=== PATIENT | female | born 1965 | race Caucasian/White ===

== ENCOUNTER → 2017-08-21 | Outpatient (CLI) | payer BC, SELFPAY | PROVIDERS: Visit Provider Nurse Practitioner Family | DX: R11.2 Nausea with vomiting, unspecified (principal); R10.84 Generalized abdominal pain | CPT/HCPCS: 36415; 80053; 81001; 85025; 87086 ==

== ENCOUNTER → 2019-02-12 12:11 | Outpatient (CLI) | payer OTHER, SELFPAY ==
--- NOTE | 2019-02-12 12:19 | XR_ITS ---
XR hand RT min 3V HISTORY: Posttraumatic pain ITS.REASON: S/P FALL YESTERDAY, RT HAND PAIN ORDERING PHYSICIAN: Aby Manuel APRN PATIENT AGE: 53 years COMPARISON: None FINDINGS: No fracture or dislocation. No lytic or blastic change. There is normal mineralization.. The joint spaces are well-preserved. No significant degenerative/arthritic changes. No erosive changes evident.. IMPRESSION: Negative, no acute finding
== END ==
PROVIDERS: PCP Internal Medicine Adolescent Medicine; Visit Provider Nurse Practitioner Family
DX: M79.641 Pain in right hand (principal)
CPT/HCPCS: 73130

== ENCOUNTER 2020-01-07 19:40 | Observation (INO) | payer OTHER, SELFPAY ==
[2020-01-07] VITALS (9 sets, daily range): BP systolic 101–171; BP diastolic 57–97; PULSE 70–79; RESP 14–18; TEMP 36.7; O2SAT 94–99; BMI 38.3; BMI 36.6
--- NOTE | 2020-01-07 19:40 | ECG_ITS ---
APPROVED REPORT Exam: Resting ECG HR:77 bpm ECG Measurements Heart Rate 77 AXES RI 120 P 36 QRSd 74 QRS 11 QT 378 T 4 QTc 427 <Conclusion> Normal sinus rhythm Normal ECG Electronically signed by : Barry Tanner, 01/08/2020 21:55:11
--- NOTE | 2020-01-07 19:50 | HMH.EDCP ---
ED Disposition Condition on Discharge: Good - Critical Care Critical Care Time: No <Javier Alcaraz - Last Filed: 01/07/20 19:50> <Murray Patel - Last Filed: 01/07/20 20:47> Clinical Impression: Obesity (BMI 30-39.9) Chest pain Qualifiers: Chest pain type: precordial pain Qualified Code(s): R07.2 - Precordial pain Disposition: Admitted as Observation Attestation: On 01/07/20, the high probability of a clinically significant, sudden or life threatening deterioration of the following system(s) required my full and direct attention, intervention and personal management. The time I documented below is in addition to time spent performing reported procedures but includes the following listed in this critical care notation. Medical Decision Making - Medical Records Medical records reviewed: Yes: I reviewed the patient's medical records. - Greg Inquiry Pt receiving controlled substance: No - ECG Data Tracing #1 I reviewed this ECG and interpreted as documented below: Normal Sinus Rhythm: Yes - FLETCHER Score for Non-Stemi Age of Patient: 50-59 years old Heart Rate: 70-89 bpm Systolic Blood Pressure: 160-199 mmHg CHF Kill[place] Class: I-No CHF Other Risk Factors: None <Javier Alcaraz - Last Filed: 01/07/20 19:50> - Lab Data Lab results reviewed: Yes: I reviewed the patient's lab results. Result diagrams: 01/07/20 19:47 01/07/20 19:47 - Radiology Data #1 Image(s): Chest Image Reviewed: Yes I reviewed the patient's radiology image Preliminary Findings: Normal/NAD - Reevaluation(s) Time: 20:44 <Murray Patel - Last Filed: 01/07/20 20:47> Vital Signs: 01/07/20 19:42 01/07/20 19:52 01/07/20 20:02 Temperature 98.0 F Temperature Source Oral Pulse Rate [Right] 78 77 72 Respiratory Rate 18 14 Blood Pressure [Right Arm] 171/97 H 127/72 134/83 Blood Pressure Mean [Right Arm] 121 90 100 Blood Pressure Source [Right Arm] Automatic Cuff Automatic Cuff Blood Pressure Position [Right Arm] Supine Supine 02 Sat by Pulse Oximetry 98 99 98 Oxygen Delivery Method Room Air Room Air Room Air 01/07/20 20:38 Temperature Temperature Source Pulse Rate [Right] 78 Respiratory Rate 18 Blood Pressure [Right Arm] 122/80 Blood Pressure Mean [Right Arm] 94 Blood Pressure Source [Right Arm] Blood Pressure Position [Right Arm] 02 Sat by Pulse Oximetry 95 Oxygen Delivery Method Room Air - Lab Data Lab Results 01/07/20 19:47: WBC 11.2 H, RBC 4.57, Hgb 13.0, Hct 41.5, MCV 90.8, MCH 28.4, MCHC 31.2 L, RDW 13.6, Plt Count 374, MPV 8.1, Neut % (Auto) 70.3, Lymph % (Auto) 21.0, [place] % (Auto) 3.8, Eos % (Auto) 3.4, Baso % (Auto) 1.5, Neut # (Auto) 7.9 H, Lymph # (Auto) 2.4, [place] # (Auto) 0.4, Eos # (Auto) 0.4, Baso # (Auto) 0.2 01/07/20 19:47: Sodium 142, Potassium 3.6, Chloride 106, Carbon Dioxide 27, Anion Gap 12.6, BUN 5 L, Creatinine 0.50 L, Estimated Creat Clear 231, Estimated GFR 130, Est GFR ( Amer) 157, Glucose 119 H, Calcium 9.1, Troponin I < 0.01 Orders (Tests/Meds): ED MEDICATIONS Generic Name Dose Route Start Last Admin Trade Name Freq PRN Reason Stop Dose Admin Sodium Chloride 1,000 mls @ 999 mls/hr 01/07/20 20:00 01/07/20 19:53 Sod Chlor 0.9% 1000ml Bag IV 01/07/20 21:00 999 mls/hr .Q1H1M CHANDRA Administration Discontinued Medications Generic Name Dose Route Start Last Admin Trade Name Freq PRN Reason Stop Dose Admin Aspirin 324 mg 01/07/20 19:50 01/07/20 19:53 Aspirin 81mg Chewable Tablet PO 01/07/20 19:51 324 mg ONCE ONE Administration Morphine Sulfate 4 mg 01/07/20 20:05 01/07/20 20:06 Morphine 4mg/Ml Syringe IV 01/07/20 20:06 4 mg ONCE ONE Administration Nitroglycerin 1 gm 01/07/20 19:50 01/07/20 19:53 Nitroglycerin 1 Inch Oint Udp TD 01/07/20 19:51 1 gm ONCE ONE Administration Ondansetron HCl 4 mg 01/07/20 20:05 01/07/20 20:06 Zofran 4mg/2ml Vial IV 01/07/20 20:06 4 mg ONCE ONE Administration
--- NOTE | 2020-01-07 19:51 | XR_ITS ---
PROCEDURE: XR CHEST 2V CLINICAL HISTORY: chest pain COMPARISON: No exams were available for comparison FINDINGS: The cardiomediastinal silhouette and pulmonary vascularity are within normal limits. The lungs are clear without infiltrates, suspicious nodules, or pleural effusions. No acute bony abnormalities. IMPRESSION: No acute findings. Dictated by: Toney Renee MD 01/07/2020 21:08 Electronically signed by Toney Renee MD in [place] 01/07/2020 21:08
[2020-01-07 19:57] LABS: Chloride 106 mmol/L (98-107); Sodium 142 mmol/L (136-145)
[2020-01-07 19:58] LABS: Potassium 3.6 mmoL/L (3.5-5.1)
[2020-01-07 19:59] LABS: Basophils # 0.2 K/mm3 (0-0.2); Basophils % 1.5 % (0.1-2.0); Eosinophils # 0.4 K/mm3 (0.0-0.4); Eosinophils % 3.4 % (0.1-12.0); Hematocrit 41.5 % (37.0-47.0); Lymphocytes # 2.4 K/mm3 (0.7-4.5); Mean Corpuscular HGB Conc 31.2 g/dL (31.8-35.4); Mean Corpuscular Hemoglobin 28.4 pg (27.0-31.2); Mean Corpuscular Volume 90.8 fl (81-99); Mean Platelet Volume 8.1 fl (7.4-10.4); Monocytes # 0.4 K/mm3 (0.1-1.0); Monocytes % 3.8 % (1.7-9.3); Neutrophils # 7.9 K/mm3 (1.8-7.8); Neutrophils % 70.3 % (37.0-80.0); Platelet Count 374 K/mm3 (142-424); Red Blood Count 4.57 M/mm3 (4.20-5.40); Red Cell Distribution Width 13.6 % (11.5-17.5); White Blood Count 11.2 K/mm3 (4.8-10.8)
[2020-01-07 20:00] LABS: Blood Urea Nitrogen 5 mg/dl (7-17); Creatinine Clearance Estimated 231 mL/min (50-200); Estimated Glomerular Filt Rate 130 ml/min (>60); GFR (African American) 157 ML/MIN (>60)
--- NOTE | 2020-01-07 20:00 | PC.NURSE ---
with patients permission, ED staff updated pt's who is outside waiting in his vehicle.
[2020-01-07 20:01] LABS: Anion Gap 12.6 mEq/L (5-15); Calcium 9.1 mg/dl (8.4-10.2); Carbon Dioxide 27 mmol/L (22.0-30.0); Glucose 119 mg/dl (74-100)
--- NOTE | 2020-01-07 20:01 | PC.NURSE ---
Radiology staff notified of xray order
--- NOTE | 2020-01-07 20:07 | PC.NURSE ---
Radiology staff present in the ED to take pt for xray
--- NOTE | 2020-01-07 20:13 | PC.NURSE ---
Radiology staff back with patient
[2020-01-07 20:28] LABS: Troponin I < 0.01 ng/ml (0.00-0.034)
--- NOTE | 2020-01-07 20:40 | PC.NURSE ---
spoke with nato about admission vasiliy --> cristino chest pain obs room 208
--- NOTE | 2020-01-07 20:41 | PC.NURSE ---
has been updated that the pt is getting admitted.
--- NOTE | 2020-01-07 21:29 | PC.NURSE ---
pt arrived to floor via wheelchair from ED
[2020-01-07 23:17] LABS: Troponin I < 0.01 ng/ml (0.00-0.034)
[2020-01-08] VITALS: BP 100/61; PULSE 62; PULSE 70; RESP 16; TEMP 36.7; O2SAT 95
[2020-01-08 02:29] LABS: Troponin I < 0.01 ng/ml (0.00-0.034)
[2020-01-08 04:00] VITALS: BP 101/68; PULSE 67; RESP 18; TEMP 36.5; O2SAT 93
[2020-01-08 05:30] VITALS: PULSE 60
[2020-01-08 06:09] VITALS: BMI 36.6
[2020-01-08 06:25] LABS: Basophils # 0.1 K/mm3 (0-0.2); Basophils % 0.6 % (0.1-2.0); Eosinophils # 0.2 K/mm3 (0.0-0.4); Eosinophils % 2.6 % (0.1-12.0); Hematocrit 37.3 % (37.0-47.0); Hemoglobin 11.7 g/dL (12.2-16.2); Lymphocytes # 2.9 K/mm3 (0.7-4.5); Lymphocytes % 32.2 % (10-50); Mean Corpuscular HGB Conc 31.4 g/dL (31.8-35.4); Mean Corpuscular Hemoglobin 28.3 pg (27.0-31.2); Mean Platelet Volume 7.5 fl (7.4-10.4); Monocytes # 0.4 K/mm3 (0.1-1.0); Monocytes % 4.5 % (1.7-9.3); Neutrophils # 5.4 K/mm3 (1.8-7.8); Neutrophils % 60.2 % (37.0-80.0); Platelet Count 319 K/mm3 (142-424); Red Blood Count 4.15 M/mm3 (4.20-5.40); Red Cell Distribution Width 13.5 % (11.5-17.5)
[2020-01-08 06:38] LABS: Chloride 108 mmol/L (98-107); Potassium 3.7 mmoL/L (3.5-5.1); Sodium 140 mmol/L (136-145)
[2020-01-08 06:41] LABS: Anion Gap 7.7 mEq/L (5-15); Blood Urea Nitrogen 5 mg/dl (7-17); Calcium 8.3 mg/dl (8.4-10.2); Carbon Dioxide 28 mmol/L (22.0-30.0); Cholesterol 158 mg/dl (140-200); Creatinine Clearance Estimated 183 mL/min (50-200); Estimated Glomerular Filt Rate 105 ml/min (>60); GFR (African American) 127 ML/MIN (>60); Glucose 92 mg/dl (74-100); Triglycerides 120 mg/dl (30-150); VLDL Cholesterol 24 mg/dL (0-40)
[2020-01-08 06:42] LABS: Chol/HDL Ratio 4.2 (1-3.5); HDL Cholesterol 38 mg/dl (40-60); Magnesium 2.1 mg/dl (1.6-2.3)
[2020-01-08 06:52] LABS: Direct LDL Cholesterol 113.89 mg/dL (100-129)
--- NOTE | 2020-01-08 07:34 | P.CONPHA_ITS ---
[facility] Pharmacy VTE Monitoring - Patient Demographics Admission date: 01/08/20 Report Date: 01/08/20 Time: 07:34 Allergies/Adverse Reactions: Patient Allergies No Known Allergies Allergy (Verified 08/13/19 13:18) Height: 1.7 m Weight: 105.744 kg Patient Problems: Current Active Problems Chest pain (Acute) Obesity (BMI 30-39.9) (Acute) - VTE Risk Labs: VTE Related Lab Results Hgb 11.7 g/dL (12.2-16.2) L 01/08/20 05:54 Hct 37.3 % (37.0-47.0) 01/08/20 05:54 Plt Count 319 K/mm3 (142-424) 01/08/20 05:54 BUN 5 mg/dl (7-17) L 01/08/20 05:54 Creatinine 0.60 mg/dl (0.52-1.04) 01/08/20 05:54 Estimated Creat Clear 183 mL/min (50-200) 01/08/20 05:54 Was VTE Risk Assessment Performed: Yes VTE Score: 3 VTE Risk Level: Low Risk Clinical Trial Participant: No - Prophylaxis VTE Prophylaxis Ordered?: Yes Types of VTE Prophylaxis: TEDS Knee High
--- NOTE | 2020-01-08 07:36 | PC.NURSE ---
Pt to floor 2128 from ED via w/c. Following admission process, pt showered and rested well. Resting with eyes closed on rounds. No c/o chest pain, only reported legs crawling and jerking r/t RLS. All three troponins 0.01, chest pain relieved by nitro paste while in ED. Discussed pt's home meds and speaking with PCP this am to get what she needs ordered, pt verbalized understanding. NPO, ECHO completed already, awaiting cardiology consult. IV infusing well, up to bathroom with steady gait noted. Nothing acute to report, presently resting in supine position, call light w/i reach, monitoring continues.
--- NOTE | 2020-01-08 07:38 | HMH.PHAINT ---
HOME MEDICATION RECONCILIATION COMPLETED USING LIST FROM HOME PHARMACY
[2020-01-08 08:00] VITALS: BP 96/63; PULSE 77; RESP 18; TEMP 36.4; O2SAT 100
--- NOTE | 2020-01-08 08:00 | CA_ITS ---
APPROVED REPORT EXAM: Comprehensive 2D, Doppler, and color-flow Echocardiogram Utility Maintenance Worker: Blaire Jackson CRT Ht: 5 ft 6 in Wt: 233lbs BSA: 2.13 BP: 134/83 mmHg Indications: Chest Pain, Hyperlipidemia, Hypertension/HDD, smoker 2D Dimensions LVOT 1.88 cm (M/F) 1.5-2.5 M-Mode Dimensions RVDd 2.25 cm (0.9-2.6) LVDd 4.97 cm (3.5-5.7) LVDs 3.14 cm (3.5-5.7) IVSd 1.21 cm (0.6-1.1) PWd 0.79 cm (0.6-1.1) EF (Teich) 66.50% FS 36.80% EDV (Teich) 116.60 mL ESV (Teich) 39.10 mL Left Ventricle Left atrium is upper limit of normal size, left ventricle is normal size, left ventricle wall thickness is upper limit of the normal, there is preserved left ventricular systolic function, visually estimated ejection fraction 55% with no regional wall motion abnormality, diastolic parameters are inconclusive. Right Ventricle Right atrium and right ventricular normal size and contractility. Aortic Valve Aortic valve is grossly normal, there is no aortic stenosis aortic insufficiency. Mitral Valve Mitral valve is grossly normal, there is mild mitral regurgitation. Tricuspid Valve Tricuspid valve is grossly normal, there is mild tricuspid regurgitation noted, calculated right ventricular systolic pressure is 34 mmHg. Pulmonic Valve Pulmonic valve is poorly visualized. Great Vessels Aortic root is normal size. Pericardium No significant pericardial effusion noted. Conclusion 1. Normal left ventricular size, preserved left ventricular systolic function, visually estimated ejection fraction 55% with no regional wall motion abnormality, diastolic parameters are inconclusive. 2. Mild mitral and tricuspid regurgitation, calculated right ventricular systolic pressure is 34 mmHg. 3. No significant pericardial effusion noted. Electronically signed by : Doc Lucio, 01/08/2020 15:33:12
--- NOTE | 2020-01-08 08:54 | HMH.HPDC ---
General - General Admission date:: 01/07/20 Discharge date: 01/08/20 *Admission Date: 01/08/20 *Chief complaint: Chest Pain *History of present illness: 54-year-old female with 2 days of progressively worsening substernal chest pain. Denies nausea, vomiting, palpitations. Some mild shortness of breath per her report. On presentation to the ER initial work-up showed normal EKG and normal troponins. History of smoking and obesity risk factors for coronary artery disease. Patient was admitted for observation overnight and serial troponin monitoring. States exertion somewhat made her chest pain worse. Denies much improvement with rest. Able to lay flat to sleep. Denies orthopnea. Denies any injury or trauma. Does report however having a history of fibromyalgia and recently being initiated on opiate therapy for chronic pain within the past few months. No increased strain that she reports. Of note, was seen several months ago in our clinic and initiated on treatment for hypertension. Has failed to follow-up for further management of elevated blood pressure. [facility] History I have reviewed the patient's past medical history: Yes Medical History: Denies:: Diabetes Mellitus Type 1, Diabetes Mellitus Type 2 *Have you ever received a pneumonia vaccine?: No *Have you received a flu vaccine this season?: No (pt reports, I forgot to get it. ) Other Medical History: Reports: Fibromyalgia, Other Other Surgeries: Yes: , Hysterectomy-Total Amputation: No Fractures: No - *Social History Smoking Status: Current every day smoker Tobacco Type: e-cigarettes # Packs/Day (cigarettes): 1 Alcohol Intake: never Alcohol Intake Frequency:: holidays/special occasions only Substance Use Type: marijuana *Occupational Status:: employed Housing: house Household Members: spouse, children *Travel in the last 8 weeks: None Family Hx:: Diabetes, Hypertension, Heart Attack, Thyroid Disorder Review of Systems - Review of Systems Review of systems:: pertinent systems reviewed and negative unless documented below (14 point review of systems performed, pertinent positives and negatives as per HPI) Exam Vital signs and Labs for Last 24 Hours: Temp Pulse Resp BP Pulse Ox 97.6 F 77 18 96/63 L 100 01/08/20 08:00 01/08/20 08:00 01/08/20 08:00 01/08/20 08:00 01/08/20 08:00 Laboratory Results - last 24 hr 01/07/20 19:47: WBC 11.2 H, RBC 4.57, Hgb 13.0, Hct 41.5, MCV 90.8, MCH 28.4, MCHC 31.2 L, RDW 13.6, Plt Count 374, MPV 8.1, Neut % (Auto) 70.3, Lymph % (Auto) 21.0, [place] % (Auto) 3.8, Eos % (Auto) 3.4, Baso % (Auto) 1.5, Neut # (Auto) 7.9 H, Lymph # (Auto) 2.4, [place] # (Auto) 0.4, Eos # (Auto) 0.4, Baso # (Auto) 0.2 01/07/20 19:47: Sodium 142, Potassium 3.6, Chloride 106, Carbon Dioxide 27, Anion Gap 12.6, BUN 5 L, Creatinine 0.50 L, Estimated Creat Clear 231, Estimated GFR 130, Est GFR ( Amer) 157, Glucose 119 H, Calcium 9.1, Troponin I < 0.01 01/07/20 22:38: Troponin I < 0.01 01/08/20 01:55: Troponin I < 0.01 01/08/20 05:54: WBC 9.0, RBC 4.15 L, Hgb 11.7 L, Hct 37.3, MCV 90.0, MCH 28.3, MCHC 31.4 L, RDW 13.5, Plt Count 319, MPV 7.5, Neut % (Auto) 60.2, Lymph % (Auto) 32.2, [place] % (Auto) 4.5, Eos % (Auto) 2.6, Baso % (Auto) 0.6, Neut # (Auto) 5.4, Lymph # (Auto) 2.9, [place] # (Auto) 0.4, Eos # (Auto) 0.2, Baso # (Auto) 0.1 01/08/20 05:54: Sodium 140, Potassium 3.7, Chloride 108 H, Carbon Dioxide 28, Anion Gap 7.7, BUN 5 L, Creatinine 0.60, Estimated Creat Clear 183, Estimated GFR 105, Est GFR ( Amer) 127, Glucose 92 D, Calcium 8.3 L, Magnesium 2.1, Triglycerides 120, Cholesterol 158, LDL Cholesterol Direct 113.89, VLDL Cholesterol 24, HDL Cholesterol 38 L, Cholesterol/HDL Ratio 4.2 H I & O for Last 24 hours: Intake & Output 01/05/20 01/06/20 01/07/20 01/08/20 23:59 23:59 23:59 23:59 Intake Total 1000 / 1000 380 / 380 Output Total 200 / 200 Balance 1000 / 800 180 / 180 Weight 105.687 kg 105.744 kg - Consti
--- NOTE | 2020-01-08 10:41 | HMH.PHAINT ---
DISCHARGE COUNSELING COMPLETED.
== END 2020-01-08 10:15 | disposition home or self-care (01) ==
LOC: ER 20:40 → 2ND 20:46
PROVIDERS: Family Medicine; Admitting Provider Emergency Medicine; Emergency Provider Emergency Medicine; PCP Internal Medicine Adolescent Medicine; Visit Provider Internal Medicine Adolescent Medicine
DX: R07.9 Chest pain, unspecified (principal); M79.7 Fibromyalgia; F17.290 Nicotine dependence, other tobacco product, uncomplicated
CPT/HCPCS: 36415; 71046; 80048; 80061; 83735; 84484; 85025; 93005; 93306; 96365; 96375; 99285; G0378; J2405

== ENCOUNTER → 2020-04-27 09:59 | Outpatient (CLI) | payer OTHER, SELFPAY ==
--- NOTE | 2020-04-27 10:22 | CT_ITS ---
PROCEDURE: CT ABDOMEN PELVIS W CON CLINICAL INDICATION: DIARRHEA UNSPECIFIED, RLQ PAIN COMPARISON: CT ABDPELW CT ABD PELVIS W/ CONTRAST from 04/01/2017 TECHNIQUE: IV Contrast: 75ML OPTIRAY 350 Oral Contrast 20ml Gastroview Axial images obtained with sagittal and coronal reformats. All CT scans at the facility use one or more dose reduction, viz: automated exposure control, ma/kV adjustment per patient size (including targeted exams where dose is matched to indication, i.e. head), or iterative reconstruction technique. FINDINGS: Lower thorax: The lower lung lizarraga are clear and there is no pleural fluid. Cardiac size is normal. ABDOMEN: Liver: No masses or biliary dilatation. Gallbladder: Nondistended. No radio opaque stones. Pancreas: No masses or peripancreatic fluid collections. Spleen: unremarkable Adrenals: unremarkable Kidneys/ureters: The kidneys are normal in size and show symmetrical function both appearing normal. ABDOMEN & PELVIS: Stomach bowel: There is a small sliding hiatal hernia. The stomach is mildly distended with ingested food particles but otherwise appears normal. The duodenal sweep and small bowel appear grossly normal. Most of the oral contrast is in the distal small bowel and colon. Peritoneum: No abnormal fluid collections. No obvious inflammatory changes. No free air. Lymph nodes: No enlarged lymph nodes apparent. Vasculature: There is scattered arteriosclerotic calcification of the abdominal aorta and proximal common iliac arteries but there is no aneurysm. Bones: No acute fracture PELVIS: Reproductive: Post hysterectomy Bladder: The urinary bladder is partially decompressed, there is no free fluid in the pelvis. Appendix: Unremarkable. No distention or periappendiceal phlegmonous change. IMPRESSION: No acute abdominal or pelvic pathology identified Dictated by: Dr. Rob Montemayor MD 04/27/2020 13:44 Dr. Rob Montemayor MD in [place] 04/27/2020 13:44
[2020-04-27 10:34] LABS: Basophils % 0.2 % (0.1-2.0); Eosinophils # 0.1 K/mm3 (0.0-0.4); Eosinophils % 1.4 % (0.1-12.0); Hematocrit 44.1 % (37.0-47.0); Hemoglobin 14.4 g/dL (12.2-16.2); Lymphocytes # 1.8 K/mm3 (0.7-4.5); Mean Corpuscular HGB Conc 32.6 g/dL (31.8-35.4); Mean Corpuscular Hemoglobin 29.5 pg (27.0-31.2); Mean Corpuscular Volume 90.4 fl (81-99); Mean Platelet Volume 7.6 fl (7.4-10.4); Monocytes # 0.3 K/mm3 (0.1-1.0); Monocytes % 2.8 % (1.7-9.3); Neutrophils # 6.7 K/mm3 (1.8-7.8); Neutrophils % 75.4 % (37.0-80.0); Platelet Count 363 K/mm3 (142-424); Red Blood Count 4.88 M/mm3 (4.20-5.40); Red Cell Distribution Width 13.9 % (11.5-17.5); White Blood Count 8.9 K/mm3 (4.8-10.8)
[2020-04-27 11:07] LABS: Chloride 103 mmol/L (98-107)
[2020-04-27 11:08] LABS: Potassium 4.1 mmoL/L (3.5-5.1); Sodium 140 mmol/L (136-145)
[2020-04-27 11:10] LABS: Blood Urea Nitrogen 7 mg/dl (7-17); Estimated Glomerular Filt Rate 105 ml/min (>60); GFR (African American) 127 ML/MIN (>60)
[2020-04-27 11:11] LABS: Alanine Aminotransferase 20 U/L (12-78); Albumin Level 4.2 g/dl (3.5-5.0); Albumin/Globulin Ratio 1.4 (1.1-1.8); Alkaline Phosphatase 105 U/L (38-126); Anion Gap 14.1 mEq/L (5-15); Aspartate Amino Transferase 31 U/L (14-36); Bilirubin,Total 0.6 mg/dl (0.2-1.3); Calcium 9.6 mg/dl (8.4-10.2); Carbon Dioxide 27 mmol/L (22.0-30.0); Globulin 2.9 g/dL (1.3-3.2); Glucose 103 mg/dl (74-100); Lipase 37 U/L (23-300); Total Protein,Serum 7.1 g/dl (6.3-8.2)
== END ==
PROVIDERS: PCP Internal Medicine Adolescent Medicine; Visit Provider Internal Medicine Adolescent Medicine
DX: R19.7 Diarrhea, unspecified (principal); R10.31 Right lower quadrant pain
CPT/HCPCS: 36415; 74177; 80053; 83690; 85025; Q9967

== ENCOUNTER → 2020-04-28 09:26 | Outpatient (CLI) | payer OTHER, SELFPAY ==
[2020-04-28 09:29] LABS: Adenovirus F 40/41, stool Not Detected (NotDetected); Astrovirus Not Detected (NotDetected); Campylobacter Not Detected (NotDetected); Clostridium Difficile A/B, PCR Not Detected (NotDetected); Cryptosporidium Not Detected (NotDetected); Cyclospora Cayetanesis Not Detected (NotDetected); Entamoeba histolytica Not Detected (NotDetected); Enteroaggregative E coli Not Detected (NotDetected); Enteropathogenic E coli Not Detected (NotDetected); Enterotoxigenic E coli Not Detected (NotDetected); Giardia lamblia Not Detected (NotDetected); Norovirus Not Detected (NotDetected); Plesimonas Shigalloides, PCR Not Detected (NotDetected); Rotavirus A Not Detected (NotDetected); Salmonella, PCR Not Detected (NotDetected); Sapovirus Not Detected (NotDetected); Shiga-like toxin E coli Not Detected (NotDetected); Shigella Enterovasive E coli Not Detected (NotDetected); Vibrio Cholerae Not Detected (NotDetected); Vibrio, PCR Not Detected (NotDetected); Yersinia Entercolitica, PCR Not Detected (NotDetected)
[2020-05-08 09:41] LABS: Lactoferrin, Fecal, Quant. <1.00 ug/mL(g) (0.00-7.24)
[2020-05-12 10:57] LABS: Calprotectin, Fecal 22 ug/g (0-120)
== END ==
PROVIDERS: Visit Provider Internal Medicine Adolescent Medicine
DX: R10.31 Right lower quadrant pain (principal); R19.7 Diarrhea, unspecified
CPT/HCPCS: 83630; 83993; 87507

== ENCOUNTER 2020-07-18 11:26 | Emergency (ER) | payer OTHER, SELFPAY ==
[2020-07-18 12:17] VITALS: BP 166/88; PULSE 82; RESP 14; TEMP 36.9; O2SAT 97; BMI 34.4
--- NOTE | 2020-07-18 12:23 | HMH.EDUTC ---
[facility] Disposition Clinical Impression: Nausea & vomiting Qualifiers: Vomiting type: unspecified Vomiting Intractability: unspecified Qualified Code(s): R11.2 - Nausea with vomiting, unspecified Disposition: Home, Self-Care Condition on Discharge: Good Instructions: Diarrhea, DI for Vomiting -- Adult, Nausea and Vomiting-Adult, Ondansetron Additional Instructions: ? Avoid fruit juices, as these do not replace minerals and can actually increase diarrhea. ? Children and adults can use sports drinks to replenish electrolytes. Younger children and infants should use products formulated for children, like oral rehydration solutions. ? Eat food in small amounts and let your stomach recover. ? Get lots of rest. You may feel tired or weak. ? No greasy or fried foods for the next 24-48 hours BRAT diet Bananas Rice Apples and [place] ? Make sure to drink plenty of liquids ? Return if needed ? Straight to ER if any life threatening symptoms ? Zofran as prescribed ? You was given an outpatient order for diarrhea panel, please collect specimen and bring back to outpatient lab then call back to the [facility] or follow up with family doctor for results ? Follow up with family doctor in the next 48-72 hours if no improvement or any worsening of symptoms You was tested for today for COVID19 your test result should be back in the next 24-48 hours, you may call to the [facility] tomorrow to see if your test results are back and the result [phone] You was given a handout with instructions for Self Quarantine and Self isolation for while you wait on test results and what to do if they are positive If you are positive the Health Dept will be contacting you also Prescriptions: Ondansetron [Zofran 4mg ODT] 4 mg PO TIDP PRN #9 tab PRN Reason: Nausea Transmission Status: Received by [facility] #[id number] Referrals: Barry Tanner MD [Primary Care Provider] - As needed Forms: Work/School Release Time of Disposition: 12:30 Medical Decision Making - Greg Inquiry Pt receiving controlled substance: No Greg was queried for this patient: No Vital Signs: 07/18/20 12:17 Temperature 98.5 F Temperature Source Oral Pulse Rate [Left Radial] 82 Respiratory Rate 14 Blood Pressure [Right Arm] 166/88 H Blood Pressure Mean [Right Arm] 114 Blood Pressure Source [Right Arm] Automatic Cuff Blood Pressure Position [Right Arm] Sitting 02 Sat by Pulse Oximetry 97 Oxygen Delivery Method Room Air Orders (Tests/Meds): ED MEDICATIONS Discontinued Medications Generic Name Dose Route Start Last Admin Trade Name Jose PRN Reason Stop Dose Admin Ondansetron HCl 4 mg 07/18/20 11:59 07/18/20 12:17 Ondansetron 4mg Odt SL 07/18/20 12:00 4 mg ONCE ONE Administration ORDERS Category Date Time Status Covid-19 Nasal PCR ([facility]) Routine Lab 07/18/20 11:45 Received Medical Decision Narrative: Patient reports that nausea improved after zofran no vomiting or diarrhea since arrival [facility] HPI - General Stated complaint: vomiting,diarrhea X 3 days Time Seen by Provider: 07/18/20 12:23 Mode of Arrival: Ambulatory Source of Information: Patient Limitations: No Limitations Description of Symptoms (Recalled from Triage Doc. by RN): pt states she has had vomiting and diarrhea for 3 days as well as a headache that started yesterday HEENT Symptoms (Recalled from RN notes): Yes (headache) Resp Symptoms (Recalled from RN notes): No Skin Symptoms (Recalled from RN notes): No MS Symptoms (Recalled from RN notes): No Functional Status (Recalled from RN notes): wnl - History of Present Illness Provider Complaint: Patient states that she has been having nausea and diarrhea on and off for about 3 days States that today diarrhea is better but she is still having some nausea and vomited earlier today States that she was worried that she may have COVID and wanted to get tested - Related Data Home Medications Medication Instructions Recorded Confirmed
[2020-07-18 13:00] VITALS: BP 166/88; PULSE 82; RESP 14; TEMP 36.9; O2SAT 97
== END 2020-07-18 13:00 | disposition home or self-care (01) ==
PROVIDERS: Emergency Provider Nurse Practitioner; PCP Internal Medicine Adolescent Medicine
DX: U07.1 COVID-19 (principal); M79.7 Fibromyalgia; F17.290 Nicotine dependence, other tobacco product, uncomplicated
CPT/HCPCS: 96372; 99202; U0003

== ENCOUNTER → 2020-09-23 13:31 | Outpatient (CLI) | payer OTHER, SELFPAY ==
[2020-09-24 11:17] LABS: Covid-19 Nasal PCR Sendout P&C Negative
== END ==
PROVIDERS: PCP Internal Medicine Adolescent Medicine; Visit Provider Nurse Practitioner Family
DX: Z20.822 Contact with and (suspected) exposure to COVID-19 (principal)
CPT/HCPCS: U0004

== ENCOUNTER 2021-03-29 16:19 | Emergency (ER) | payer OTHER, SELFPAY ==
[2021-03-29 16:20] VITALS: BP 124/84; PULSE 88; RESP 18; TEMP 37.2; O2SAT 98; BMI 28.1
--- NOTE | 2021-03-29 16:46 | CT_ITS ---
PROCEDURE INFORMATION: Exam: CT Abdomen And Pelvis With Contrast Exam date and time: 03/29/2021 4:46 PM Age: 55 years old Clinical indication: Abdominal pain TECHNIQUE: Imaging protocol: Computed tomography of the abdomen and pelvis with contrast. Radiation optimization: All CT scans at this facility use at least one of these dose optimization techniques: automated exposure control; mA and/or kV adjustment per patient size (includes targeted exams where dose is matched to clinical indication); or iterative reconstruction. Contrast material: ISOVUE; Contrast volume: 75 ml; Contrast route: IV; COMPARISON: CT ABDOMEN PELVIS W CON 04/27/2020 1:21 PM FINDINGS: Liver: Normal. No mass. Gallbladder and bile ducts: Normal. No calcified stones. No ductal dilation. Pancreas: Normal. No ductal dilation. Spleen: Normal. No splenomegaly. Adrenal glands: Normal. No mass. Kidneys and ureters: Normal. No hydronephrosis. Stomach and bowel: High density material in the colon is presumably retained contrast. Appendix: No evidence of appendicitis. Intraperitoneal space: Unremarkable. No free air. No significant fluid collection. Vasculature: Unremarkable. No abdominal aortic aneurysm. Lymph nodes: Unremarkable. No enlarged lymph nodes. Urinary bladder: Unremarkable as visualized. Reproductive: Status post hysterectomy. Bones/joints: Unremarkable. No acute fracture. Soft tissues: Unremarkable. IMPRESSION: No acute intraabdominal pathology. No findings to explain the patient's symptoms.
[2021-03-29 16:56] LABS: Chloride 103 mmol/L (98-107)
[2021-03-29 16:57] LABS: Sodium 142 mmol/L (136-145)
[2021-03-29 16:59] LABS: Alanine Aminotransferase 23 U/L (12-78); Albumin Level 4.5 g/dl (3.5-5.0); Albumin/Globulin Ratio 1.5 (1.1-1.8); Alkaline Phosphatase 128 U/L (38-126); Anion Gap 13.8 mEq/L (5-15); Aspartate Amino Transferase 33 U/L (14-36); Bilirubin,Total 0.6 mg/dl (0.2-1.3); Blood Urea Nitrogen 4 mg/dl (7-17); Calcium 9.6 mg/dl (8.4-10.2); Carbon Dioxide 28 mmol/L (22.0-30.0); Creatinine Clearance Estimated 140 mL/min (50-200); Estimated Glomerular Filt Rate 105 ml/min (>60); GFR (African American) 127 ML/MIN (>60); Globulin 3.1 g/dL (1.3-3.2); Glucose 151 mg/dl (74-100); Lipase 22 U/L (23-300); Total Protein,Serum 7.6 g/dl (6.3-8.2)
[2021-03-29 17:04] LABS: Basophils % 0.4 % (0.1-2.0); Eosinophils # 0.1 K/mm3 (0.0-0.4); Eosinophils % 0.9 % (0.1-12.0); Hemoglobin 14.5 g/dL (12.2-16.2); Lymphocytes # 2.6 K/mm3 (0.7-4.5); Lymphocytes % 24.1 % (10-50); Mean Corpuscular HGB Conc 32.9 g/dL (31.8-35.4); Mean Corpuscular Hemoglobin 29.5 pg (27.0-31.2); Mean Corpuscular Volume 89.6 fl (81-99); Mean Platelet Volume 8.5 fl (7.4-10.4); Monocytes # 0.4 K/mm3 (0.1-1.0); Monocytes % 3.4 % (1.7-9.3); Neutrophils # 7.7 K/mm3 (1.8-7.8); Neutrophils % 71.3 % (37.0-80.0); Platelet Count 332 K/mm3 (142-424); Red Blood Count 4.91 M/mm3 (4.20-5.40); Red Cell Distribution Width 13.9 % (11.5-17.5); White Blood Count 10.8 K/mm3 (4.8-10.8)
[2021-03-29 17:05] LABS: Potassium 2.8 mmoL/L (3.5-5.1)
--- NOTE | 2021-03-29 17:20 | PC.NURSE ---
Patient to radiology at this time
--- NOTE | 2021-03-29 17:30 | PC.NURSE ---
TOLD MD ABOUT Potassium at this time
[2021-03-29 18:00] LABS: Microscopic, Urine URINE MICROSCOPIC (MICROSCOPIC)
[2021-03-29 18:02] LABS: Appearance,Urine SL CLOUDY (Clear); Bilirubin,Urine Negative (Negative); Blood, Urine Negative (Negative); Color,Urine YELLOW (Yellow); Glucose,Urine (UA) Negative (Negative); Ketones,Urine Negative (Negative); Leukocyte Esterase,Urine Negative (Negative); Nitrate,Urine Negative (Negative); Protein,Urine Negative (Negative); Specific Gravity, Urine <= 1.005 (1.005-1.030)
[2021-03-29 18:24] LABS: Bacteria,Urine Trace /lpf; RBC,Urine Occasional #/hpf (0-3); Squamous Epithelial Cell,Urine Occasional #/hpf (0-5); WBC,Urine Occasional #/hpf (0-3)
--- NOTE | 2021-03-29 18:47 | HMH.EDNVD ---
ED Disposition Clinical Impression: Acute vomiting, Acute diarrhea, Cystitis Disposition: Home, Self-Care Condition on Discharge: Good Instructions: DI for Nausea -- Adult, DI for Nausea -- Child, DI for Diarrhea and Traveler's Diarrhea -- Adult Additional Instructions: Increase oral hydration use the Zofran as needed for nausea return to the ED for any new or worsening symptoms. Prescriptions: Ondansetron [Zofran 4mg ODT] 4 mg PO TIDP PRN #9 tab PRN Reason: Nausea Transmission Status: Pending to [facility] #[id number] Referrals: Barry Tanner MD [Primary Care Provider] - - Critical Care Critical Care Time: No Attestation: On 03/29/21, the high probability of a clinically significant, sudden or life threatening deterioration of the following system(s) required my full and direct attention, intervention and personal management. The time I documented below is in addition to time spent performing reported procedures but includes the following listed in this critical care notation. Medical Decision Making - Medical Records Medical records reviewed: Yes: I reviewed the patient's medical records. - Greg Inquiry Pt receiving controlled substance: No Vital Signs: 03/29/21 16:20 Temperature 98.9 F Temperature Source Oral Pulse Rate [Right] 88 Respiratory Rate 18 Blood Pressure [Right Arm] 124/84 Blood Pressure Mean [Right Arm] 97 02 Sat by Pulse Oximetry 98 - Lab Data Lab Results 03/29/21 16:35: WBC 10.8, RBC 4.91, Hgb 14.5, Hct 44.0, MCV 89.6, MCH 29.5, MCHC 32.9, RDW 13.9, Plt Count 332, MPV 8.5, Neut % (Auto) 71.3, Lymph % (Auto) 24.1, [place] % (Auto) 3.4, Eos % (Auto) 0.9, Baso % (Auto) 0.4, Neut # (Auto) 7.7, Lymph # (Auto) 2.6, [place] # (Auto) 0.4, Eos # (Auto) 0.1, Baso # (Auto) 0.0 03/29/21 16:35: Sodium 142, Potassium 2.8 L*, Chloride 103, Carbon Dioxide 28, Anion Gap 13.8, BUN 4 L, Creatinine 0.60, Estimated Creat Clear 140, Estimated GFR 105, Est GFR ( Amer) 127, Glucose 151 H, Calcium 9.6, Total Bilirubin 0.6, AST 33, ALT 23, Alkaline Phosphatase 128 H, Total Protein 7.6, Albumin 4.5, Globulin 3.1, Albumin/Globulin Ratio 1.5, Lipase 22 L 03/29/21 17:52: Urine Color Yellow, Urine Appearance Sl cloudy, Urine pH 7.0, Ur Specific [place] <= 1.005, Urine Protein Negative, Urine Glucose (UA) Negative, Urine Ketones Negative, Urine Blood Negative, Urine Nitrate Negative, Urine Bilirubin Negative, Urine Urobilinogen 1.0, Ur Leukocyte Esterase Negative, Urine RBC Occasional, Urine WBC Occasional, Ur Squamous Epith Cells Occasional, Urine Bacteria Trace Result diagrams: 03/29/21 16:35 03/29/21 16:35 Orders (Tests/Meds): ED MEDICATIONS Discontinued Medications Generic Name Dose Route Start Last Admin Trade Name Freq PRN Reason Stop Dose Admin Sodium Chloride 1,000 mls @ 999 mls/hr 03/29/21 16:45 03/29/21 16:46 Sod Chlor 0.9% 1000ml Bag IV 03/29/21 17:45 999 mls/hr .Q1H1M CHANDRA Administration Iopamidol 75 ml 03/29/21 17:35 03/29/21 17:36 Iopamidol-370 (76%);100ml Bottle IV 03/29/21 17:36 75 ml ONCE ONE Administration Ondansetron HCl 4 mg 03/29/21 16:45 03/29/21 16:46 Ondansetron 4mg/2ml Vial IV 03/29/21 16:46 4 mg ONCE ONE Administration Potassium Chloride 60 meq 03/29/21 17:57 03/29/21 18:09 Potassium Chloride 20meq Tab PO 03/29/21 17:58 60 meq ONCE ONE Administration Sodium Chloride 10 ml 03/29/21 17:35 03/29/21 17:36 Sodium Chloride 0.9% 10ml Syr (Rad Only) IV 03/29/21 17:36 10 ml ONCE ONE Administration - CT Data CT Scan: Abdomen Time Received: 18:[address] Reviewed: Yes: I have viewed the radiologist's interpretation Preliminary Findings: Normal/NAD Medical Decision Narrative: 55-year-old female who presents with acute nausea vomiting diarrhea for 5 days. She is well-appearing nontoxic has no hemodynamic instability. CT abdomen pelvis demonstrates no acute abnormalities. Patient got 1 L of IV fluids and p
[2021-03-29 19:00] VITALS: BP 138/77; PULSE 85; RESP 16; TEMP 37.1; O2SAT 98
== END 2021-03-29 19:03 | disposition home or self-care (01) ==
PROVIDERS: Emergency Provider Student in an Organized Health Care Education/Training Program; PCP Internal Medicine Adolescent Medicine
DX: N30.00 Acute cystitis without hematuria (principal); F17.290 Nicotine dependence, other tobacco product, uncomplicated
CPT/HCPCS: 74177; 80053; 81001; 83690; 85025; 99283; J2405; Q9967

== ENCOUNTER → 2021-09-17 12:07 | Outpatient (CLI) | payer OTHER, SELFPAY | PROVIDERS: Visit Provider Nurse Practitioner Family | DX: U07.1 COVID-19 (principal) | CPT/HCPCS: C9803; U0003; U0005 ==

== ENCOUNTER → 2022-12-04 14:07 | Outpatient (CLI) | payer OTHER, SELFPAY ==
--- NOTE | 2022-12-04 14:10 | XR_ITS ---
FINAL REPORT TECHNIQUE: Chest PA & Lateral CLINICAL HISTORY: productive cough 3-6 months, chest pain/heaviness COMPARISON: January 2020 FINDINGS: 2 views of the chest were performed. The heart size is normal. The mediastinum is within normal limits. There is no acute cardiopulmonary process. There are no pleural effusions. There is no pneumothorax. The bony thorax appears intact. IMPRESSION: No acute cardiopulmonary process. Reviewed, Interpreted and Dictated by Parker Mayers MD Transcribed by Jet Swanson Authenticated and [facility]
== END ==
PROVIDERS: PCP Emergency Medicine; Visit Provider Nurse Practitioner Family
DX: R05.9 Cough, unspecified (principal)
CPT/HCPCS: 71046

== ENCOUNTER → 2022-12-05 07:19 | Outpatient (CLI) | payer OTHER, SELFPAY ==
[2022-12-05 07:36] LABS: Basophils # 0.1 K/mm3 (0-0.2); Basophils % 0.7 % (0.1-2.0); Eosinophils # 0.2 K/mm3 (0.0-0.4); Eosinophils % 2.6 % (0.1-12.0); Hematocrit 46.4 % (37.0-47.0); Hemoglobin 14.1 g/dL (12.2-16.2); Lymphocytes # 3.2 K/mm3 (0.7-4.5); Lymphocytes % 36.2 % (10-50); Mean Corpuscular HGB Conc 30.4 g/dL (31.8-35.4); Mean Corpuscular Hemoglobin 28.3 pg (27.0-31.2); Mean Corpuscular Volume 92.9 fl (81-99); Mean Platelet Volume 7.1 fl (7.4-10.4); Monocytes # 0.5 K/mm3 (0.1-1.0); Monocytes % 5.1 % (1.7-9.3); Neutrophils # 4.9 K/mm3 (1.8-7.8); Neutrophils % 55.5 % (37.0-80.0); Platelet Count 322 K/mm3 (142-424); Red Blood Count 4.99 M/mm3 (4.20-5.40); Red Cell Distribution Width 13.8 % (11.5-17.5); White Blood Count 8.8 K/mm3 (4.8-10.8)
[2022-12-05 08:37] LABS: Chloride 105 mmol/L (98-107); Sodium 139 mmol/L (136-145)
[2022-12-05 08:38] LABS: Potassium 3.7 mmoL/L (3.5-5.1)
[2022-12-05 08:40] LABS: Alanine Aminotransferase 15 U/L (12-78); Albumin Level 3.8 g/dl (3.5-5.0); Albumin/Globulin Ratio 1.5 (1.1-1.8); Alkaline Phosphatase 105 U/L (38-126); Anion Gap 8.7 mEq/L (5-15); Aspartate Amino Transferase 26 U/L (14-36); Bilirubin,Total 0.4 mg/dl (0.2-1.3); Blood Urea Nitrogen 8 mg/dl (7-17); Carbon Dioxide 29 mmol/L (22.0-30.0); Estimated Glomerular Filt Rate 87 ml/min (>60); GFR (African American) 105 ML/MIN (>60); Globulin 2.5 g/dL (1.3-3.2); Total Protein,Serum 6.3 g/dl (6.3-8.2)
[2022-12-05 08:41] LABS: Calcium 9.2 mg/dl (8.4-10.2); Chol/HDL Ratio 4.2 (1-3.5); Cholesterol 219 mg/dl (140-200); Glucose 98 mg/dl (74-100); HDL Cholesterol 52 mg/dl (40-60); Triglycerides 109 mg/dl (30-150); VLDL Cholesterol 22 mg/dL (0-40)
[2022-12-05 08:52] LABS: Direct LDL Cholesterol 143.69 mg/dL (100-129)
== END ==
LOC: LAB 07:21
PROVIDERS: PCP Nurse Practitioner Family; Visit Provider Nurse Practitioner Family
DX: R07.9 Chest pain, unspecified (principal); Z79.899 Other long term (current) drug therapy
CPT/HCPCS: 36415; 80053; 80061; 85025

== ENCOUNTER → 2022-12-19 08:37 | Outpatient (CLI) | payer OTHER, SELFPAY ==
--- NOTE | 2022-12-19 08:37 | CT_ITS ---
FINAL REPORT CLINICAL HISTORY: lung cancer screening, currently vapes for 8 yrs, quit smoking cigarettes (2 pks per day) 8 yrs ago. Uncle had lung cancer and is exposed to second hand smoke. FINDINGS: Low-Dose Chest CT Axial images were obtained from the lung apex to the mid abdomen by computed tomography. Low-dose protocol was utilized. CTDI vol (mGy): 2.90 DLP (mGy-cm): 102.12 There is no axillary adenopathy. There is no hilar or mediastinal adenopathy. The heart is proper size. There is no pericardial or pleural effusion. Lung window images demonstrate no suspicious infiltrate or nodule. There are mild changes of emphysema with mild pulmonary scarring. Limited images of the upper abdomen are unremarkable. IMPRESSION: Mild changes of emphysema with mild pulmonary scarring. No suspicious infiltrate or nodule identified. Lung RADS category 1. Recommend 12 month follow-up low-dose chest CT. Reviewed, Interpreted and Dictated by Jose Cota III, MD Transcribed by Sylvia Mishra Authenticated and [facility]
== END ==
PROVIDERS: PCP Nurse Practitioner Family; Visit Provider Nurse Practitioner Family
DX: Z87.891 Personal history of nicotine dependence (principal); Z12.2 Encounter for screening for malignant neoplasm of respiratory organs; R05.9 Cough, unspecified
CPT/HCPCS: 71271

== ENCOUNTER → 2023-08-08 12:57 | Outpatient (CLI) | payer OTHER, SELFPAY ==
--- NOTE | 2023-08-08 12:57 | MM_ITS ---
PROCEDURE INFORMATION: Exam: Bilateral Screening 3D Mammography Exam date and time: 08/08/2023 12:53 PM Age: 58 years old Clinical indication: Screening examination TECHNIQUE: Imaging protocol: Bilateral Screening tomosynthesis and 2D mammography including computer-aided detection (CAD) when performed. COMPARISON: 1. MG DMDXUAVL DIG MAMM-DX UNI ADD VIEWS-LT 09/27/2012 1:09 PM 2. MG DMSB DIGITAL MAMM-SCREEN BILATERAL 08/08/2012 3:59 PM FINDINGS: MAMMOGRAPHY: Breast composition: The breasts are heterogeneously dense, which may obscure small masses. Mass: None. Architectural distortion: None. Calcifications: No suspicious calcifications. Asymmetric density: None. Skin thickening: None. Axillary adenopathy: None. IMPRESSION: No mammographic evidence of malignancy. Annual screening is recommended unless otherwise clinically indicated. ASSESSMENT: BI-RADS Category 1: Negative
== END ==
PROVIDERS: PCP Emergency Medicine; Visit Provider Emergency Medicine
DX: Z12.31 Encounter for screening mammogram for malignant neoplasm of breast (principal)
CPT/HCPCS: 77063; 77067

== ENCOUNTER → 2023-08-21 23:16 | Outpatient (CLI) | payer OTHER, SELFPAY ==
[2023-08-21 18:32] LABS: Barbiturates Screen,Urine Negative ng/ml (<200); Benzodiazepines Screen,Urine Positive ng/ml (<200)
[2023-08-21 18:33] LABS: Amphetamine/Metha Screen,Urine Negative ng/ml (<1000)
[2023-08-21 18:34] LABS: Cannabinoid Screen,Urine Positive ng/ml (<50); Methadone Screen,Urine Negative ng/ml (<300)
[2023-08-21 18:35] LABS: Cocaine Screen,Urine Negative ng/ml (<300)
[2023-08-21 18:36] LABS: Opiate Screen,Urine Positive ng/ml (<300)
[2023-08-21 18:37] LABS: Phencyclidine Screen,Urine Negative ng/ml (<25)
== END ==
PROVIDERS: PCP Internal Medicine; Visit Provider Internal Medicine
DX: M51.16 Intervertebral disc disorders with radiculopathy, lumbar region (principal); Z79.899 Other long term (current) drug therapy
CPT/HCPCS: 80305

== ENCOUNTER 2023-09-24 12:11 | Outpatient (CLI) | payer OTHER, MEDICAID, SELFPAY ==
[2023-09-24 18:01] LABS: Amphetamine/Metha Screen,Urine Negative ng/ml (<1000); Barbiturates Screen,Urine Negative ng/ml (<200); Benzodiazepines Screen,Urine Positive ng/ml (<200); Cannabinoid Screen,Urine Positive ng/ml (<50); Cocaine Screen,Urine Negative ng/ml (<300); Methadone Screen,Urine Negative ng/ml (<300); Opiate Screen,Urine Positive ng/ml (<300); Phencyclidine Screen,Urine Negative ng/ml (<25)
== END 2023-09-24 23:59 ==
LOC: LAB.DROPOF 12:13
PROVIDERS: PCP Internal Medicine; Visit Provider Internal Medicine
DX: Z79.899 Other long term (current) drug therapy (principal)
CPT/HCPCS: 80307

== ENCOUNTER 2023-10-05 15:22 | Emergency (ER) | payer OTHER, SELFPAY ==
[2023-10-05 15:23] VITALS: BP 122/90; PULSE 69; RESP 20; TEMP 36.8; O2SAT 94; BMI 29.6
[2023-10-05 15:40] VITALS: BP 136/84; PULSE 66; O2SAT 96
[2023-10-05 16:00] VITALS: BP 127/77; PULSE 61; O2SAT 94
--- NOTE | 2023-10-05 16:04 | ED_ITS ---
Discharge Plan Disposition Patient Disposition: Left Against Medical Advice Prescriptions Prescriptions: No Action albuterol sulfate 90 mcg/actuation HFA aerosol inhaler 2 puff INHALATION Q6H PRN (Reason: wheezing) 7 Days Qty: 6.7 0RF Rx Instructions: administer with spacer ropinirole 3 mg tablet 3 mg PO DAILY PRN (Reason: restless leg(s)) 30 Days Qty: 45 1RF semaglutide 0.25 mg or 0.5 mg (2 mg/3 mL) pen injector 0.5 mg SQ WEEKLY Qty: 3 2RF duloxetine [Cymbalta] 60 mg capsule,delayed release(DR/EC) 60 mg PO BID lidocaine 5 % adhesive patch,medicated 1 patch TOPICAL DAILY Qty: 30 1RF hydrocodone-acetaminophen 7.5-325 mg tablet 1 tab PO TID 30 Days Qty: 90 0RF pregabalin 150 mg capsule 150 mg PO BID Qty: 60 1RF Referrals Follow up/Referrals: Nathan Scales DO [Primary Care Provider] - See instructions Clinical Impressions Clinical Impression: Migraine Stand Alone Forms Stand Alone Forms: Work/School Release Discharge ED Provider: Wilmar Silva General Adult HPI General Chief complaint: Headache Stated complaint: Headache, neck pain Time Seen by Provider: 10/05/23 15:31 Mode of Arrival: Ambulatory Source of Information: Patient Limitations: No Limitations Description of Symptoms (Recalled from ER Triage Doc. by RN): pt has had a headache since last night, pt states it starts in back of her neck and goes up the back of head and is dull at times and sharp at times. pt has no neuro deficits or vision changes and states loud noises aggravate it History of Present Illness HPI narrative: 58-year-old history of, hyperlipidemia, COPD, marijuana abuse, fibromyalgia, chronic neck and back pain presenting with headache. Patient states that she used to have migraines in the past, has not had one in about 5 to 10 years. Yesterday, 2/ around noon, she states that she cracked her neck and had onset of mild headache. Since that time it has been progressive. Denies vision changes, unilateral deficits, chest pain, shortness of breath, but did have 1 episode of nonbloody, nonbilious vomiting. No pain with range of motion of neck. Nothing in particular makes it better or worse. She is sensitive to sound, not light. Related Data Home Medications Medication Instructions Recorded Confirmed duloxetine 60 mg capsule,delayed 60 mg PO BID Depression 01/29/18 10/05/23 release (Cymbalta) Previous Rx's Medication Instructions Recorded albuterol sulfate 90 mcg/actuation 2 puff inhalation Q6H PRN wheezing 09/23/20 aerosol inhaler 7 days #6.7 grams lidocaine 5 % topical patch 1 patch topical DAILY #30 ea 05/03/23 ropinirole 3 mg tablet 3 mg PO DAILY PRN restless leg(s) 08/22/23 30 days #45 tabs semaglutide 0.25 mg or 0.5 mg (2 0.5 mg (0.736 mL) SQ WEEKLY #3 mL 09/24/23 mg/3 mL) subcutaneous pen injector hydrocodone 7.5 mg-acetaminophen 1 tab PO TID 30 days #90 tabs 10/01/23 325 mg tablet pregabalin 150 mg capsule 150 mg PO BID #60 caps 10/01/23 Allergies Allergy/AdvReac Type Severity Reaction Status Date / Time bupropion [From Wellbutrin] AdvReac Nightmare Verified 10/05/23 15:00 [facility] Disclaimer: The information contained in this section may have been updated after the patient was seen, as this information can be updated by other users. Medical History B12 deficiency delivery delivered Surgical History H/O dilation and curettage H/O: hysterectomy Family History Other Coronary artery disease Diabetes Heart attack Kidney disease Thyroid disorder Social History Smoking Status: Current every day smoker tobacco type: e-cigarettes alcohol intake: never substance use type: marijuana current occupational status: employed Travel in the last 8 weeks: None household members: spouse and children housing: house current occupational exposures/hazards: No ROS Obtained: Yes All systems reviewed & no additional complaints except as documented Physical Exam General General appearance: alert and in no apparent distress Head Head exam: atraumatic and normocephalic Eye Eye exam: Present normal appearance, PERRL and EOMI ENT ENT exam: Present mucous membranes moist Neck Neck exam: Present normal inspection, full ROM and trachea midline Respiratory Respiratory exam: Absent respiratory distress, wheezes, stridor, accessory muscle use or prolonged expiratory phase Cardiovascular Cardiovascular exam: Present normal rhythm Abdominal Exam Abdominal exam: Present soft; Absent distention, tenderness, guarding, rebound or rigidity Extremities Exam Extremities exam: Absent edema Neurological Exam Neurological exam: Present alert, oriented X3, CN II-XII intact and normal gait; Absent motor sensory deficit Skin Skin exam: Present warm and dry; Absent diaphoresis or erythema Medical Decision Making Medical Records Medical records reviewed: Yes I reviewed the patient's medical records. Greg Inquiry Pt receiving controlled substance: No Greg was queried for this patient: No Vital Signs: 10/05/23 15:23 10/05/23 15:40 10/05/23 16:00 Temperature 98.3 F Temperature Source Oral Pulse Rate 66 61 Pulse Rate [Right Radial] 69 Respiratory Rate 20 Blood Pressure 136/84 127/77 Blood Pressure [Right Arm] 122/90 Blood Pressure Mean 101 93 Blood Pressure Mean [Right Arm] 100 02 Sat by Pulse Oximetry 94 L 96 94 L Oxygen Delivery Method Room Air Room Air Room Air 10/05/23 16:20 10/05/23 17:05 Temperature 98.0 F Temperature Source Pulse Rate 71 73 Pulse Rate [Right Radial] Respiratory Rate 18 Blood Pressure 135/85 135/85 Blood Pressure [Right Arm] Blood Pressure Mean 101 Blood Pressure Mean [Right Arm] 02 Sat by Pulse Oximetry 96 Oxygen Delivery Method Room Air Room Air Orders (Tests/Meds): ED MEDICATIONS Generic Name Dose Route Start Last Admin Trade Name Freq PRN Reason Stop Dose Admin Sodium Chloride 10 ml 10/05/23 16:44 Sodium Chloride 0.9% 10ml Vial IV 11/04/23 16:43 NEEDED PRN to Dilute Lorazepam inj Discontinued Medications Generic Name Dose Route Start Last Admin Trade Name Freq PRN Reason Stop Dose Admin Acetaminophen 1,000 mg 10/05/23 15:56 10/05/23 16:11 Acetaminophen 500mg Tab PO 10/05/23 15:57 1,000 mg ONCE ONE Administration Dexamethasone Sodium Phosphate 10 mg 10/05/23 15:56 10/05/23 16:16 Dexamethasone 4mg/Ml 1ml Vial IV 10/05/23 15:57 10 mg ONCE ONE Administration Diphenhydramine HCl 25 mg 10/05/23 15:56 10/05/23 16:12 Diphenhydramine 50mg/Ml Vial IV 10/05/23 15:57 25 mg ONCE ONE Administration Lactated Ringer's 1,000 mls @ 999 mls/hr 10/05/23 15:56 10/05/23 16:11 Lactated Ringer's 1000 Ml Bag IV 10/05/23 16:56 999 mls/hr .Q1H1M ONE Administration Magnesium Sulfate 2 gm in 50 mls @ 50 mls/hr 10/05/23 15:56 10/05/23 16:11 Magnesium Sulfate 2gm/50ml Premix IV 10/05/23 16:55 50 mls/hr ONCE ONE Administration Ketorolac Tromethamine 15 mg 10/05/23 15:56 10/05/23 16:14 Ketorolac 30mg/Ml Vial IV 10/05/23 15:57 15 mg ONCE ONE Administration Lorazepam 0.5 mg 10/05/23 16:44 10/05/23 16:48 Lorazepam 2mg/Ml Vial IV 10/05/23 16:45 0.5 mg ONCE ONE Administration Prochlorperazine Edisylate 10 mg 10/05/23 15:56 10/05/23 16:13 Prochlorperazine 10mg/2ml Vial IV 10/05/23 15:57 10 mg ONCE ONE Administration Medical Decision Narrative: 58-year-old history of, hyperlipidemia, COPD, marijuana abuse, fibromyalgia, chronic neck and back pain presenting with headache. Patient states that she used to have migraines in the past, has not had one in about 5 to 10 years. Yesterday, 10/04 around noon, she states that she cracked her neck and had onset of mild headache. Since that time it has been progressive. Denies vision changes, unilateral deficits, chest pain, shortness of breath, but did have 1 episode of nonbloody, nonbilious vomiting. No pain with range of motion of neck. Nothing in particular makes it better or worse. She is sensitive to sound, not light. History was obtained via conversation with patient. On arrival, patient hemodynamically stable, alert, oriented x4, appropriate, GCS 15, moving all extremities spontaneously, pupils equal and reactive to light. Full physical exam performed and significant for well-appearing woman in no acute distress. EOMs intact and full, no evidence of visual field deficits. Patient with normal range of motion of neck in all [place]. No tenderness on palpation of the neck. No evidence of meningismus. Neurovascularly intact. Differential includes headache, migraine, cervical dissection, ligamentous injury, intracranial hemorrhage, among others. Patient was given Toradol, acetaminophen, Compazine, Benadryl, fluids, Decadron for symptomatic management and correction of underlying abnormalities. Prior to CT scan, patient coming restless and headache improved. The patient left AGAINST MEDICAL ADVICE after a thorough discussion of the risks of doing so, including a discussion of potential alternative plans. These risks include but are not limited to clinical decompensation, fpc disability and . The patient appears capable of making this decision. I have advised the patient to immediately return if there are any further problems or if they change their mind about seeking further care. Critical Care Critical Care Time Critical Care Time: No
[2023-10-05] MEDS: LACTATED RINGERS 1000ML 1,000 ML 999 ML IV (16:11)
[2023-10-05] MEDS: MAGNESIUM SULFATE IN WATER 2 GM/50 ML PIGGYBACK IV (16:11)
[2023-10-05] MEDS: ACETAMINOPHEN 500MG TAB 1000 MG PO (16:11)
[2023-10-05] MEDS: diphenhydrAMINE 50MG/ML VIAL 25 MG IV (16:12)
[2023-10-05] MEDS: PROCHLORPERAZINE 10MG/2ML VIAL 10 MG IV (16:13)
[2023-10-05] MEDS: KETOROLAC 30MG/ML VIAL 15 MG IV (16:14)
[2023-10-05] MEDS: DEXAMETHASONE 4MG/ML 1ML VIAL 10 MG IV (16:16)
[2023-10-05 16:20] VITALS: BP 135/85; PULSE 71; O2SAT 96
--- NOTE | 2023-10-05 16:40 | PC.NURSE ---
magy rowley called and stated patient could not hold still and wanted some something so ER Md ordered 0.5 mg Ativan. ER nurse gave dose and then
[2023-10-05] MEDS: LORazepam 2MG/ML VIAL 0.5 MG IV (16:48)
--- NOTE | 2023-10-05 16:53 | PC.NURSE ---
chief technician brought patient back to room and stated pt refused scan and is ready to go, ER made aware
--- NOTE | 2023-10-05 16:55 | PC.NURSE ---
pt is wanting to leave AMA due to leg pain and restlessness. pt came back from ct and said to take her iv out she is leaving and going home. RN advised ER MD would come in and talk to her and then nurse would bring in a form to sign. pt verbalized understanding
--- NOTE | 2023-10-05 17:03 | PC.NURSE ---
Pt states headache is better and signed the AMA form. ER MD and charge nurse made aware
[2023-10-05 17:05] VITALS: BP 135/85; PULSE 73; RESP 18; TEMP 36.7; O2SAT 95
== END 2023-10-05 17:15 | disposition left against medical advice (07) ==
PROVIDERS: Emergency Provider Emergency Medicine; PCP Internal Medicine
DX: G43.909 Migraine, unspecified, not intractable, without status migrainosus (principal); M54.2 Cervicalgia; M54.9 Dorsalgia, unspecified; J44.9 Chronic obstructive pulmonary disease, unspecified; G89.29 Other chronic pain; E78.5 Hyperlipidemia, unspecified; R11.10 Vomiting, unspecified; F17.290 Nicotine dependence, other tobacco product, uncomplicated
CPT/HCPCS: 96361; 96365; 96375; 99284; J3475

== ENCOUNTER 2023-10-26 15:42 | Outpatient (CLI) | payer OTHER, SELFPAY ==
--- NOTE | 2023-10-26 15:43 | MR_ITS ---
FINAL REPORT TECHNIQUE: Multiplanar and multisequence imaging of the brain was obtained before and after contrast administration. CLINICAL HISTORY: migraines. LEFT SIDED NECK PAIN. COMPARISON: None FINDINGS: The gyri and sulci are within normal limits for age. There is no mass effect or midline shift. There are mild periventricular and subcortical white matter changes. No hydrocephalus. The cerebellum and brainstem have an unremarkable appearance. There are no areas of restricted diffusion on diffusion weighted images to suggest acute infarct. Soft tissues are without acute abnormality. There is a mucous retention cyst in the sphenoid sinus. No air-fluid levels are noted in the sphenoid sinuses. No pathologic contrast enhancement is identified. IMPRESSION: No acute intracranial abnormality and no pathologic contrast enhancement. Mild periventricular and subcortical white matter changes, that can be secondary to chronic ischemic/gliotic microvascular change, sequela of migraine, or demyelination. Reviewed, Interpreted and Dictated by Ann Conde MD Transcribed by Rosemarie Perkins Authenticated and [facility]
--- NOTE | 2023-10-26 15:43 | MR_ITS ---
FINAL REPORT TECHNIQUE: Multi plantar and multisequence imaging of the cervical spine was obtained before and after the administration of intravenous contrast. CLINICAL HISTORY: LEFT SIDED neck pain WITH MIGRAINES COMPARISON: None FINDINGS: There is mild reversal of the normal cervical lordosis. Vertebral body height is preserved. A few small vertebral body hemangiomas are identified. There is no edema or pathologic marrow replacement. The signal intensity within the substance of the spinal cord is normal. There is no paraspinal mass or fluid collection. C2-C3: There is bilateral facet osteoarthropathy with moderate to severe right neural foraminal narrowing. No canal stenosis is identified. C3-C4: There is mild facet osteoarthropathy producing mild left neural foraminal narrowing. There is no canal stenosis identified. C4-C5: An annular bulge is present with facet osteoarthropathy and osteophytes. There is mild bilateral neural foraminal narrowing. C5-C6: An annular bulge is present with facet osteoarthropathy and osteophytes, with mild central canal stenosis and bilateral neural foraminal narrowing. C6-C7: An annular bulge is present with facet osteoarthropathy and osteophytes, with mild bilateral neural foraminal narrowing. C7-T1: There is no focal disc herniation, central stenosis or neural foraminal narrowing. Postcontrast images reveal no pathologic contrast enhancement. IMPRESSION: Multilevel cervical degenerative changes present, with multilevel facet arthropathy, mild canal stenosis at the C5-6 level, and multilevel mild to moderate neural foraminal narrowing. Reviewed, Interpreted and Dictated by Ann Conde MD Transcribed by Rosemarie Perkins Authenticated and . [facility]
[2023-10-26] MEDS: SODIUM CHLORIDE 0.9% 10ML SYR (RAD ONLY) 10 ML IV (17:22)
[2023-10-26] MEDS: GADOTERIDOL INJ 17ML SYRINGE 17 ML IV (17:22)
== END 2023-10-26 23:59 ==
LOC: RAD 15:43
PROVIDERS: PCP Internal Medicine; Visit Provider Internal Medicine
DX: G43.909 Migraine, unspecified, not intractable, without status migrainosus (principal); M54.2 Cervicalgia
CPT/HCPCS: 70553; 72156; 76376; A9576

== ENCOUNTER 2023-11-26 09:06 | Outpatient (POV) | payer OTHER, SELFPAY ==
--- NOTE | 2023-11-26 09:26 | EXP.PAIN.OV ---
HPI Data of Consult Patient: new to practice Consult date: 11/26/23 Requesting Physician: Nevaeh Hawley APRN Primary Care Provider: Nathan Scales DO Consult Narrative Reason for consult: Low back pain, bilateral leg pain History of present illness: Ms. Walters is a 58 year old female who presents today as a new patient. She is a referral from Dr. Nicole's office. Today she rates her pain an 8 out of 10. Patient states majority of her pain is all in her low back and hips. She describes it as an aching, throbbing sensation with numbness and tingling. She does state this has been going on for years and progressively worsened unrelated to any specific trauma or injury. She states she has tried [id number] Tylenol and ibuprofen along with heat and ice and topicals with minimal relief. Patient does state the pain interferes with her ability perform activities of daily living such as cooking and cleaning. Patient denies any prior surgery history in her back or injections for back pain. Patient has had cervical imaging in the past however states this is not bothering her currently. Patient has had physical therapy and chiropractor in the past with no additional change of her symptoms.She is prescribed Anton 7.5 mg 3 times a day from her primary care provider. Patient does also states she has a history of fibromyalgia and restless leg syndrome. Her Greg has been reviewed and is appropriate. CC: Nevaeh Hawley APRN [facility] Disclaimer: The information contained in this section may have been updated after the patient was seen, as this information can be updated by other users. Medical History delivery delivered B12 deficiency Surgical History H/O dilation and curettage H/O: hysterectomy Family History Other Coronary artery disease Diabetes Heart attack Kidney disease Thyroid disorder Social History Smoking Status: Current every day smoker tobacco type: e-cigarettes alcohol intake: never substance use type: marijuana current occupational status: employed Travel in the last 8 weeks: None household members: spouse and children housing: house current occupational exposures/hazards: No Review of Systems Review of Systems Review of systems:: pertinent systems reviewed and negative unless documented below Review of systems (narrative): Review of Systems: General: No recent weight changes, no fever, no sleep disturbances Respiratory: No cough, no shortness of air, no recurring pulmonary infections Cardiovascular/peripheral vascular: No chest pain, no palpitations, no edema, no shortness of breath Gastrointestinal: No new onset incontinence, normal bowel movements reported Genitourinary: No new onset incontinence Musculoskeletal: Low back pain, bilateral hip pain Psychiatric: [Normal mood/affect] Neurological: [Denies weakness in extremities], [denies balance issues] Meds Home Medications and Allergies Home Medications Medication Instructions Recorded Confirmed Type duloxetine 60 mg capsule,delayed 60 mg PO BID Depression 01/29/18 11/08/23 History release (Cymbalta) albuterol sulfate 90 mcg/actuation 2 puff inhalation Q6H PRN wheezing 09/23/20 11/08/23 Rx aerosol inhaler 7 days #6.7 grams lidocaine 5 % topical patch 1 patch topical DAILY #30 ea 05/03/23 11/08/23 Rx ropinirole 3 mg tablet 3 mg PO DAILY PRN restless leg(s) 08/22/23 11/08/23 Rx 30 days #45 tabs semaglutide 0.25 mg or 0.5 mg (2 0.5 mg (0.736 mL) SQ WEEKLY #3 mL 09/24/23 11/08/23 Rx mg/3 mL) subcutaneous pen injector hydrocodone 7.5 mg-acetaminophen 1 tab PO TID 30 days #90 tabs 11/02/23 11/08/23 Rx 325 mg tablet pregabalin 150 mg capsule 150 mg PO BID #60 caps 11/02/23 11/08/23 Rx New Prescriptions to Start Prescriptions: Allergies Allergy/AdvReac Type Severity Reaction Status Date / Time bupropion [From Wellbutrin] AdvReac Nightmare Verified 11/08/23 13:26 Objective Narrative: Physical Exam: General: Alert and oriented x3, no acute distress, pleasant and cooperative Lungs: Respirations even and unlabored, symmetrical chest expansion Eyes: PERRL Musculoskeletal: Flexion and extension of lumbar [spine] somewhat guarded secondary to pain, [antalgic gait noted] extreme point tenderness along bilateral SIs with positive bilateral Ten's, Mindy's, Gaenslen's, compression and distraction exam Neurological: Speech clear, no gross sensory deficit Additional findings Additional findings: FINDINGS: There is mild reversal of the normal cervical lordosis. Vertebral body height is preserved. A few small vertebral body hemangiomas are identified. There is no edema or pathologic marrow replacement. The signal intensity within the substance of the spinal cord is normal. There is no paraspinal mass or fluid collection. C2-C3: There is bilateral facet osteoarthropathy with moderate to severe right neural foraminal narrowing. No canal stenosis is identified. C3-C4: There is mild facet osteoarthropathy producing mild left neural foraminal narrowing. There is no canal stenosis identified. C4-C5: An annular bulge is present with facet osteoarthropathy and osteophytes. There is mild bilateral neural foraminal narrowing. C5-C6: An annular bulge is present with facet osteoarthropathy and osteophytes, with mild central canal stenosis and bilateral neural foraminal narrowing. C6-C7: An annular bulge is present with facet osteoarthropathy and osteophytes, with mild bilateral neural foraminal narrowing. C7-T1: There is no focal disc herniation, central stenosis or neural foraminal narrowing. Postcontrast images reveal no pathologic contrast enhancement. IMPRESSION: Multilevel cervical degenerative changes present, with multilevel facet arthropathy, mild canal stenosis at the C5-6 level, and multilevel mild to moderate neural foraminal narrowing. Reviewed, Interpreted and Dictated by Ann Conde MD Transcribed by Rosemarie Perkins Authenticated and [facility] Assessment and Plan *Assessment and plan (1) Degenerative disc disease, cervical: Status: Acute Category: Medical Code(s): M50.30 - Other cervical disc degeneration, unspecified cervical region (2) Cervical spinal stenosis: Status: Acute Category: Medical Code(s): M48.02 - Spinal stenosis, cervical region (3) Low back pain: Status: Acute Qualifiers: Chronicity: chronic Back pain laterality: bilateral Sciatica presence: with sciatica Sciatica laterality: bilateral sciatica Qualified Code(s): M54.42 - Lumbago with sciatica, left side; M54.41 - Lumbago with sciatica, right side; G89.29 - Other chronic pain Category: Medical Code(s): M54.50 - Low back pain, unspecified (4) Lumbar radiculopathy: Status: Acute Category: Medical Code(s): M54.16 - Radiculopathy, lumbar region (5) Bilateral sacroiliitis: Status: Acute Category: Medical Code(s): M46.1 - Sacroiliitis, not elsewhere classified Plan Patient is experiencing worsening pain in her low back and bilateral hips. Patient did have extreme point tenderness along her bilateral SIs with a positive bilateral Ten's, Mindy's, Gaenslen's, compression and distraction exam. I have discussed with patient that she may benefit from bilateral SI injections. Risk and benefits were discussed with the patient and she would like to proceed forward with this plan of care. Patient has tried and failed conservative therapy such as oral medication, heat and ice, topicals, prior physical therapy and chiropractor therapy. We will schedule the patient for bilateral SI injections under fluoroscopy. I will also order x-ray imaging of her lumbar spine with the plan to proceed forward with more advanced imaging at a later date. Patient has been instructed to contact the clinic with any concerns before the next appointment. Dr. Valiente has reviewed this note and agrees with this plan of care. This note was dictated using voice recognition software and make contain errors or omissions.
[2023-11-26 09:37] VITALS: BP 127/70; PULSE 83; RESP 18; O2SAT 97; BMI 28.3
== END 2023-11-26 23:59 ==
LOC: SC.PAIN 09:06
PROVIDERS: PCP Internal Medicine; Visit Provider Nurse Practitioner Family
DX: M50.30 Other cervical disc degeneration, unspecified cervical region (principal); M48.02 Spinal stenosis, cervical region; M54.42 Lumbago with sciatica, left side; M54.41 Lumbago with sciatica, right side; G89.29 Other chronic pain; M54.16 Radiculopathy, lumbar region; M46.1 Sacroiliitis, not elsewhere classified
CPT/HCPCS: 99202; G0463

== ENCOUNTER 2023-11-28 13:52 | Outpatient (CLI) | payer OTHER, SELFPAY ==
--- NOTE | 2023-11-28 13:57 | XR_ITS ---
FINAL REPORT TECHNIQUE: 5 views CLINICAL HISTORY: LBP x 6 months COMPARISON: None FINDINGS: There is no fracture present. There is no malalignment. There is minimal hypertrophic change present in the lower lumbar spine. IMPRESSION: No acute process. Minimal hypertrophic change as described. Reviewed, Interpreted and Dictated by Parker Mayers MD Transcribed by Rosemarie Perkins Authenticated and [facility]
== END 2023-11-28 23:59 ==
LOC: RAD 13:53
PROVIDERS: PCP Internal Medicine; Visit Provider Nurse Practitioner Family
DX: M54.50 Low back pain, unspecified (principal)
CPT/HCPCS: 72110

== ENCOUNTER 2023-12-18 08:39 | Day surgery (SDC) | payer OTHER, SELFPAY ==
[2023-12-18 08:40] VITALS: BP 123/84; PULSE 84; RESP 18; O2SAT 97; BMI 28.1
[2023-12-18] MEDS: LIDOCAINE 1% 5ML PF VIAL 5 ML (09:16)
[2023-12-18] MEDS: methylPREDNISolone ACETATE 80MG/ML VIAL 80 MG (09:17)
[2023-12-18] MEDS: BUPIVACAINE 0.25% 10ML INJ 25 MG IJ (09:17)
[2023-12-18 09:18] VITALS: BP 134/87; PULSE 73; PULSE 80; RESP 18; O2SAT 98
[2023-12-18 09:22] VITALS: BP 114/64; PULSE 73; RESP 18; O2SAT 97
--- NOTE | 2023-12-18 09:31 | P.PCN_ITS ---
Procedure Date: 12/18/23 Time: 09:00 Anesthesiologist:: Ander Koch CRNA Complications:: None Pre-procedure Diagnosis:: Bilateral sacroiliitis Post-procedure Diagnosis:: Same. Indications for Procedure:: Patient is a very pleasant 58-year-old female comes our clinic today for bilateral sacroiliac joint injections. Patient reports low lumbar back pain off the midline bilaterally. Also, bilateral posterior hip pain. Patient reports difficulty transitioning from sitting to standing. Difficulty with ambulation and or sitting for any length of time due to increased pain. She rates her pain today 8/10. Procedure Details:: Procedure: Bilateral sacroiliac joint injections under fluoroscopy Informed consent was obtained and the risks and benefits of the procedure were explained to the patient.~ The patient was taken to the procedure room and noninvasive monitors were placed including a noninvasive blood pressure cuff and pulse oximeter.~ The patient was placed prone on the procedure table. Both hips were cleansed using Betadine as a cleansing solution. C-arm fluoroscopy was used to view the right sacroiliac joint.~ The skin and subcutaneous tissues were anesthetized using lidocaine 1.5% and a 25-gauge needle.~ After this, a 22-gauge spinal needle was inserted under fluoroscopic guidance into the inferior aspect of the right sacroiliac joint.~ Omnipaque dye was injected and good spread was seen throughout the joint.~ After this, approximately 5 mL of bupivacaine, 0.25% and Depo-Medrol, 40 mg was incrementally injected into the right sacroiliac joint. We then moved to the left sacroiliac joint.~ The skin and subcutaneous tissues were anesthetized using lidocaine 1.5% and a 25-gauge needle.~ After this, a 22- gauge spinal needle was inserted under fluoroscopic guidance into the inferior aspect of the left sacroiliac joint.~ Omnipaque dye was injected and good spread was seen throughout the joint. After this, approximately 5 mL of bupivacaine, 0.25% and Depo-Medrol, 40 mg was incrementally injected into the left sacroiliac joint.~ The patient tolerated the procedure well with no complications. The patient was observed in the Pain Clinic and then was discharged home neurologically intact. Plan and Disposition:: Patient was discharged without incident.
== END 2023-12-18 09:22 | disposition home or self-care (01) ==
LOC: SC.PAINP 08:39
PROVIDERS: PCP Internal Medicine; Visit Provider Nurse Anesthetist, Certified Registered
DX: M46.1 Sacroiliitis, not elsewhere classified (principal)
CPT/HCPCS: 27096; G0260; J1010

== ENCOUNTER 2024-01-02 10:28 | Outpatient (POV) | payer OTHER, SELFPAY ==
[2024-01-02 10:48] VITALS: BP 109/62; PULSE 79; RESP 16; O2SAT 96; BMI 28.3
--- NOTE | 2024-01-02 11:04 | A.OFFVIS_ITS ---
[facility] Pain Management SOAP Note Subjective:: Patient is a pleasant 58-year-old female who presents today for follow-up bilateral SI injections on 12/18/2023 and lumbar x-ray. Today she rates her pain a 5 out of 10. Patient denies any new trauma or injury. Patient states that her injections did provide at least 50% improvement however only lasted 2 days and she did feel like she experienced significant nausea and vomiting for 2 days following this injection. Patient states she is unsure whether or not if this was caused by the overall injection or not. Patient does states she continues to have chronic pain throughout her low back and legs with limited range of motion. Patient does state the pain interferes with her ability perform activities of daily living. Patient has tried and failed conservative therapy including oral medication, heat and ice, topicals, physical therapy, chiropractor therapy and at home exercising and stretching for longer than 6 weeks. Patient is prescribed [place] from an outside provider. Her Greg has been reviewed and is appropriate. Review of Systems: General: No recent weight changes, no fever, no sleep disturbances Respiratory: No cough, no shortness of air, no recurring pulmonary infections Cardiovascular/peripheral vascular: No chest pain, no palpitations, no edema, no shortness of breath Gastrointestinal: No new onset incontinence, normal bowel movements reported Genitourinary: No new onset incontinence Musculoskeletal: Low back pain, leg pain Psychiatric: [Normal mood/affect] Neurological: [Denies weakness in extremities], [denies balance issues] Objective:: Physical Exam: General: Alert and oriented x3, no acute distress, pleasant and cooperative Lungs: Respirations even and unlabored, symmetrical chest expansion Eyes: PERRL Musculoskeletal: Flexion and extension of lumbar [spine] somewhat guarded secondary to pain, [antalgic gait noted] Neurological: Speech clear, no gross sensory deficit Assessment:: Low back pain with lumbar radiculopathy symptoms, bilateral sacroiliitis Plan:: Patient continues to experience significant pain in her low back and legs. I have discussed with the patient that we will proceed forward with ordering an MRI without contrast of her lumbar spine. I have discussed in future she may benefit from lumbar epidurals however we will follow-up with this at later visits. I have discussed with patient that the nausea and vomiting could be completely unrelated to the injection however there is no guarantee and that we will continue to monitor how she does with future injections. Patient agrees with this plan of care. Patient will return to clinic in 1 month for reevaluation of symptoms and plan of care. Patient has been instructed to contact the clinic with any concerns before the next appointment. Dr. Valiente has reviewed this note and agrees with this plan of care. This note was dictated using voice recognition software and make contain errors or omissions. [facility] Disclaimer: The information contained in this section may have been updated after the patient was seen, as this information can be updated by other users. Medical History delivery delivered B12 deficiency Surgical History H/O dilation and curettage H/O: hysterectomy Family History Other Coronary artery disease Diabetes Heart attack Kidney disease Thyroid disorder Social History Smoking Status: Current every day smoker tobacco type: e-cigarettes alcohol intake: never substance use type: marijuana current occupational status: employed Travel in the last 8 weeks: None household members: spouse and children housing: house current occupational exposures/hazards: No
== END 2024-01-02 23:59 | disposition home or self-care (01) ==
LOC: SC.PAIN 10:31
PROVIDERS: PCP Internal Medicine; Visit Provider Nurse Practitioner Family
DX: M54.16 Radiculopathy, lumbar region (principal); M54.50 Low back pain, unspecified; M46.1 Sacroiliitis, not elsewhere classified
CPT/HCPCS: 99212; G0463

== ENCOUNTER 2024-01-14 08:45 | Outpatient (CLI) | payer OTHER, SELFPAY ==
[2024-01-15 18:27] LABS: Basophils % 0.3 % (0.1-2.0); Eosinophils # 0.2 K/mm3 (0.0-0.4); Hematocrit 42.3 % (37.0-47.0); Hemoglobin 12.7 g/dL (12.2-16.2); Lymphocytes # 2.3 K/mm3 (0.7-4.5); Lymphocytes % 31.6 % (10-50); Mean Corpuscular HGB Conc 30.1 g/dL (31.8-35.4); Mean Corpuscular Hemoglobin 28.8 pg (27.0-31.2); Mean Corpuscular Volume 95.7 fl (81-99); Mean Platelet Volume 8.9 fl (7.4-10.4); Monocytes # 0.3 K/mm3 (0.1-1.0); Monocytes % 4.4 % (1.7-9.3); Neutrophils # 4.6 K/mm3 (1.8-7.8); Neutrophils % 61.8 % (37.0-80.0); Platelet Count 324 K/mm3 (142-424); Red Blood Count 4.42 M/mm3 (4.20-5.40); Red Cell Distribution Width 14.4 % (11.5-17.5); White Blood Count 7.4 K/mm3 (4.8-10.8)
[2024-01-15 18:50] LABS: Chloride 106 mmol/L (98-107); Potassium 4.3 mmoL/L (3.5-5.1); Sodium 142 mmol/L (136-145)
[2024-01-15 18:52] LABS: Alanine Aminotransferase 19 U/L (12-78); Anion Gap 11.3 mEq/L (5-15); Aspartate Amino Transferase 25 U/L (14-36); Blood Urea Nitrogen 10 mg/dl (7-17); Carbon Dioxide 29 mmol/L (22.0-30.0); Estimated Glomerular Filt Rate 103 ml/min (>60); GFR (African American) 125 ML/MIN (>60)
[2024-01-15 18:53] LABS: Albumin Level 3.7 g/dl (3.5-5.0); Albumin/Globulin Ratio 1.4 (1.1-1.8); Alkaline Phosphatase 113 U/L (38-126); Bilirubin,Total 0.4 mg/dl (0.2-1.3); Calcium 9.3 mg/dl (8.4-10.2); Chol/HDL Ratio 2.8 (1-3.5); Cholesterol 242 mg/dl (140-200); Globulin 2.6 g/dL (1.3-3.2); Glucose 91 mg/dl (74-100); HDL Cholesterol 88 mg/dl (40-60); Total Protein,Serum 6.3 g/dl (6.3-8.2); Triglycerides 80 mg/dl (30-150); VLDL Cholesterol 16 mg/dL (0-40)
[2024-01-15 19:05] LABS: Direct LDL Cholesterol 144.06 mg/dL (100-129)
[2024-01-15 19:53] LABS: 25-OH Vitamin D, Total 19.1 ng/mL (30-100)
[2024-01-15 20:52] LABS: Vitamin B12 300 pg/mL (239-931)
== END 2024-01-14 23:59 | disposition home or self-care (01) ==
LOC: LAB.DROPOF 01-16 10:18
PROVIDERS: PCP Internal Medicine; Visit Provider Internal Medicine
DX: E78.2 Mixed hyperlipidemia (principal); Z79.899 Other long term (current) drug therapy; E55.9 Vitamin D deficiency, unspecified
CPT/HCPCS: 80053; 80061; 82306; 82607; 85025

== ENCOUNTER 2024-05-21 08:55 | Outpatient (CLI) | payer OTHER, SELFPAY ==
[2024-05-21 20:48] LABS: 25-OH Vitamin D, Total 38.3 ng/mL (30-100)
[2024-05-21 21:25] LABS: Blood Urea Nitrogen 6 mg/dl (7-17); Chol/HDL Ratio 4.3 (1-3.5); Cholesterol 199 mg/dl (140-200); Estimated Glomerular Filt Rate 103 ml/min (>60); GFR (African American) 125 ML/MIN (>60); HDL Cholesterol 46 mg/dl (40-60); Triglycerides 159 mg/dl (30-150); VLDL Cholesterol 32 mg/dL (0-40)
[2024-05-21 21:36] LABS: Direct LDL Cholesterol 112.52 mg/dL (100-129)
== END 2024-05-21 23:59 | disposition home or self-care (01) ==
LOC: LAB.DROPOF 05-22 08:57
PROVIDERS: PCP Internal Medicine; Visit Provider Internal Medicine
DX: G43.909 Migraine, unspecified, not intractable, without status migrainosus (principal); E78.2 Mixed hyperlipidemia; E55.9 Vitamin D deficiency, unspecified
CPT/HCPCS: 80061; 82306; 82565; 84520

== ENCOUNTER 2024-06-19 13:15 | Outpatient (CLI) | payer OTHER, SELFPAY ==
[2024-06-19 13:20] LABS: Adenovirus F 40/41, stool Not Detected (NotDetected); Astrovirus Not Detected (NotDetected); Campylobacter Not Detected (NotDetected); Clostridium Difficile A/B, PCR Not Detected (NotDetected); Cryptosporidium Not Detected (NotDetected); Cyclospora Cayetanesis Not Detected (NotDetected); Entamoeba histolytica Not Detected (NotDetected); Enteroaggregative E coli Not Detected (NotDetected); Enteropathogenic E coli Not Detected (NotDetected); Enterotoxigenic E coli Not Detected (NotDetected); Giardia lamblia Not Detected (NotDetected); Norovirus Not Detected (NotDetected); Plesimonas Shigalloides, PCR Not Detected (NotDetected); Rotavirus A Not Detected (NotDetected); Salmonella, PCR Not Detected (NotDetected); Sapovirus Not Detected (NotDetected); Shiga-like toxin E coli Not Detected (NotDetected); Shigella Enterovasive E coli Not Detected (NotDetected); Vibrio Cholerae Not Detected (NotDetected); Vibrio, PCR Not Detected (NotDetected); Yersinia Entercolitica, PCR Not Detected (NotDetected)
== END 2024-06-19 23:59 | disposition home or self-care (01) ==
LOC: LAB 13:15
PROVIDERS: PCP Internal Medicine; Visit Provider Nurse Practitioner Family
DX: R15.9 Full incontinence of feces (principal); R15.2 Fecal urgency
CPT/HCPCS: 87506

== ENCOUNTER 2024-09-11 07:38 | Outpatient (CLI) | payer BC, SELFPAY ==
--- NOTE | 2024-09-11 07:45 | CA_ITS ---
APPROVED REPORT EXAM: Comprehensive 2D, Doppler, and color-flow Echocardiogram Acupuncturist: Nasra Nevarez RVT Ht: 5 ft 7 in Wt: 223lbs BSA: 2.12 BP: 150/90 mmHg Indications: SOA,CP,EDEMA,HLD,HTN,FATIGUE,SMOKER 2D Dimensions LA Volume 26.20 mL LA Volume Index 12.36 mL/m2 (M/F) 16-34 M-Mode Dimensions RVDd 2.98 cm (0.9-2.6) LA Diam 3.22 cm (1.9-4.0) LVDd 5.42 cm (3.5-5.7) LVDs 3.76 cm (3.5-5.7) IVSd 0.61 cm (0.6-1.1) PWd 0.54 cm (0.6-1.1) EF (Teich) 57.60% FS 30.60% EDV (Teich) 142.50 mL ESV (Teich) 60.40 mL LV Diastology E Decel Time 173 (160-240 msec) E/A Ratio 0.8 Aortic Valve AO Peak GR. 4.90 mmHg Mitral Valve MV E Max Maximiliano. 58.0 (40-130 cm/s) MV A Velocity 69.0 (40-130 cm/s) E/A Ratio 0.84 MV PHT 51.0 ms Pulmonary Valve PV Peak Velocity 70.0 (50-150 cm/s) Tricuspid Valve TR P. Velocity 275.00 cm/s RAP Estimate 10.00 mmHg RVSP 40.20 mmHg Left Ventricle The left ventricle is normal size. The left ventricular systolic function is low normal. There is increased LV wall thickness. There is normal LV segmental wall motion. The left ventricular diastolic function is normal. LVEF is 50%. Right Ventricle The right ventricle is normal size. The right ventricular systolic function is normal. Atria The left atrium size is normal. The right atrium size is normal. There is no Doppler evidence of interatrial shunt. Aortic Valve The aortic valve opens well. There is no aortic valvular stenosis. Trace aortic regurgitation. Mitral Valve The mitral valve is normal in structure. No evidence of mitral valve stenosis. Mild mitral regurgitation. Tricuspid Valve Tricuspid valve is grossly normal in structure and function. Mild tricuspid regurgitation. RVSP is 30-35 mmHg. Pulmonic Valve The pulmonary valve is normal in structure. Trace pulmonic regurgitation. Great Vessels The aortic root is normal in size. The ascending aorta is normal in size. IVC is normal in size and collapses >50% with inspiration. Pericardium There is no pericardial effusion. Conclusion Low-normal LV systolic function (LVEF 50%). Normal RV size and function. Mild MR, mild TR. RVSP 30-35 mmHg. Electronically signed by : Hannah Shipman MD 09/21/2024 13:56:26
--- NOTE | 2024-09-11 07:45 | CA_ITS ---
FINAL REPORT TECHNIQUE: Ultrasound images of the kidneys were obtained. Duplex Doppler of the renal arteries, RAR and RI also obtained. Spectral analysis was performed. CLINICAL HISTORY: HTN, Smoker, Obesity COMPARISON: None FINDINGS: The right kidney measures 9.8 cm in length. It is normal echogenicity. There is no hydronephrosis. PSV is 207 cm/s. RI is 0.67. The renal artery/aortic ratio: 1.8. The left kidney measures 9.8 cm in length. It is normal echogenicity. There is no hydronephrosis. PSA is 302 cm/s. RI is 0.66. The renal artery/aortic ratio: 2.7. . IMPRESSION: Less than 60% stenosis bilaterally. Reviewed, Interpreted and Dictated by Parker Mayers MD Transcribed by Terri Wei Authenticated and [facility]
[2024-09-11 08:02] LABS: Basophils % 0.6 % (0.1-2.0); Eosinophils # 0.1 K/mm3 (0.0-0.4); Eosinophils % 1.6 % (0.1-12.0); Hematocrit 40.5 % (37.0-47.0); Hemoglobin 13.1 g/dL (12.2-16.2); Lymphocytes # 2.2 K/mm3 (0.7-4.5); Lymphocytes % 32.7 % (10-50); Mean Corpuscular HGB Conc 32.3 g/dL (31.8-35.4); Mean Corpuscular Volume 89.6 fl (81-99); Mean Platelet Volume 9.7 fl (7.4-10.4); Monocytes # 0.6 K/mm3 (0.1-1.0); Monocytes % 8.4 % (1.7-9.3); Neutrophils # 3.8 K/mm3 (1.8-7.8); Neutrophils % 56.6 % (37.0-80.0); Platelet Count 326 K/mm3 (142-424); Red Blood Count 4.52 M/mm3 (4.20-5.40); Red Cell Distribution Width 13.1 % (11.5-17.5); White Blood Count 6.8 K/mm3 (4.8-10.8)
[2024-09-11 08:38] LABS: Alanine Aminotransferase 17 U/L (12-78); Alkaline Phosphatase 88 U/L (38-126); Aspartate Amino Transferase 25 U/L (14-36); Bilirubin,Direct 0.1 mg/dl (0.0-0.4); Bilirubin,Indirect 0.3 mg/dL (0.0-0.9); Bilirubin,Total 0.4 mg/dl (0.2-1.3); Bilirubin,Unconjugated 0.3 mg/dL (0.0-1.1); Blood Urea Nitrogen 12 mg/dl (7-17); Calcium 9.8 mg/dl (8.4-10.2); Carbon Dioxide 30 mmol/L (22.0-30.0); Chloride 102 mmol/L (98-107); Chol/HDL Ratio 4.1 (1-3.5); Cholesterol 194 mg/dl (140-200); Estimated Glomerular Filt Rate 86 ml/min (>60); GFR (African American) 104 ML/MIN (>60); Glucose 94 mg/dl (74-100); HDL Cholesterol 47 mg/dl (40-60); Sodium 138 mmol/L (136-145); Total Protein,Serum 6.4 g/dl (6.3-8.2); Triglycerides 119 mg/dl (30-150); VLDL Cholesterol 24 mg/dL (0-40)
--- NOTE | 2024-09-11 08:38 | US_ITS ---
FINAL REPORT CLINICAL HISTORY: I10 - Essential (primary) hypertension COMPARISON: None FINDINGS: RENAL ULTRASOUND Ultrasound images of the kidneys were obtained. Limited images of the liver parenchyma demonstrates normal echogenicity. The right kidney measures 10.4 cm in length. It is normal echogenicity. There is no hydronephrosis. The left kidney measures 9.6 cm in length. It is normal echogenicity. There is no hydronephrosis. IMPRESSION: Normal renal ultrasound. Reviewed, Interpreted and Dictated by Parker Mayers MD Transcribed by Justine Hough Authenticated and [facility]
[2024-09-11 08:50] LABS: Direct LDL Cholesterol 127.81 mg/dL (100-129)
[2024-09-11 08:53] LABS: Free T4 (Free Thyroxine) 0.91 ng/dl (0.78-2.19)
[2024-09-11 09:09] LABS: Thyroid Stimulating Hormone 3.11 uIU/mL (0.465-4.68)
[2024-09-11 09:54] LABS: Anion Gap 9.9 mEq/L (5-15); Potassium 3.9 mmoL/L (3.5-5.1)
== END 2024-09-11 23:59 | disposition home or self-care (01) ==
LOC: RT 07:39
PROVIDERS: PCP Internal Medicine; Visit Provider Physician Assistant
DX: I34.0 Nonrheumatic mitral (valve) insufficiency (principal); I36.1 Nonrheumatic tricuspid (valve) insufficiency; I10 Essential (primary) hypertension; R07.89 Other chest pain; R06.09 Other forms of dyspnea; E78.2 Mixed hyperlipidemia; K21.9 Gastro-esophageal reflux disease without esophagitis; E66.9 Obesity, unspecified; Z68.34 Body mass index [BMI] 34.0-34.9, adult; Z82.49 Family history of ischemic heart disease and other diseases of the circulatory system
CPT/HCPCS: 36415; 76770; 80048; 80061; 80076; 84439; 84443; 85025; 93306; 93976

== ENCOUNTER 2024-09-16 07:36 | Outpatient (CLI) | payer BC, SELFPAY ==
--- NOTE | 2024-09-16 | CA_ITS ---
APPROVED REPORT Exam: Pharmacologic Technologist: Sonal Méndez Ht: 5 ft 7 in Wt: 223 lbs BSA: 2.12 m2 HR: 61 bpm BP: 142/91 mmHg Stress Test Details Test: Lexiscan HR Resting HR: 61 bpm Max Heart Rate (APMHR): 163 bpm Max HR Achieved: 91 bpm Target HR (85% APMHR): 139 bpm % of APMHR: 56 Recovery HR: 91 bpm BP Resting BP: 142.0/91.0 mmHg Max BP: 147.0/91.0 mmHg Recovery BP: 147.0/91.0 mmHg ECG Stress ECG Conclusion Symptoms: - Arrhythmias/Ectopy: - ST-T Changes: Less than [address] depression. Conclusion: EKG portion unremarkable due to Lexiscan infusion. Electronically signed by : Hannah Shipman MD 09/16/2024 12:28:24
--- NOTE | 2024-09-16 07:37 | NM_ITS ---
APPROVED REPORT Exam: Nuclear Stress Test Indication: htn, fm hx, c.p., sob Patient Location: Outpatient Stress Tech: Sonal Méndez NM Tech:Raisa Trotter, ARRT, RT (R)(N) Ht: 5 ft 7 in Wt: 223 lbs Bra Size: 38c HR: 63 bpm BP: 142/91 mmHg BSA: 2.12 m2 TID: 1.24 BMI: 34.9 History: htn, fm hx, c.p., sob Procedure: Patient received 0.4 mg of intravenous Lexiscan, resting heart rate 63 bpm, resting blood pressure 142/91 mmHg, with Lexiscan maximum heart rate achieved was 81 bpm which is % of the maximum predicted heart rate and blood pressure was 147/91 mmHg. With Lexiscan, patient denied any complaint of chest pain. Cardiac Stress and Resting SPECT Images: Cardiac Stress and Resting SPECT images were obtained using technetium 99m Myoview 28.7 mCi stress and 10.80 mCi at rest. Technically difficult study due to significant soft tissue overlap with the cardiac borders. This may affect the diagnostic interpretation of the study findings. Resting and stress imaging in supine and prone positions demonstrate a small sized, moderate, reversible perfusion defect in the LV apex. There is increase in transient ischemic dilatation ratio (TID 1.24), suggestive of possible multivessel disease or balanced ischemia. Gated imaging demonstrates normal global and regional LV systolic function. LVEF is calculated at 55%. Conclusion: Technically difficult study. Small sized, moderate, reversible perfusion defect in the LV apex. Findings are suggestive of reversible ischemia. There is increase in transient ischemic dilatation ratio (TID 1.24), suggestive of possible multivessel disease or balanced ischemia. Gated imaging demonstrates normal global and regional LV systolic function. LVEF is calculated at 55%. Electronically signed by : Hannah Shipman MD 09/16/2024 12:24:42
[2024-09-16] MEDS: REGADENOSON 0.4MG/5ML SYRINGE 0.4 MG IV (10:24)
[2024-09-16] MEDS: SODIUM CHLORIDE 0.9% 10ML SYR (RAD ONLY) 10 ML IV ×2 (10:24)
[2024-09-16] MEDS: ISOTOPE MYOVIEW (PER STUDY) 1 DOSE IV (10:24)
== END 2024-09-16 23:59 | disposition home or self-care (01) ==
PROVIDERS: PCP Internal Medicine; Visit Provider Nurse Practitioner
DX: R06.09 Other forms of dyspnea (principal); Z82.49 Family history of ischemic heart disease and other diseases of the circulatory system
CPT/HCPCS: 78452; 93017; 93018; A9502; J2785

== ENCOUNTER 2024-11-06 09:23 | Day surgery (SDC) | payer BC, SELFPAY ==
[2024-11-04 11:51] VITALS: BMI 34.7
[2024-11-06 10:41] VITALS: BP 122/72; PULSE 71; RESP 18; TEMP 36.7; O2SAT 100
[2024-11-06] MEDS: LACTATED RINGERS 1000ML 1,000 ML 50 ML IV (10:51)
[2024-11-06 12:07] VITALS: O2SAT 100
--- NOTE | 2024-11-06 12:10 | EXP.HP ---
History of Present Illness *Admission Date: 11/06/24 *Reason for visit:: Diarrhea *History of present illness: Mrs. Walters is a 59-year-old female who is here for diagnostic colonoscopy secondary to diarrhea, loose stools, gassiness and bloating. She does get some lower abdominal discomfort. She also had a positive Cologuard. The examination is deemed medically necessary for diagnostic colonoscopy. The patient has been seen, interviewed and examined prior to the procedure by both myself and the anesthesia provider. [facility] Disclaimer: The information contained in this section may have been updated after the patient was seen, as this information can be updated by other users. Medical History (Updated 11/06/24 @ 12:13 by Pilo Dumont II, MD) Abnormal findings on diagnostic imaging of heart and coronary circulation prison use of drug delivery delivered B12 deficiency Surgical History H/O dilation and curettage H/O: hysterectomy Family History Other Coronary artery disease Diabetes Heart attack Kidney disease Thyroid disorder Social History (Updated 11/06/24 @ 10:42 by Sarah Johnson RN) Smoking Status: Current every day smoker tobacco type: e-cigarettes alcohol intake: never substance use type: marijuana current occupational status: unemployed Travel in the last 8 weeks: None household members: spouse and children housing: house current occupational exposures/hazards: No caffeine: Yes Have you lived/traveled outside [place] in past 30 days?: No Contact w/someone who lives/traveled outside [place] past 30 days?: No Exposure to someone with infectious disease in past 14 days?: No Do you have a fever (greater than 100.4 F or 38 C)?: No Have you tested positive for COVID-19: Yes Exposed to someone with COVID-19 in past 14 days?: No Do you have a sore throat?: No Do you have a cough?: No Do you have any weakness?: No Are you experiencing any nausea/vomitting?: No Do you have any diarrhea?: No Are you experiencing any unusual bleeding?: No Do you have any muscle aches/pain?: No Do you have any abdominal pain?: No Are you experiencing loss of taste or smell?: No Other Medical History Have you received the Flu Vaccine for this season: Yes Have you received the Pneumonia Vaccine: Yes Review of Systems Review of Systems Review of systems (narrative): Negative *Cardiovascular Comments: Negative *Gastrointestinal Comments: Negative *Genitourinary Comments: Negative *Musculoskeletal Comments: Negative *Neurologic Comments: Negative Meds Home Medications and Allergies Home Medications ?Medication ?Instructions ?Recorded ?Confirmed ?Type dicyclomine 10 mg capsule 10 mg PO QID PRN abdominal pain 05/21/24 11/06/24 Rx #120 caps ropinirole 2 mg tablet 2 mg PO BID #60 tabs 06/04/24 11/06/24 Rx aspirin 81 mg tablet,delayed 81 mg PO DAILY #30 tabs 09/04/24 11/06/24 Rx release (Adult Aspirin Regimen) metoprolol succinate 25 mg 25 mg PO DAILY #30 tabs 09/04/24 11/06/24 Rx tablet,extended release 24 hr (Toprol XL) valsartan 80 1 tab PO DAILY #30 tabs 09/04/24 11/06/24 Rx mg-hydrochlorothiazide 12.5 mg tablet (Diovan HCT) nitroglycerin 0.4 mg sublingual 0.4 mg sublingual Q5-15M PRN chest 10/02/24 11/06/24 Rx tablet pain #30 tabs rosuvastatin 40 mg tablet (Crestor) 40 mg PO DAILY #30 tabs 10/02/24 11/06/24 Rx hydrocodone 7.5 mg-acetaminophen 1 tab PO QID PRN pain 30 days #120 10/20/24 11/06/24 Rx 325 mg tablet tabs sodium,potassium,mag sulfates 17.5 See Rx Instructions PO .COMPLEX 10/22/24 11/06/24 Rx gram-3.13 gram-1.6 gram oral soln #354 mL (Suprep Bowel Prep Kit) duloxetine 60 mg capsule,delayed 60 mg PO BID 11/06/24 11/06/24 History release zolpidem 5 mg tablet 5 mg PO HS PRN insomnia 11/06/24 11/06/24 History New Prescriptions to Start Prescriptions: Allergies Allergy/AdvReac Type Severity Reaction Status Date / Time bupropion (From Wellbutrin) AdvReac Nightmare Verified 11/06/24 10:36 Exam Data for Last 24 hours Vital signs and Labs for Last 24 Hours: Temp Pulse Resp BP Pulse Ox O2 Del Method O2 Flow Rate 98.1 F 71 18 122/72 100 Nasal Cannula 5 11/06/24 10:41 11/06/24 10:41 11/06/24 10:41 11/06/24 10:41 11/06/24 10:41 11/06/24 12:07 11/06/24 12:07 I & O for Last 24 hours: Intake & Output 11/03/24 11/04/24 11/05/24 11/06/24 23:59 23:59 23:59 23:59 Weight 222 lb *Routine HEENT Exam Head: Present normocephalic Eye: Present EOMI and PERRL ENT: Present mucous membranes moist *Routine Neck Exam Neck: Present supple *Routine Respiratory Exam Respiratory: Present CTA bilaterally *Routine Cardiovascular Exam Cardiovascular: Present RRR *Routine Abdominal Exam Abdominal: Present soft and normoactive bowel sounds; Absent tenderness *Routine Rectal Exam Rectal:: deferred *Routine Genitalia Exam Genitalia:: deferred *Routine Extremities Exam Extremities: Absent cyanosis, clubbing or edema *Routine Skin Exam Skin: Present warm; Absent rash *Routine Neurological Exam Neurological: Present alert and oriented X3 Assessment and Plan *Assessment and plan (1) Diarrhea: Status: Acute Category: Medical Code(s): R19.7 - Diarrhea, unspecified (2) Positive colorectal cancer screening using Cologuard test: Status: Acute Category: Medical Code(s): R19.5 - Other fecal abnormalities Plan A/P: 1. Diarrhea/loose stools with positive Cologuard is the preprocedural diagnosis. The patient will be anesthetized/sedated using MAC sedation. The patient has been seen and examined. Cardiac and lung assessment prior to the examination is stable. Proceed with planned diagnostic colonoscopy
--- NOTE | 2024-11-06 12:14 | P.PCN_ITS ---
[facility] Procedure Note Date: 11/06/24 Time: 12:27 Procedure Note:: Colonoscopy Procedure Report: Colonoscopy with cold biopsies and cold snare polypectomy Endoscopist: Pilo Dumont II, MD Referring physician: Nathan Scales DO Date of Procedure: November 06, 2024 Equipment: Olympus 190 variable stiffness pediatric colonoscope Sedation: MAC sedation Indication: Mrs. Walters is a 59-year-old female with a long history of IBS with diarrhea and has a recently positive Cologuard. She does have 5-10 urgent bowel movements daily with fecal incontinence. She does get some tenderness in the lower abdomen. She reports no rectal bleeding or weight loss. She reports no family history of colon cancer. Her last colonoscopy was more than 10 years ago. Procedure: Prior to the procedure, a history and physical exam was performed, and patient's medications and allergies were reviewed. The risks, benefits and alternatives of the sedation and procedure were discussed with the patient. All questions were answered and informed consent was obtained. The patient was brought to the procedure room. Patient identification and proposed procedure were verified by the physician and the nurse. The patient was placed in a left lateral decubitus position and the scope was passed under direct vision. Throughout the procedure, the patient's blood pressure, pulse, and oxygen saturations were monitored continuously. The colonoscopy was accomplished without difficulty. The patient tolerated the procedure well. Findings: On digital rectal examination there was normal rectal tone. There were no external hemorrhoids. The colonoscope was introduced through the anal canal to the rectum and advanced to the cecum. The ileocecal valve and appendiceal orifice were identified. The scope was advanced a short distance into the ileum which appeared grossly normal. The scope was then withdrawn into the colon. There was a single 8 to 9 mm polyp in the descending colon removed via cold snare polypectomy. The remaining cecum, ascending, transverse, descending, sigmoid and rectum were grossly normal. Random biopsies were taken from the right colon to rule out microscopic colitis. There were no other mucosal abnormalities identified. Upon retroflexion within the rectum there were grade 1-2 internal hemorrhoids. The preparation was excellent throughout with Mcgee Preparation Score of 9. The cecal time was 12 minutes. Impression: 1. Descending colon polyp (8 to 9 mm) Plan: I will follow-up the polyp histology and recommend repeat surveillance colonoscopy again in 5 to 10 years based upon the pathology. I will follow-up the biopsies. If the biopsies are normal, I would consider Viberzi or alosetron.
[2024-11-06 12:31] VITALS: BP 139/74; PULSE 72; RESP 16; TEMP 36.4; O2SAT 98
[2024-11-06 12:41] VITALS: BP 135/84; PULSE 74; RESP 16; O2SAT 98
[2024-11-06 12:49] VITALS: BP 120/82; PULSE 71; RESP 16; O2SAT 98
[2024-11-06 13:00] VITALS: BP 116/87; PULSE 76; RESP 16; O2SAT 98
== END 2024-11-06 13:10 | disposition home or self-care (01) ==
PROVIDERS: PCP Internal Medicine; Visit Provider Internal Medicine Gastroenterology
PROC: 0DJD8ZZ Inspection of Lower Intestinal Tract, Via Natural or Artificial Opening Endoscopic (ICD-10-PCS; CPT 45378; principal; 2024-11-06 11:00)
DX: K63.5 Polyp of colon (principal); K64.8 Other hemorrhoids; R19.7 Diarrhea, unspecified; R19.5 Other fecal abnormalities; R14.0 Abdominal distension (gaseous); K58.0 Irritable bowel syndrome with diarrhea; R15.9 Full incontinence of feces
CPT/HCPCS: 45380; 45385; J7120

== ENCOUNTER 2025-07-05 11:27 | Emergency (ER) | payer MEDICAID, SELFPAY ==
[2025-07-05 11:30] VITALS: BP 152/103; PULSE 78; RESP 24; TEMP 36.7; O2SAT 97; BMI 33.5
[2025-07-05 11:37] VITALS: BP 137/105; PULSE 77; O2SAT 96
--- OUTSIDE RECORDS SUMMARY | 2025-07-05 11:39 | XMS_ITS | Data Portability ---
Author Organization [facility] DOMINIC Slaughter MELVIN CLOSED Address [address] [facility] [address] [place] [address] Care Team Providers Care Supervisor Blasting Name Role Phone OLIVIA VICK Primary Care Provider Assessment No assessment recorded. Plan of Treatment Reminders Order Date Submit Date Provider Last Modified By Organization Details Last Modified Time Details Appointments None recorded. Lab None recorded. Referral None recorded. Procedures None recorded. Surgeries None recorded. Imaging XR, cervical spine, 2 or 3 view 2022 023 [facility], [address] [place], [address], 3 16:40:14 XR, thoracic spine, 2 view 2022 023 [facility], [address] [place], [address], 3 16:40:33 XR, chest, 2 view 2022 023 [email or web address], [address] [place], [address], 3 08:45:41 Medication Orders duloxetine 60 mg capsule,del ayed release 2022 023 [facility] #[id number], [address] [address] [place], [id number], 3 15:16:33 tramadol 50 mg tablet 2022 023 [facility] #, [address] [facility] [address], [place], [id number], 3 15:16:36 pregabalin 150 mg capsule 2022 023 [facility] #, [address] [facility] [address], [place], [id number], 3 15:16:44 ropinirole 3 mg tablet 2022 023 [facility] #, [address] [facility] [address], [place], [id number], 3 15:16:44 potassium chloride ER 10 mEq tablet,exte nded release 2022 023 [facility] #, [address] [facility] [address], [place], [id number], 3 15:16:06 magnesium 400 mg (as magnesium oxide) tablet 2022 023 [facility] #, [address] [facility] [address], [place], [id number], 3 15:16:01 duloxetine 60 mg capsule,del ayed release 2022 023 [facility] #, [address] [facility] [address], [place], [id number], 3 16:04:29 tramadol 50 mg tablet 2022 023 [facility], [address] [facility] [address], [place], [id number], 3 16:04:25 pregabalin 150 mg capsule 2022 023 [facility], [address] [facility] [address], [place], [id number], 3 16:04:24 ropinirole 3 mg tablet 2022 023 [facility] #56481, [address] [facility] [address], [place], [id number], 3 16:04:19 Medrol (Chris) 4 mg tablets in a dose pack 2022 023 [facility] #47054, [address] [facility] [address], [place], [id number], 3 16:07:06 Augmentin 875 mg-125 mg tablet 2022 023 [facility] #39360, [address] [facility] [address], [place], [id number], 3 15:17:01 duloxetine 60 mg capsule,del ayed release 2021 022 [facility] #89437, [address] [facility] [address], [place], [id number], 2 14:35:39 tramadol 50 mg tablet 2021 022 [facility]77, [address] [facility] [address], [place], [id number], 2 14:35:50 pregabalin 150 mg capsule 2021 022 [facility]104, [address] [facility] [address], [place], [id number], 2 14:35:42 ropinirole 3 mg tablet 2021 [facility] #18585, [address] [facility] [address], [place], [id number], 14:35:40 lidocaine 5 % topical patch 2021 [facility] #62549, [address] [facility] [address], [place], [id number], 14:56:20 Depo-Medrol 80 mg/mL suspension for injection 2021 [email or web address] Not available 15:13:05 duloxetine 60 mg capsule,del ayed release 2021 [facility] #19070, [address] [facility] [address], [place], [id number], 14:56:20 tramadol 50 mg tablet 2021 [facility] #55193, [address] [facility] [address], [place], [id number], 14:56:23 pregabalin 150 mg capsule 2021 [facility] #01228, [address] [facility] [address], [place], [id number], 14:56:22 ropinirole 3 mg tablet 2021 [facility] #09914, [address] [facility] [address], [place], [id number], 14:56:19 lidocaine 5 % topical patch 2021 [facility] #75233, [address] [facility] [address], [place], [id number], 2 12:02:14 gabapentin 600 mg tablet [email or web address] [place] [address] [facility] #31740, [address] [facility] [address], [place], [id number], 2 14:32:53 ropinirole 2 mg tablet 2021 [facility] #40901, [address] [facility] [address], [place], [id number], 2 14:57:01 duloxetine 60 mg capsule,del ayed release 2021 [facility] #50772, [address] [facility] [address], [place], [id number], 12:02:18 tramadol 50 mg tablet 2021 [facility] #23859, [address] [facility] [address], [place], [id number], 2 12:02:20 Medrol (Chris) 4 mg tablets in a dose pack [email or web address] [place] [address] [facility] #57986, [address] [address] [address], [place], [id number], 14:33:05 Patient TargetsNo targets recorded. Patient InstructionsNo instructions recorded. Reason for Referral None Reported. Results Created Date Observation Date Name Description Value Unit Range Abnormal Flag Note LastModifiedBy Organization Detail LastModifiedTime 11/22/19 23 11/21/2022 XR, cervi rey spine , 2 or 3 view [place] [facility] [address] [facility] [place] [address] Paticole lerma Name: BIA lerma : [phone] Kayleigh lerma Orderi ng Provid er: JOSE COOK Y EXAM DATE: 2022 EXAM: XR CERVIC AL AP/LAT CLINIC AL INFORM ATION: Neck pain IMAGES PROVID ED: AP, latera l, open mouth and submen anh views of the cervic al spine COMPAR JESSICA: None. FINDIN GS: Loss of normal cervic al lordos is is seen. Verteb ral body height s are normal . There is grade 1 dai listhe sis of C2 over C3. Disc spaces are well-m aintai krystal. No radiog raphic eviden ce of injury is seen. IMPRES ÁNGEL: Minima l degene rative change s of the cervic al spine. Eviden ce of muscle spasm. Interp reted By: Binta Hurtado MD Electr onical ly Signed By: Binta Hurtado MD on 023 4:35 PM [facility] [address] [place] [address], [phone], 12/03/2022 19:14:40 11/22/19 23 11/21/2022 XR, thora cic spine , 2 view [facility] [address] [place] [address] Patien t Name: BIA lerma : [phone] Paticole lerma Orderi ng Provid er: JOSE COOK Y EXAM DATE: 2022 EXAM: XR THORAC IC AP/LAT CLINIC AL INFORM ATION: Back pain. IMAGES PROVID ED: AP, and latera l views of the thorac ic spine. COMPAR JESSICA: None. FINDIN GS: Curvat ure, alignm ent, verteb ral body height s and disc spaces are normal . No radiog raphic eviden ce of injury is noted. IMPRES ÁNGEL: Normal radiog raphs of the thorac ic spine. Interp reted By: Binta Hurtado MD Electr onical ly Signed By: Binta Hurtado MD on 023 4:35 PM [facility] [address] [place], [address], 12/03/2022 19:17:31 Result Notes Documentation Provider Name and Address Organization Details Recorded Time Xr, Cervical Spine, 2 Or 3 View : [place] [address] Patient Name: BIA JAMES Patient : 1965 Patient Ordering Provider: JOSSELYN KLEIN EXAM DATE: 11/21/2022 EXAM: XR CERVICAL AP/LAT CLINICAL INFORMATION: Neck pain IMAGES PROVIDED: AP, lateral, open mouth and submental views of the cervical spine COMPARISON: None. FINDINGS: Loss of normal cervical lordosis is seen. Vertebral body heights are normal. There is grade 1 anterolisthesis of C2 over C3. Disc spaces are well-maintained. No radiographic evidence of injury is seen. IMPRESSION: Minimal degenerative changes of the cervical spine. Evidence of muscle spasm. Interpreted By: Enmanuel Hurtado MD ELYN KLEIN APRN [address] [place] [address], [phone], [facility] 11/28/2022 10:02:34 Xr, Thoracic Spine, 2 View : [place] [id number] Patient Name: BIA JAMES Patient : 1965 Patient Ordering Provider: JOSSELYN KLEIN EXAM DATE: 11/21/2022 EXAM: XR THORACIC AP/LAT CLINICAL INFORMATION: Back pain. IMAGES PROVIDED: AP, and lateral views of the thoracic spine. COMPARISON: None. FINDINGS: Curvature, alignment, vertebral body heights and disc spaces are normal. No radiographic evidence of injury is noted. IMPRESSION: Normal radiographs of the thoracic spine. Interpreted By: Enmanuel Hurtado MD ELYN KLEIN APRN [address] [place] [address], [phone], [facility] 11/28/2022 10:02:34 Problems Name Problem SNOMED Code Status Onset Date Resolution Date Notes Provider Name and Address Organization Details Recorded Time Fibromyal elvira 563366516 Active 2014 From Automated Load;Provi luke: Reese, Eryn;Stat us: Active Not Available [facility] 3 19:07:53 Pain of joint 79835422 Active 2014 From Automated Load;Provi luke: Eryn Reese;Stat us: Active Not Available [facility] 3 19:07:53 C-reactiv e protein outside reference range 146513070 Active 2015 From Automated Load;Provi luke: Josselyn Klein;St atus: Active Not Available [facility] 3 19:07:53 Pain of joint of wrist 006250607 Active 2015 From Automated Load;Provi luke: Josselyn Klein;St atus: Active Not Available [facility] 3 19:07:53 Pain of hip region 59510166 Active 2015 From Automated Load;Provi luke: Josselyn Klein;St atus: Active Not Available [facility] 3 19:07:53 Vitamin D deficienc y 90924639 Active 2015 From Automated Load;Provi luke: Josselyn Klein;St atus: Active Not Available [facility] 3 19:07:53 Problem Notes Documentation Provider Name and Address Organization Details Recorded Time Rheumatology Note : [address] [address]EIEYT, Sharon (id #[id number], : 1965) [address] [address] Encounter Summary - Progress Note Date Printed: 08/22/2022 Documents sent via fax will include the followingmessage: This fax may contain sensitive and confidential personal health information that is being sent for the sole use of the intended recipient. Unintended recipients are directed to securely destroy any materials received. You are hereby notified that the unauthorized disclosure or other unlawful use of this fax or any personal health information is prohibited. To the extent patient information contained in this fax is subject to 42 CFR Part 2, this regulation prohibits unauthorized disclosure of these records. If you received this fax in error, please visit [email or web address] to notify the sender and confirm that the information will be destroyed. If you do not have internet access, please call to notify the sender and confirm that the information will be destroyed. Thank you for your attention and cooperation. [ID:[id number]] Patient Bia James (57yo, F) #[id number] 1965 Patient Demographics: Address [address] [place] [address] Work Phone Encounter Notes: Encounter Reason/Date medication follow up 08/22/2022 - 02:15PM - RHEUMATOLOGY [facility] History of Present Illness f/u with fibromyalgia; doing fair with weather; acting up with weather changes left ankle is better now; without interval infection; no s/e from medications; currently denies bowel or bladder changes, chest pain, shortness of air, rashes, fevers and all others are negative Review of SystemsAdditionally reports:COVID Questionnaire 1. Have you or anyone accompanying you today been diagnosed with CoVid-19 in the past 5 days?? Patient: NO Visitor:____ 2. In the last 3 days have you and/or anyone with you today had COVID symptoms? (cough, fever, muscle aches, loss of taste or smell, vomiting, diarrhea, headache, sore throat, or congestion/runny nose) Patient: NO Visitor:____ 3. Have you and/or anyone accompanying you today been in close contact with a person known to have COVID-19/Coronavirus in the past 5 days? Patient: NO Visitor:____ If answered YES to any of the questions above. Notify provider/service dept. of arrival. Await instructions from provider's office. ROS as noted in the HPI Vitals Ht: 5 ft 7 in08/22/2022 01:48 pm Wt: 188 lbs 6 oz08/22/2022 01:49 pm BMI: 29.512 01:49 pm BP: 110/6008/22/2022 01:51 pm Pulse: 74 bpm08/22/2022 01:51 pm RR: 16110/23/2021 01:51 pm O2Sat: 95%08/22/2022 01:52 pm Results/InterpretationsNone recorded Physical ExamConstitutional:General Appearance:obesity. Level of Distress: NAD. Ambulation: ambulating normally. Mental Status:Mental Status: normal mood and affect and active and alert. Orientation: to time, place, and person. Head:Head: normocephalic and atraumatic. Eyes:Lids and Conjunctivae: no discharge or pallor and non-injected. Sclerae: non-icteric. ENMT:Ears: no lesions on external ear or hearing loss. Nose: no lesions on external nose and nares patent. Lungs:Respiration: no dyspnea. Musculoskeletal System:Joints, Bones, and Muscles: no contractures, malalignment, or bony abnormalities and normal movement of all extremities andtenderness(widespread; typical fibro points). Extremities: no cyanosis, edema, varicosities, or palpable cord. Knees: no ligamentous instability on examination. Neurological Exam:Motor: normal bulk and tone and no tremors, rigidity, or bradykinesia. Gait and Station: normal gait and station. Cranial Nerves: grossly intact. Sensation: grossly intact. Skin:Inspection and palpation: no rash, lesions, ulcer, induration, nodules, jaundice, or abnormal nevi and good turgor. Nails: normal. Procedure DocumentationNone recorded Assessment and Plan1. Fibromyalgia- present 56-year-old female with chronic fibromyalgia syndrome, clinically stable.shContinue with Cymbalta at 120 mg once a day.will restart tramadol 100 mg dailyfurther start on pregabalin 150 mg bid instead of gabapentin which is no longer working for her M79.7: Fibromyalgia duloxetine 60 mg capsule,delayed release - Take 1 capsule(s) twice a day by oral route for 90 days. Qty: (180) capsule Refills: 1 Pharmacy: [facility] #[id number] Note to Pharmacy: dose change tramadol 50 mg tablet - Take 1 tablet(s) twice a day by oral route. Qty: (180) tablet Refills: 0 Pharmacy: [facility] #[id number] pregabalin 150 mg capsule - Take 1 capsule(s) twice a day by oral route. Qty: (180) capsule Refills: 0 Pharmacy: [facility] #[id number] ropinirole 3 mg tablet - Take 1 tablet(s) 3 times a day by oral route. Qty: (270) tablet Refills: 1 [facility] #[id number] 2. Chronic low back pain-with recent injury feeling a pulling feeling and tightness will continue with lidocaine patches prnM54.50: Low back pain, unspecified Return to Office Patient will return to the office as needed Patient Medical History: Allergies List Reviewed Allergies NKDA Medications Reviewed Medications NameDate Source DEPO-MedroL 80 mg/mL suspension for injectionTake 120 mg by injection route.05/23/22 administered JOSSELYN KLEIN APRN DULoxetine 60 mg capsule,delayed releaseTake 1 capsule(s) twice a day by oral route for 90 days.08/22/22 prescribed JOSSELYN KLEIN APRN lidocaine 5 % topical patchAPPLY 1 PATCH BY TRANSDERMAL ROUTE ONCE DAILY (MAY WEAR UP TO 12 HOURS.)05/23/22 prescribed JOSSELYN KLEIN APRN pregabalin 150 mg capsuleTake 1 capsule(s) twice a day by oral route.08/22/22 prescribed JOSSELYN KLEIN APRN rOPINIRole 3 mg tabletTake 1 tablet(s) 3 times a day by oral route.08/22/22 prescribed JOSSELYN KLEIN APRN traMADoL 50 mg tabletTake 1 tablet(s) twice a day by oral route.08/22/22 prescribed JOSSELYN KLEIN APRN Family HistoryReviewed Family History Mother - Arthritis Father - Arthritis Past Medical HistoryReviewed Past Medical History Acid Reflux (GERD):Y Arthritis:Y-fibromyalgia Vaccine HistoryNone recorded Electronically Signed by: JOSSELYN KLEIN APRN, [address] [facility] [place] [facility] 08/22/2022 14:52:59 Rheumatology Note : [address] [address]SWRGE, Sharon (id #[id number], : 1965) [address] [address] Encounter Summary - Progress Note Date Printed: 11/21/2022 Documents sent via fax will include the followingmessage: This fax may contain sensitive and confidential personal health information that is being sent for the sole use of the intended recipient. Unintended recipients are directed to securely destroy any materials received. You are hereby notified that the unauthorized disclosure or other unlawful use of this fax or any personal health information is prohibited. To the extent patient information contained in this fax is subject to 42 CFR Part 2, this regulation prohibits unauthorized disclosure of these records. If you received this fax in error, please visit [email or web address] to notify the sender and confirm that the information will be destroyed. If you do not have internet access, please call to notify the sender and confirm that the information will be destroyed. Thank you for your attention and cooperation. [ID:[id number]] Patient Bia James (57yo, F) #[id number] 1965 Patient Demographics: Address [address] [place] [address] Work Phone Encounter Notes: Encounter Reason/Date f/u on oa and fibromyalgia 11/21/2022 - 03:30PM - RHEUMATOLOGY [facility] History of Present Illness f/u with fibromyalgia; doing fair with weather; acting up with weather changes left ankle is better now; without interval infection; no s/e from medications; currently denies bowel or bladder changes, chest pain, shortness of air, rashes, fevers and all others are negative Review of SystemsAdditionally reports:COVID Questionnaire 1. Have you or anyone accompanying you today been diagnosed with CoVid-19 in the past 5 days?? Patient: NO Visitor:____ 2. In the last 3 days have you and/or anyone with you today had COVID symptoms? (cough, fever, muscle aches, loss of taste or smell, vomiting, diarrhea, headache, sore throat, or congestion/runny nose) Patient: NO Visitor:____ 3. Have you and/or anyone accompanying you today been in close contact with a person known to have COVID-19/Coronavirus in the past 5 days? Patient: NO Visitor:____ If answered YES to any of the questions above. Notify provider/service dept. of arrival. Await instructions from provider's office. ROS as noted in the HPI Vitals Ht: 5 ft 7 in11/21/2022 03:40 pm Wt: 189 lbs11/21/2022 03:41 pm BMI: 29.6011/21/2022 03:41 pm BP: 112/64011/21/2022 03:44 pm Pulse: 70 bpm11/21/2022 03:43 pm O2Sat: 97%11/21/2022 03:43 pm Results/InterpretationsNone recorded Physical ExamConstitutional:General Appearance:obesity. Level of Distress: NAD. Ambulation: ambulating normally. Mental Status:Mental Status: normal mood and affect and active and alert. Orientation: to time, place, and person. Head:Head: normocephalic and atraumatic. Eyes:Lids and Conjunctivae: no discharge or pallor and non-injected. Sclerae: non-icteric. ENMT:Ears: no lesions on external ear or hearing loss. Nose: no lesions on external nose and nares patent. Lungs:Respiration: no dyspnea. Musculoskeletal System:Joints, Bones, and Muscles: no contractures, malalignment, or bony abnormalities and normal movement of all extremities andtenderness(widespread; typical fibro points). Extremities: no cyanosis, edema, varicosities, or palpable cord. Knees: no ligamentous instability on examination. Neurological Exam:Motor: normal bulk and tone and no tremors, rigidity, or bradykinesia. Gait and Station: normal gait and station. Cranial Nerves: grossly intact. Sensation: grossly intact. Skin:Inspection and palpation: no rash, lesions, ulcer, induration, nodules, jaundice, or abnormal nevi and good turgor. Nails: normal. Procedure DocumentationNone recorded Assessment and Plan1. Fibromyalgia- present 57-year-old female with chronic fibromyalgia syndrome, clinically stable. Continue with Cymbalta at 120 mg once a day.will restart tramadol 100 mg dailyshe pregabalin 150 mg bid instead of gabapentin which is no longer working for her M79.7: Fibromyalgia duloxetine 60 mg capsule,delayed release - Take 1 capsule(s) twice a day by oral route for 90 days. Qty: (180) capsule Refills: 1 Pharmacy: [facility] # Note to Pharmacy: dose change tramadol 50 mg tablet - Take 1 tablet(s) twice a day by oral route. Qty: (180) tablet Refills: 0 Pharmacy: [facility] # pregabalin 150 mg capsule - Take 1 capsule(s) twice a day by oral route. Qty: (180) capsule Refills: 0 Pharmacy: [facility] # ropinirole 3 mg tablet - Take 1 tablet(s) 3 times a day by oral route. Qty: (270) tablet Refills: 1 Pharmacy: [facility] # 2. Chronic low back pain-with recent injury feeling a pulling feeling and tightness will continue with lidocaine patches prnM54.50: Low back pain, unspecified 3. Neck painM54.2: Cervicalgia XR CERVICAL AP/LAT Weight (lbs): 189 Place of service: OFFICE Procedure code: 50565 Authorization: [employer] [place] [address] XR THORACIC AP/LAT Weight (lbs): 189 Place of service: OFFICE Procedure code: 01771 Authorization: [employer] [place] [address] 4. UuybmH32.9: Cough, unspecified XR CHEST PA/LAT Weight (lbs): 189 Place of service: OFFICE Procedure code: 10761 Authorization: [employer] [place] [address] Medrol (Chris) 4 mg tablets in a dose pack - Take 1 dose pk(s) by oral route. Qty: (1) 21 tablet dispensing pack Refills: 0 Pharmacy: [facility] # Augmentin 875 mg-125 mg tablet - Take 1 tablet(s) every 12 hours by oral route for 7 days. Qty: (14) tablet Refills: 0 Pharmacy: [facility] # Return to Office JOSSELYN KLEIN APRN for RHEUM RECHECK at RHEUMATOLOGY SB on 02/26/2023 at 02:45 PM Patient Medical History: Allergies List Reviewed Allergies NKDA Medications Reviewed Medications NameDate Source Augmentin 875 mg-125 mg tabletTake 1 tablet(s) every 12 hours by oral route for 7 days.11/21/22 prescribed JOSSELYN KLEIN APRN DEPO-MedroL 80 mg/mL suspension for injectionTake 120 mg by injection route.05/23/22 administered JOSSELYN KLEIN APRN DULoxetine 60 mg capsule,delayed releaseTake 1 capsule(s) twice a day by oral route for 90 days.11/21/22 prescribed JOSSELYN KLEIN APRN lidocaine 5 % topical patchAPPLY 1 PATCH BY TRANSDERMAL ROUTE ONCE DAILY (MAY WEAR UP TO 12 HOURS.)05/23/22 prescribed JOSSELYN KLEIN APRN Medrol (Chris) 4 mg tablets in a dose packTake 1 dose pk(s) by oral route.11/21/22 prescribed JOSSELYN KLEIN APRN pregabalin 150 mg capsuleTake 1 capsule(s) twice a day by oral route.11/21/22 prescribed JOSSELYN KLEIN APRN rOPINIRole 3 mg tabletTake 1 tablet(s) 3 times a day by oral route.11/21/22 prescribed JOSSELYN KLEIN APRN traMADoL 50 mg tabletTake 1 tablet(s) twice a day by oral route.11/21/22 prescribed JOSSELYN KLEIN APRN Family HistoryReviewed Family History Mother - Arthritis Father - Arthritis Past Medical HistoryReviewed Past Medical History Acid Reflux (GERD):Y Arthritis:Y-fibromyalgia Vaccine HistoryNone recorded Electronically Signed by: JOSSELYN KLEIN APRN, N[address] [facility] [place] [facility] 11/23/2022 13:13:35 Progress Note : [address] [address]SMIVN, Sharon (id #[id number], : 1965) [address] [address] Encounter Summary - Progress Note Date Printed: 02/26/2023 Documents sent via fax will include the followingmessage: This fax may contain sensitive and confidential personal health information that is being sent for the sole use of the intended recipient. Unintended recipients are directed to securely destroy any materials received. You are hereby notified that the unauthorized disclosure or other unlawful use of this fax or any personal health information is prohibited. To the extent patient information contained in this fax is subject to 42 CFR Part 2, this regulation prohibits unauthorized disclosure of these records. If you received this fax in error, please visit [email or web address] to notify the sender and confirm that the information will be destroyed. If you do not have internet access, please call to notify the sender and confirm that the information will be destroyed. Thank you for your attention and cooperation. [ID:[id number]] Patient Bia James (57yo, F) #[id number] Patient Demographics: Address [address] [facility] [place] [address] Work Phone Encounter Notes: Encounter Reason/Date f/u on oa and fibromyalgia 02/26/2023 - 02:45PM - RHEUMATOLOGY SB History of Present Illness f/u with fibromyalgia; doing fair with weather; acting up with weather changes having a lot of dale horses; without interval infection; no s/e from medications; currently denies bowel or bladder changes, chest pain, shortness of air, rashes, fevers and all others are negative Review of SystemsROS as noted in the HPI Vitals Ht: 5 ft 7 in02/26/2023 03:03 pm Wt: 180 lbs02/26/2023 03:03 pm BMI: 28.206 03:03 pm BP: 122/7402/26/2023 03:06 pm Pulse: 88 bpm02/26/2023 03:05 pm O2Sat: 97%02/26/2023 03:05 pm Results/InterpretationsNone recorded Physical ExamConstitutional:General Appearance:obesity. Level of Distress: NAD. Ambulation: ambulating normally. Mental Status:Mental Status: normal mood and affect and active and alert. Orientation: to time, place, and person. Head:Head: normocephalic and atraumatic. Eyes:Lids and Conjunctivae: no discharge or pallor and non-injected. Sclerae: non-icteric. ENMT:Ears: no lesions on external ear or hearing loss. Nose: no lesions on external nose and nares patent. Lungs:Respiration: no dyspnea. Musculoskeletal System:Joints, Bones, and Muscles: no contractures, malalignment, or bony abnormalities and normal movement of all extremities andtenderness(widespread; typical fibro points). Extremities: no cyanosis, edema, varicosities, or palpable cord. Knees: no ligamentous instability on examination. Neurological Exam:Motor: normal bulk and tone and no tremors, rigidity, or bradykinesia. Gait and Station: normal gait and station. Cranial Nerves: grossly intact. Sensation: grossly intact. Skin:Inspection and palpation: no rash, lesions, ulcer, induration, nodules, jaundice, or abnormal nevi and good turgor. Nails: normal. Procedure DocumentationNone recorded Assessment and Plan1. Fibromyalgia- present 57-year-old female with chronic fibromyalgia syndrome, clinically stable. Continue with Cymbalta at 120 mg once a day.will restart tramadol 100 mg dailyshe pregabalin 150 mg bid instead of gabapentin which is no longer working for her M79.7: Fibromyalgia duloxetine 60 mg capsule,delayed release - Take 1 capsule(s) twice a day by oral route for 90 days. Qty: (180) capsule Refills: 1 Pharmacy: [facility] #[id number] Note to Pharmacy: dose change tramadol 50 mg tablet - Take 1 tablet(s) twice a day by oral route. Qty: (180) tablet Refills: 0 Pharmacy: [facility] # pregabalin 150 mg capsule - Take 1 capsule(s) twice a day by oral route. Qty: (180) capsule Refills: 0 Pharmacy: [facility] # ropinirole 3 mg tablet - Take 1 tablet(s) 3 times a day by oral route. Qty: (270) tablet Refills: 1 Pharmacy: [facility] #[id number] 2. Chronic low back pain-with recent injury feeling a pulling feeling and tightness will continue with lidocaine patches prnM54.50: Low back pain, unspecified 3. Neck pain-with abnormal lordosis and with ovklyockmW55.2: Cervicalgia 4. Smooth muscle rymssU84.838: Other muscle spasm potassium chloride ER 10 mEq tablet,extended release - Take 1 tablet(s) every day by oral route. Qty: (10) tablet Refills: 0 [facility]: [id number] magnesium 400 mg (as magnesium oxide) tablet - Take 1 tablet(s) every day by oral route for 10 days. Qty: (10) tablet Refills: 0 Pharmacy: [facility] #[id number] Return to Office Patient will return to the office as needed Patient Medical History: Allergies List Reviewed Allergies NKDA Medications Reviewed Medications NameDate Source DEPO-MedroL 80 mg/mL suspension for injectionTake 120 mg by injection route.05/23/22 administered JOSSELYN KLEIN APRN diazePAM 5 mg tabletTake 1 tablet(s) 3 times a day by oral route.02/26/23 entered Samreen Bae DULoxetine 60 mg capsule,delayed releaseTake 1 capsule(s) twice a day by oral route for 90 days.02/26/23 prescribed JOSSELYN KLEIN APRN lidocaine 5 % topical patchAPPLY 1 PATCH BY TRANSDERMAL ROUTE ONCE DAILY (MAY WEAR UP TO 12 HOURS.)05/23/22 prescribed JOSSELYN KLEIN APRN magnesium 400 mg (as magnesium oxide) tabletTake 1 tablet(s) every day by oral route for 10 days.02/26/23 prescribed JOSSELYN KLEIN APRN Medrol (Chris) 4 mg tablets in a dose packTake 1 dose pk(s) by oral route.11/21/22 prescribed JOSSELYN KLEIN APRN potassium chloride ER 10 mEq tablet,extended releaseTake 1 tablet(s) every day by oral route.02/26/23 prescribed JOSSELYN KLEIN APRN pregabalin 150 mg capsuleTake 1 capsule(s) twice a day by oral route.02/26/23 prescribed JOSSELYN KLEIN APRN rOPINIRole 3 mg tabletTake 1 tablet(s) 3 times a day by oral route.02/26/23 prescribed JOSSELYN KLEIN APRN traMADoL 50 mg tabletTake 1 tablet(s) twice a day by oral route.02/26/23 prescribed JOSSELYN KLEIN APRN Family HistoryReviewed Family History Mother - Arthritis Father - Arthritis Past Medical HistoryReviewed Past Medical History Acid Reflux (GERD):Y Arthritis:Y-fibromyalgia Vaccine HistoryNone recorded Electronically Signed by: JOSSELYN KLEIN APRN, [facility] Samreen Bae [facility] 02/27/2023 07:59:43 Procedures Surgical History Date Name Laterality Status Provider Name and Address Organization Details Recorded Time Toucher Up Surgery completed [facility] 04/25/2017 11:24:50 delivery completed [facility] 04/25/2017 11:24:55 Imaging Results None recorded. Procedure Notes None recorded. Medical Equipment None Reported. Allergies No known drug allergies Medications Name Sig Start Date Stop Date Status Note LastModified by Organization Details LastModified Time cyclobenz aprine 10 mg tablet TAKE 1 TABLET BY MOUTH ONCE DAILY 1 TO 2 HOURS BEFORE BEDTIME 12/23 completed Not Available Not Available Not Available Augmentin 875 mg-125 mg tablet Take 1 tablet every 12 hours by oral route for 7 days. 02/26 completed Not Available Not Available Not Available gabapenti n 600 mg tablet take one in the morning; one in the afternoo n and 2 at bedtime 05/23 completed Not Available Not Available Not Available ropinirol e 1 mg tablet Take 1 tablet 3 times a day by oral route. 09/12 completed Not Available Not Available Not Available ibuprofen 800 mg tablet take one po tid 12/23 completed Not Available Not Available Not Available diclofena c ER 100 mg tablet,ex tended release 24 hr Two times a day 01/22 completed Duration : 30 days;Newton quency: bid;Medi cation Descript ion: diclofen ac; Dosage:1 ; Route:or al; refills: 3; Quantity :60 tablet, extended release Not Available Not Available Not Available hydrocodo ne 5 mg-acetam inophen 325 mg tablet 06/28 completed Not Available Not Available Not Available Medrol (Chris) 4 mg tablets in a dose pack Take 1 dose pk by oral route. 2022 active Not Available Not Available Not Avai lable ropinirol e 3 mg tablet Take 1 tablet 3 times a day by oral route. 2022 active Not Available Not Available Not Avai lable prednison e 5 mg tablet Daily 01/22 completed Duration : 30 days;Ins truction s: take 3 tabs daily for 1 week; 2 tabs daily for 1 week then 1 tab daily for 1 week --f/u in 1 month;Fr equency: daily;Me dication Descript ion: predniso ne; Dosage:a s directed ; Route:or al; refills: 1; Quantity :42 tablet Not Available Not Available Not Available potassium chloride ER 10 mEq tablet,ex tended release Take 1 tablet every day by oral route. 2022 active Not Available Not Available Not Avai lable omeprazol e 40 mg capsule,d elayed release Take 1 capsule every day by oral route. 12/24 completed Not Available Not Available Not Available tramadol 50 mg tablet Take 1 tablet twice a day by oral route. 2022 active Not Available Not Available Not Avai lable amitripty line 50 mg tablet As Directed 01/22 completed Duration : 30 days;Ins truction s: Take 1-2 hours before bedtime; Frequenc y: as direct.; Medicati on Descript ion: amitript yline; Dosage:1 ; Route:or al; refills: 3; Quantity :30 tablet Not Available Not Available Not Available Depo-Medr ol 80 mg/mL suspensio n for injection Take 120 mg by injectio n route. 2021 active Not Available Not Available Not Avai lable ropinirol e 2 mg tablet Take 1 tablet 3 times a day by oral route. 05/23 completed Not Available Not Available Not Available buspirone 10 mg tablet Take by oral route. 01/21 completed Not Available Not Available Not Available lidocaine 5 % topical patch APPLY 1 PATCH BY TRANSDER MAL ROUTE ONCE DAILY (MAY WEAR UP TO 12 HOURS.) 2021 active Not Available Not Available Not Avai lable Wellbutri n 75 mg tablet Take 1 tablet 3 times a day by oral route. 04/25 completed Not Available Not Available Not Available diclofena c sodium 75 mg tablet,de layed release Take 1 tablet twice a day by oral route. 01/21 completed Not Available Not Available Not Available Neurontin 400 mg capsule Take 1 capsule 3 times a day by oral route for 30 days. 09/12 completed Duration : 30 days;Newton quency: tid;Medi cation Descript ion: gabapent in; Dosage:1 ; Route:or al; refills: 3; Quantity :90 capsule Not Available Not Available Not Available hydroxyzi ne HCl 25 mg tablet Take 1 tablet every day by oral route. 04/22 completed Not Available Not Available Not Available Vitamin D2 1,250 mcg (50,000 unit) capsule Every week 01/22 completed Duration : 90 days;Newton quency: Every week;Med ication Descript ion: ergocalc iferol; Dosage:1 ; Route:or al; refills: 3; Quantity :12 capsule Not Available Not Available Not Available diazepam 5 mg tablet Take 1 tablet 3 times a day by oral route. active Not Available Not Available No t Available Skelaxin 800 mg tablet Two times a day 01/22 completed Duration : 30 days;Newton quency: bid;Medi cation Descript ion: metaxalo ne; Dosage:1 ; Route:or al; refills: 3; Quantity :60 tablet Not Available Not Available Not Available duloxetin e 60 mg capsule,d elayed release Take 1 capsule twice a day by oral route for 90 days. 2022 active Not Available Not Available Not Avai lable Cymbalta 30 mg capsule,d elayed release Daily 01/22 completed Duration : 30 days;Ins truction s: take 1 tab daily for 1-2 weeks, if tolerate d then increase to 2 tabs daily;Fr equency: daily;Me dication Descript ion: duloxeti ne; Dosage:1 ; Route:or al; refills: 3; Quantity :60 delayed release capsule Not Available Not Available Not Available pregabali n 150 mg capsule Take 1 capsule twice a day by oral route. 2022 active Not Available Not Available Not Avai lable Vitamin B-12 01/22 completed Duration : 10 days;Med ication Descript ion: cyanocob alamin; Route:or al; refills: 0; Quantity :30 Not Available Not Available Not Available omeprazol e 01/22 completed Medicati on Descript ion: omeprazo le; refills: 0 Not Available Not Available Not Available gabapenti n 01/22 completed Not Available Not Available Not Available Vimovo 500 mg-20 mg tablet,im mediate and delay release Two times a day 01/22 completed Duration : 30 days;Newton quency: bid;Medi cation Descript ion: esomepra zole-nap roxen; Dosage:1 ; Route:or al; refills: 3; Quantity :60 delayed release tablet Not Available Not Available Not Available magnesium 400 mg (as magnesium oxide) tablet Take 1 tablet every day by oral route for 10 days. 2022 active Not Available Not Available Not Avai lable Vitals Date Recorded Body height Body mass index (BMI) Body weight Heart rate Oxygen saturation Oxygen saturation in Arterial blood by Pulse oximetry Systolic And Diastolic Provider Name and Address Organization Details Last Updated DateTime 3 170.18 cm 29.6 kg/m2 27339.9 6 g 70 /min 97 % 97 % 112/64 mm[Hg] Samreen Bae [facility] 3 15:44:32 Date Recorded Body height Body mass index (BMI) Body weight Respiratory rate Heart rate Systolic And Diastolic Provider Name and Address Organization Details Last Updated DateTime 2 170.18 cm 31 kg/m2 61824.2 9 g 16 /min 67 /min 114/76 mm[Hg] Wisam linares [facility] 2 11:49:28 Date Recorded Body height Body mass index (BMI) Body weight Heart rate Oxygen saturation Oxygen saturation in Arterial blood by Pulse oximetry Systolic And Diastolic Provider Name and Address Organization Details Last Updated DateTime 3 170.18 cm 28.2 kg/m2 51109.6 3 g 88 /min 97 % 97 % 122/74 mm[Hg] Samreen Bae [facility] 3 15:06:24 Date Recorded Body height Body mass index (BMI) Body weight Heart rate Systolic And Diastolic Provider Name and Address Organization Details Last Updated DateTime 05/23/2022 170.18 cm 29.1 kg/m2 04349.18 g 76 /min 118/78 mm[Hg] Samreen Bae [facility] 05/23/2022 14:35:29 Date Recorded Body height Body mass index (BMI) Body weight Heart rate Respiratory rate Oxygen saturation Oxygen saturation in Arterial blood by Pulse oximetry Systolic And Diastolic Provider Name and Address Organization Details Last Updated DateTime 2 170.18 cm 29.5 kg/m2 33581.4 7 g 74 /min 16 /min 95 % 95 % 110/60 mm[Hg] Fatmata Choichacorta [facility] 2 13:51:37 Social History Question Answer Notes LastModified by Organizat ion Details LastModified Time Tobacco Smoking Status [facility] 14:09:40 Accident Related Injury Yes [email or web address] Information not available 07/14/2020 What Is Your Level Of Caffeine Consumption? Moderate Soda Daily [email or web address] Information not available 07/14/2020 How Much Tobacco Do You Chew? None [email or web address] Information not available 12/24/2018 Which Of Your Hands Is Dominant? Right [email or web address] Information not available 07/14/2020 Rate The Severity Of Your Symptoms: (0-10 With 0=none And 10=worst Possible) 6 [email or web address] Information not available 07/14/2020 Date Of Injury: 06/20/2020 [email or web address] Informati on not available 07/14/2020 Have You Been Treated For This Problem Before? No Xrays Only [email or web address] Information not available 07/14/2020 How Long Have You Had These Symptoms? 06/20/2020 [email or web address] Information not available 07/14/2020 Will This Be Filed As Workers' Compensation? No [email or web address] Information not available 07/14/2020 Marital Status Informatio n not available 07/14/2020 What Was The Date Of Your Most Recent Tobacco Screening? 02/26/2023 [email or web address] Information not available 02/26/2023 How Much Tobacco Do You Smoke? No [email or web address] Information not available 12/24/2018 Has Tobacco Cessation Counseling Been Provided? No [email or web address] Information not available 12/24/2018 How Many Years Have You Smoked Tobacco? 0 [email or web address] Information not available 12/24/2018 Have You Recently Traveled Abroad? No [email or web address] Information not available 05/23/2022 Work Related Injury? No [email or web address] Information not available 07/14/2020 Sex: Unknown Functional Status Question Answer Note LastModified by Organizat ion Details LastModified Time Do you use any illicit or recreational drugs? Yes [email or web address] Information not available 05/23/2022 What is your level of alcohol consumption? Moderate [email or web address] Information not available 02/26/2023 Do you or have you ever used smokeless tobacco? Never used smokeless tobacco [email or web address] Information not available 07/14/2020 Are you currently employed? No [email or web address] Information not available 07/14/2020 What is your occupation? retired. [email or web address] Information not available 07/14/2020 Do you or have you ever used e-cigarettes or vape? Current user of electronic cigarettes [email or web address] Information not available 09/25/2019 Mental Status None recorded. Family History Relationship Description Onset Age of this Age Resolved Age Notes LastModified by Organization Details LastModified Time Mother Arthritis [email or web address] Not availa ble 04/25/2017 11:24:25 Father Arthritis [email or web address] Not availa ble 04/25/2017 11:24:32 Medical History Condition Response Other Y Gout N Kidney Stones N Emphysema N COPD N Pneumonia N Arthritis Y Blood Clot N Acid Reflux (GERD) Y Cancer N Stroke N Rheumatoid Arthritis N Kidney Disease N Heart Conditions N Migraines N Skin Problems N Rheumatic Fever N Bleeding Disorder N Tuberculosis N Genetic Disorder N AIDS/HIV N Asthma N Included as Review of Systems Y Anxiety/Depression N Thyroid Disease N Hernia N Glaucoma N Anesthesia Complications N Blood Thinners N Alcohol Overuse/Alcohol Abuse N High Cholesterol N Liver Disease N Allergies/Hayfever N Immune System Disorder N Heart Attack ([place]) N Mental Illness N Neurological Problems N Diabetes N Seizures/Epilepsy N Sleep Apnea N Heart Disease N Hypertension N Osteoporosis N Gynecological HistoryNo gynecological history recorded. Obstetrics History GPAL:G 0 P 0 0 0 0 Past Encounters Encounter ID Performer Location Encounter Start Date Encounter Closed Date Diagnosis/Indication Diagnosis SNOMED-CT Code Diagnosis ICD10 Code Diagnosis IMO Codes Diagnosis Note [id number] JOSSELYNCHADW[place] [address] [place] [address] 1 01/22/2017 13:45:17 01/22/2017 15:11:38 Fibromyalgia 155789104 M79.7 labs are goodnormal systemic examinatio nrefills today Vitamin D deficiency 347 03758 E55.9 [id number] JOSSELYN KLEIN MORPHOLOGY TEACHER [facility] [address] [place] [address] 1 04/25/2017 10:33:12 04/25/2017 13:12:54 Fibromyalgia 917500677 M79.7 labs are goodnormal systemic examinatio nrefills today Long-term drug therapy 670437934 Z79.154 [id number] JOSSELYN KLEIN APRN [facility] [address] [place] [address] 1 07/23/2017 11:22:34 07/24/2017 11:57:48 Fibromyalgia 003164317 M79.7 stable systemic examinatio nwithout interval infections no major flaressome mild flares with weather changeslas t labs were good; none needed todayrefil ls today [id number] JOSSELYN KLEIN APRN [facility] [address] [place] [address] 1 11/01/2017 09:03:40 11/01/2017 10:01:09 Fibromyalgia 143871784 M79.7 stable systemic examinatio nwithout interval infections no major flaressome mild flares with weather changeslas t labs were good; none needed todayrefil ls today [id number] JOSSELYN KLEIN APRN [facility] [address] [place] [address] 1 01/21/2018 13:11:47 01/21/2018 13:59:28 Fibromyalgia 987196923 M79.7 stable systemic examinatio nwithout interval infections no major flaressome mild flares with weather changes with joint painprefer s ibuprofen instead of diclofenac will refill todaylast labs were good; none needed today [id number] JOSSELYN KLEIN APRN [facility] [address] [place] [address] 04/22/2018 10:53:15 04/22/2018 12:03:46 Fibromyalgia 484583152 M79.7 stable systemic examinatio nwithout interval infections flared with weather changes with joint painprefer s ibuprofen instead of diclofenac will refill todaylabs today Fatigue 98125404 R53.83 worsening with increased pain and tenderness will obtain further labs today Dizziness 705736850 R42 increased with rising from a seated position too fast some dizziness with walking; worsening without recent change in the neurontin Low back pain 206103435 M54.5 limited rom pain in the low back recurring with burning and tingling radiating to the bilateral feet Increased frequency of urination 728537969 R35.0 will assess further today with back pain, tenderness and frequency [id number] FROY BRYANT MD RHEUMATOL [address] [address] 07/22/2018 11:21:50 07/23/2018 07:41:24 Fibromyalgia 144348966 M79.7 she has features of chronic fibromyalg ia syndrome which seems to be under good control. No evidence of an associated inflammato ry joint disease noted. I suggested her to continue with gabapentin 400 mg 3 times a day along with duloxetine at 60 mg once a day. I encouraged her to participat e in a regular walks. Further I suggested her to go on low sugar and low salt diet. Generalize d osteoarthritis 056703323 M15.9 she has chronic degenerati ve joint disease. However no evidence of inflammato ry joint disease noted. No evidence of joint effusions or synovitis noted. Decide weight loss and regular exercises, she can continue with the ibuprofen 800 mg up to 3 times a day only as needed with food. Refills are given today. [id number] JOSSELYN KLEIN APRN RHEUMATOL [facility] [address] [place] [address] 12/24/2018 13:29:57 12/25/2018 10:59:10 Fibromyalgia 168915407 M79.7 she has features of chronic fibromyalg ia syndrome which seems to be under good control. No evidence of an associated inflammato ry joint disease noted. I suggested her to continue with gabapentin 400 mg 3 times a day along with duloxetine at 60 mg once a day. Generalize d osteoarthritis 933440075 M15.9 she has chronic degenerati ve joint disease. However no evidence of inflammato ry joint disease noted. No evidence of joint effusions or synovitis noted. Decide weight loss and regular exercises, she can continue with the ibuprofen 800 mg up to 3 times a day only as needed with food. Refills are given today. [id number] JOSSELYN KLEIN APRN RHEUMATOL [facility] [address] [place] [address] 06/26/2019 12:57:05 06/26/2019 13:45:04 Fibromyalgia 643488958 M79.7 she has features of chronic fibromyalg ia syndrome which seems to be under good control. No evidence of an associated inflammato ry joint disease noted. I suggested her to continue with gabapentin 400 mg 3 times a day along with duloxetine at 60 mg once a day. Generalize d osteoarthritis 143116508 M15.9 she has chronic degenerati ve joint disease. However no evidence of inflammato ry joint disease noted. No evidence of joint effusions or synovitis noted. Decide weight loss and regular exercises, she can continue with the ibuprofen 800 mg up to 3 times a day only as needed with food. Refills are given today. Pain of bi lateral hip joints [id number] 4922337 M25.551 M25.760 [id number] JOSSELYN KLEIN APRN [facility] [address] [address] 09/12/2019 08:19:16 09/12/2019 08:51:18 Fibromyalgia 022192656 M79.7 she has features of chronic fibromyalg ia syndrome which seems to be under good control. No evidence of an associated inflammato ry joint disease noted. I suggested her to continue with gabapentin 400 mg 3 times a day along with duloxetine at 60 mg once a day. Generalize d osteoarthritis 350589181 M15.9 she has chronic degenerati ve joint disease. However no evidence of inflammato ry joint disease noted. No evidence of joint effusions or synovitis noted. Decide weight loss and regular exercises, she can continue with the ibuprofen 800 mg up to 3 times a day only as needed with food. Refills are given today. tramadol is not working at all so we will try to see if a lead painter can get her on a treatment regimen that can help her leg pain Chronic back pain 760167 002 M54.9 [id number] TOMMY ROSENBERG MD [facility] CLOSED [address] [place] [id number] 09/25/2019 14:05:05 09/29/2019 15:24:18 Long-term drug therapy 319352229 Z79.899 Chronic low back pain 27 1568645 M54.5 Pain of mu ltiple joints 32710526 M25.50 Osteoarthr itis of multiple joints 236094960 M15.9 Fibromyalgia 623099726 M 79.7 Lumbar fac et joint pain 839185000 M54.5 [id number] TOMMY ROSENBERG MD PAIN MEDICINE CLOSED [address] [place] [id number] 10/01/2019 14:13:15 10/02/2019 09:26:30 Long-term drug therapy 235699418 Z79.899 Chronic low back pain 27 0128757 M54.5 Pain of mu ltiple joints 87665705 M25.50 Osteoarthr itis of multiple joints 944297931 M15.9 Fibromyalgia 193449130 M 79.7 Lumbar fac et joint pain 304058995 M54.5 [id number] TOMMY ROSENBERG MD PAIN MEDICINE CLOSED [address] [place] [address] 1 10/23/2019 09:43:31 10/23/2019 10:13:18 Long-term drug therapy [id number] Z79.899 Chronic low back pain 27 7540821 M54.5 Pain of mu ltiple joints 52035340 M25.50 Osteoarthr itis of multiple joints 291000517 M15.9 Fibromyalgia 865605104 M 79.7 Lumbar fac et joint pain 191955994 M54.5 [id number] TOMMY ROSENBERG MD PAIN MEDICINE CLOSED [address] [place] [address] 1 12/22/2019 13:27:14 12/23/2019 12:21:59 Long-term drug therapy 261480236 Z79.899 Chronic low back pain 27 8086386 M54.5 Pain of mu ltiple joints 83285304 M25.50 Osteoarthr itis of multiple joints 507802357 M15.9 Fibromyalgia 716518262 M 79.7 Lumbar fac et joint pain 423629509 M54.5 [id number] FR[place] [address] 12/24/2019 07:59:07 12/24/2019 09:54:06 Fibromyalgia 468729206 M79.7 present 4-year-old female with chronic fibromyalg ia syndrome, clinically stable. She is now followed by Dr. Rosenberg for pain management . Continue with Cymbalta at 120 mg once a day. Of note she has stopped the tramadol as well as cyclobenza mendoza. She is on low-dose hydrocodon e 2.5 mg a day along with gabapentin which are prescribed by Dr. Rosenberg. follow-up in 6 months Generalize d osteoarthritis 790081806 M15.9 generalize d osteoarthr itis and mechanical back pain.chron ic and clinically stable on long-term pain management . [id number] TOMMY ROSENBERG MD PAIN MEDICINE [place] [address] 1 02/12/2020 11:11:40 02/12/2020 13:41:21 Long-term drug therapy 292254690 Z79.899 Chronic low back pain 27 6052545 M54.5 Pain of mu ltiple joints 06815654 M25.50 Osteoarthr itis of multiple joints 150632342 M15.9 Fibromyalgia 846144886 M 79.7 Lumbar fac et joint pain 203263714 M54.5 [id number] JOSSELYN KLEIN APRN RHEUMATOL [place] [address] 1 07/08/2020 15:11:49 07/08/2020 15:59:31 Fibromyalgia 292472861 M79.7 present 4-year-old female with chronic fibromyalg ia syndrome, clinically stable. She is now followed by Dr. Rosenberg for pain management . Continue with Cymbalta at 120 mg once a day. She is on low-dose hydrocodon e 2.5 mg a day along with gabapentin which are prescribed by Dr. Rosenberg. follow-up in 6 months Chronic low back pain 27 7700922 M54.5 Pain of le ft ankle joint [id number] 8520910 M25.572 fell on 06/20/2020 and had a lot of stiffness, swelling and bruising; left ankle is 3 x the size of the right ankle still; painful to touch, withdraws to pain unable to tolerate [id number] [facility] CL[facility] [address] [place] [address] 07/14/2020 14:10:15 07/14/2020 14:50:43 Sprain of left ankle [id number] 5924367 S93.492A Body mass index 30+ - obesity 449262157 Z68.34 [id number] TOMMY ROSENBERG MD PAIN MEDICINE CLOSED [address] [place] [address] 1 09/07/2020 10:07:25 09/07/2020 10:52:48 Long-term drug therapy 413654511 Z79.899 Chronic low back pain 27 1804863 M54.5 Pain of mu ltiple joints 01415626 M25.50 Osteoarthr itis of multiple joints 872699816 M15.9 Fibromyalgia 370092065 M 79.7 Lumbar fac et joint pain 248644649 M54.5 [id number] TOMMY ROSENBERG MD PAIN MEDICINE CLOSED [address] [place] [address] 1 11/10/2020 14:56:45 11/10/2020 15:57:04 Long-term drug therapy 182874791 Z79.899 Chronic low back pain 27 1666447 M54.5 Pain of mu ltiple joints 60240034 M25.50 Osteoarthr itis of multiple joints 501960219 M15.9 Fibromyalgia 598236280 M 79.7 Lumbar fac et joint pain 612081284 M54.5 [id number] TOMMY ROSENBERG MD PAIN MEDICINE CLOSED [address] [place] [address] 1 02/10/2021 09:48:45 02/10/2021 10:40:20 Long-term drug therapy 140768300 Z79.899 Chronic low back pain 27 6697796 M54.5 Pain of mu ltiple joints 48982170 M25.50 Osteoarthr itis of multiple joints 987771707 M15.9 Fibromyalgia 528599012 M 79.7 Lumbar fac et joint pain 192644199 M54.5 [id number] JOSSELYN KLEIN APRN RHEUMATOL [facility] [address] [place] [address] 1 06/28/2021 09:56:13 06/28/2021 10:45:02 Fibromyalgia 815459897 M79.7 present 4-year-old female with chronic fibromyalg ia syndrome, clinically stable. She is now followed by Dr. Rosenberg for pain management . Continue with Cymbalta at 120 mg once a day. She is on low-dose hydrocodon e 2.5 mg a day along with gabapentin which are prescribed by Dr. Rosenberg. follow-up in 6 months Pain of le ft ankle joint 3828992019 7654574 M25.572 fell on 06/20/2020 and had a lot of stiffness, swelling and bruising; left ankle is 3 x the size of the right ankle still; painful to touch, withdraws to painimprov ed overallxra ys were stable Chronic low back pain 27 4835031 M54.50 [id number] JOSSELYN KLEIN APRN RHEUMATOL OGY [facility] [address] [place] [address] 12/20/2021 11:04:29 12/20/2021 15:33:24 Fibromyalgia 463567016 M79.7 present 4-year-old female with chronic fibromyalg ia syndrome, clinically stable. She is now followed by Dr. Rosenberg for pain management . Continue with Cymbalta at 120 mg once a day. She is on low-dose hydrocodon e 2.5 mg a day along with gabapentin which are prescribed by Dr. Rosenberg. follow-up in 6 months Chronic low back pain 27 8174793 M54.50 Low back pain 234722895 M54.50 [id number] JOSSELYN KLEIN APRN RHEUMATOL OGY [address] [place] [address] 05/23/2022 14:03:21 05/29/2022 11:55:46 Fibromyalgia 875064431 M79.7 present 56-year-ol d female with chronic fibromyalg ia syndrome, clinically stable.shC ontinue with Cymbalta at 120 mg once a day.will restart tramadol 100 mg dailyfurth er start on pregabalin 150 mg bid instead of gabapentin which is no longer working for her Chronic low back pain 27 0444199 M54.50 with recent injury feeling a pulling feeling and tightnessw ill provide with 120 mg im depo medrol injection todaywill continue with lidocaine patches [id number] JOSSELYN KLEIN APRN RHEUMATOL OGY [address] [place] [id number] 1 08/22/2022 13:27:22 08/24/2022 14:03:53 Fibromyalgia 557440034 M79.7 present 56-year-ol d female with chronic fibromyalg ia syndrome, clinically stable.shC ontinue with Cymbalta at 120 mg once a day.will restart tramadol 100 mg dailyfurth er start on pregabalin 150 mg bid instead of gabapentin which is no longer working for her Chronic low back pain 27 5918035 M54.50 with recent injury feeling a pulling feeling and tightness will continue with lidocaine patches prn [id number] J[place] [address] [place], [place] [address] 11/21/2022 15:37:05 11/24/2022 10:49:57 Fibromyalgia 609286854 M79.7 present 57-year-ol d female with chronic fibromyalg ia syndrome, clinically stable. Continue with Cymbalta at 120 mg once a day.will restart tramadol 100 mg dailyshe pregabalin 150 mg bid instead of gabapentin which is no longer working for her Chronic low back pain 27 6850797 M54.50 with recent injury feeling a pulling feeling and tightness will continue with lidocaine patches prn Neck pain 77661401 M54.2 Cough 33093075 R05.9 [id number] JOS[place] [address] [place], [place] [address] 02/26/2023 14:58:11 02/27/2023 08:01:40 Fibromyalgia 633422216 M79.7 present 57-year-ol d female with chronic fibromyalg ia syndrome, clinically stable. Continue with Cymbalta at 120 mg once a day.will restart tramadol 100 mg dailyshe pregabalin 150 mg bid instead of gabapentin which is no longer working for her Chronic low back pain 27 9891111 M54.50 with recent injury feeling a pulling feeling and tightness will continue with lidocaine patches prn Neck pain 40324673 M54.2 with abnormal lordosis and with scoliosis Smooth muscle spasm 1285 56147 M62.838 Health Concerns Section Related Observation LastModified by Organization Detai ls LastModified Time None Recorded Concern Status LastModified by Organization Details LastModified Time None Recorded Advance Directives Directive None Recorded Payers Insurance Date Sequence Insurance Name Policy Number Policy Marquez Covered Member ID Marquez Member ID Guarantor Name 06/19/2025 1 [employer] [id number] Iva James [id number] Bia James 06/19/2025 1 [facility] (MEDICAID REPLACEMENT - HMO) Bia James [id number] Bia James 06/19/2025 1 [facility] (PPO) [id number] Iva James [id number] Bia James Notes Date Note Type Note Provider Name and Address Organization Details Recorded Time 05/23/2022 text/html ROS as noted in the HPI f/u with fibromyalgia; doing fair with weather; acting up with weather changes left ankle is better now; without interval infection; no s/e from medications; currently denies bowel or bladder changes, chest pain, shortness of air, rashes, fevers and all others are negative JOSSELYN KLEIN APRN [address] [place], [address], [facility] 05/23/2022 14:59:42 08/22/2022 text/html ROS as noted in the HPI f/u with fibromyalgia; doing fair with weather; acting up with weather changes left ankle is better now; without interval infection; no s/e from medications; currently denies bowel or bladder changes, chest pain, shortness of air, rashes, fevers and all others are negative JOSSELYN KLEIN APRN [address] [place], [address], [facility] 08/22/2022 14:36:07 11/21/2022 text/html ROS as noted in the HPI f/u with fibromyalgia; doing fair with weather; acting up with weather changes left ankle is better now; without interval infection; no s/e from medications; currently denies bowel or bladder changes, chest pain, shortness of air, rashes, fevers and all others are negative JOSSELYN KLEIN APRN [address] [place], [address], [facility] 11/21/2022 16:07:23 02/26/2023 text/html ROS as noted in the HPI f/u with fibromyalgia; doing fair with weather; acting up with weather changes having a lot of dale horses; without interval infection; no s/e from medications; currently denies bowel or bladder changes, chest pain, shortness of air, rashes, fevers and all others are negative JOSSELYN KLEIN APRN [address] [place], [address], [facility] 02/26/2023 15:17:56 OBGyn Episode No OBEpisode recorded.
--- OUTSIDE RECORDS SUMMARY | 2025-07-05 11:39 | XMS_ITS | Clinical Summary ---
Author Organization Healthcare Address [address] [place] [address] Care Team Providers Care Oil Burner Installer Name Role Phone Trinidad Johnson LUMBER CHECKER Primary Care Provider [phone] Family History Medical History Relation Name Comments Depression Father Diabetes Father Hypertension Father Other cancer Father Diabetes Mother Other cancer Mother Relation Name Status Comments Father Mother Social History Tobacco Use Types Packs/Day Years Used Date Smoking Tobacco: Every Day Alcohol Use Standard Drinks/Week Comments Yes 0 (1 standard drink = 0.6 oz pur e alcohol) Comments Unknown Sex and Gender Information Value Date Recorded Sex Assigned at Not on file Legal Sex Female 8:26 PM EDT Gender Identity Not on file Sexual Orientation Not on file Last Filed Vital Signs Vital Sign Reading Time Taken Comments Blood Pressure - - Pulse - - Temperature - - Respiratory Rate - - Oxygen Saturation - - Inhaled Oxygen Concentration - - Weight 85.7 kg (189 lb) 07/30/2023 4:43 PM EST Height 170.2 cm (5' 7 ) 07/30/2023 4:43 PM EST Body Mass Index 29.6 07/30/2023 4:43 PM EST Plan of Treatment Health Maintenance Due Date Last Done Comments [facility]-Depression Screening 1967 [facility]-HIV Screening 1967 [facility]-Hepatitis C Screening 1967 [facility]-/Child/Adol SDOH Screenings 1967 [facility]-Obesity Intervention 1973 [facility]- SDOH Screenings 1985 [facility]-Adult SDOH Screenings 1985 [facility]-Hepatitis B Vaccines (1 of 3 - 19+ 3-dose series) 1986 CT Colonography 2012 Colonoscopy 2012 FIT-DNA 2012 FIT 2012 FOBT 2012 Sigmoidoscopy 2012 [facility]-Colorectal Cancer Screening 2012 [facility]-Breast Cancer Screening 2017 [facility]-Pneumococcal Vaccine: 50 + Years (1 of 1 - PCV) 2017 [facility]-Zoster Vaccines (1 of 2) 2017 [facility]-DTaP,Tdap,and Td Vaccine s (2 - Td or Tdap) 07/23/2022 07/23/2012 [id number] Vaccine ( - 20 24-25 season) 2025 [facility]-Influenza Vaccine (#1) 2025 [facility]-Hepatitis A Vaccines Aged Out 01/14/2019 No longer eligible based on patient's age to complete this topic HPV Vaccines Aged Out No longer eligi ble based on patient's age to complete this topic [facility]-HIB Vaccines Aged Out No longer e ligible based on patient's age to complete this topic [facility]-IPV Vaccines Aged Out No longer e ligible based on patient's age to complete this topic [facility]-Rotavirus Vaccines Aged Out No lo nger eligible based on patient's age to complete this topic Insurance [facility] Care Teams Oil Burner Installer Relationship Specialty Start Date End Date Trinidad Johnson APRN [address] [facility] [place] [address] PCP - General 01/14/21
--- OUTSIDE RECORDS SUMMARY | 2025-07-05 11:39 | XMS_ITS | Clinical Summary ---
Author Organization [facility] Address [address] [place] [id number] Care Team Providers Care Breaker Table Worker Name Role Phone Unavailable Primary Care Provider Unavailabl e Social History Tobacco Use Types Packs/Day Years Used Date Smoking Tobacco: Never Assessed Comments Unknown Sex and Gender Information Value Date Recorded Sex Assigned at Not on file Legal Sex Female 2:11 PM EDT Gender Identity Not on file Sexual Orientation Not on file Plan of Treatment Upcoming Encounters Date Type Department Care Team (Late st Contact Info) Description 07/24/2025 12:30 PM EST Office Visit [facility] [address] [facility] [place] [address] Barry Douglas MD [address] [facility] [place] [address] Health Maintenance Due Date Last Done Comments ANNUAL PHYSICAL 1965 Annual Gynecologic Pelvic and Breast Exam 1967 HEPATITIS C SCREENING 1967 TDAP/TD VACCINES (1 - Tdap) 1986 PAP SMEAR 1988 MAMMOGRAM 2007 COLOGUARD 2012 COLON CANCER SCREENING 5 YEAR SIGMOIDOSCOPY 2012 COLONOSCOPY [address] CANCER SCREENING [address] CT COLONOGRAPHY 2012 FECAL OCCULT BLOOD TEST 2012 FIT Testing (1 year) 2012 Pneumococcal Vaccine 50+ (1 of 1 - PCV) 2017 ZOSTER VACCINE (1 of 2) 2017 INFLUENZA VACCINE 04/03/2025 Insurance [employer] [place]ICA[place]
--- NOTE | 2025-07-05 11:45 | [facility].EDGENADL ---
Discharge Plan Disposition Patient Disposition: Home, Self-Care Prescriptions Prescriptions: New ketorolac 10 mg tablet 10 mg PO Q8H PRN (Reason: pain) 1 Days Qty: 14 0RF methocarbamol 500 mg tablet 500 mg PO Q8H Qty: 90 0RF acetaminophen [Tylenol 8 Hour] 650 mg tablet extended release 650 mg PO Q8H PRN (Reason: fever or pain) Qty: 60 0RF lidocaine 5 % adhesive patch,medicated 3 patch topical Q24H Qty: 15 0RF Rx Instructions: leave on most painful area for up to 12 hrs oxycodone 5 mg tablet 5 mg PO DAILY PRN (Reason: pain) Qty: 3 0RF naloxone [Narcan] 4 mg/actuation spray,non-aerosol 4 mg intranasal Q2M PRN (Reason: opioid overdose) Qty: 2 0RF Rx Instructions: spray 1 dose into ONE nostril; alternate nostrils w each dose until help arrives No Action nitroglycerin 0.4 mg tablet, sublingual 0.4 mg sublingual Q5-15M PRN (Reason: chest pain) Qty: 30 1RF Rx Instructions: do not exceed 3 doses per episode dicyclomine 10 mg capsule 10 mg PO QID PRN (Reason: abdominal pain) 90 Days Qty: 120 3RF aspirin [Adult Aspirin Regimen] 81 mg tablet,delayed release (DR/EC) 81 mg PO DAILY Qty: 30 5RF duloxetine 60 mg capsule,delayed release(DR/EC) See Rx Instructions .ROUTE .COMPLEX Qty: 90 2RF Dose Instruction: TAKE ONE CAPSULE BY MOUTH 2 TIMES A DAY FOR DEPRESSION Rx Instructions: TAKE ONE CAPSULE BY MOUTH 2 TIMES A DAY FOR DEPRESSION ropinirole 2 mg tablet 2 mg PO BID Qty: 60 2RF Rx Instructions: administer 1-3 hours before bedtime Referrals Follow up/Referrals: Junior Fischer APRN [Primary Care Provider, Family Practice] - See instructions Activity Restrictions/Add. Instructions Additional Instructions/Restrictions: You were seen in the emergency department for lower back pain. Please take Tylenol, Toradol, Robaxin, lidocaine patches. Please use oxycodone only for breakthrough pain. If symptoms continue, please follow-up with your PCP. If symptoms worsen, or new symptoms develop, please return to the emergency department. Clinical Impressions Clinical Impression: Acute lumbar back pain Instructions Patient Instructions: DI for Low Back Pain Print Language Print Language: [place] Discharge ED Provider: Ozzie Saenz General Adult HPI General Chief complaint: Back Pain/Injury Stated complaint: AO-back pain Time Seen by Provider: 07/05/25 11:38 Mode of Arrival: Ambulatory Source of Information: Patient Description of Symptoms (Recalled from ER Triage Doc. by RN): Pt states she was laying in bed around 2300 when her bed fell with her in it and she felt a pop in her lower back. Pt states she woke up this morning and can barely walk due to the pain shooting down her right leg. Pt does have a prior history of DDD as well as scoliosis History of Present Illness HPI narrative: This patient is a 59-year-old female with past medical history of chronic lower back pain who presents to the emergency department with acute on chronic back pain. She reports that she was lying in bed when the slats that hold her mattress up slid out and she fell approximately 1.5 feet. She landed on the mattress, she did not strike any area of her body. As she fell she felt a wrenching pain in her lower back and the development of radicular symptoms down her right leg. She is able to ambulate at this point. She endorses no urinary or bowel incontinence and no saddle anesthesia. Related Data Previous Rx's ?Medication ?Instructions ?Recorded nitroglycerin 0.4 mg sublingual 0.4 mg sublingual Q5-15M PRN chest 10/02/24 tablet pain #30 tabs dicyclomine 10 mg capsule 10 mg PO QID PRN abdominal pain 90 11/10/24 days #120 caps aspirin 81 mg tablet,delayed 81 mg PO DAILY #30 tabs 01/12/25 release (Adult Aspirin Regimen) duloxetine 60 mg capsule,delayed See Rx Instructions .Route 04/14/25 release .COMPLEX #90 caps ropinirole 2 mg tablet 2 mg PO BID #60 tabs 05/08/25 acetaminophen 650 mg 650 mg PO Q8H PRN fever or pain 07/05/25 tablet,extended release (Tylenol 8 #60 tabs Hour) ketorolac 10 mg tablet 10 mg PO Q8H PRN pain 1 day #14 07/05/25 tabs lidocaine 5 % topical patch 3 patch topical Q24H #15 ea 07/05/25 methocarbamol 500 mg tablet 500 mg PO Q8H #90 tabs 07/05/25 naloxone 4 mg/actuation nasal 4 mg intranasal Q2M PRN opioid 07/05/25 spray (Narcan) overdose #2 ea oxycodone 5 mg tablet 5 mg PO DAILY PRN pain #3 tabs 07/05/25 Allergies Allergy/AdvReac Type Severity Reaction Status Date / Time bupropion (From Wellbutrin) AdvReac Nightmare Verified 04/21/25 13:48 [facility] Disclaimer: The information contained in this section may have been updated after the patient was seen, as this information can be updated by other users. 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 B12 deficiency Surgical History H/O dilation and curettage H/O: hysterectomy Family History Other Coronary artery disease Diabetes Heart attack Kidney disease Thyroid disorder Social History Smoking Status: Current every day smoker tobacco type: e-cigarettes alcohol intake: never substance use type: marijuana current occupational status: unemployed Travel in the last 8 weeks?: None household members: spouse and children housing: house current occupational exposures/hazards: No caffeine: Yes Have you lived/traveled outside [place] in past 30 days?: No Contact w/someone who lives/traveled outside [place] past 30 days?: No Exposure to someone with infectious disease in past 14 days?: No Do you have a fever (greater than 100.4 F or 38 C)?: No Have you tested positive for COVID-19?: No Exposed to someone with COVID-19 in past 14 days?: No Do you have a sore throat?: No Do you have a cough?: No Do you have any weakness?: No Do you have any diarrhea?: No Are you experiencing any unusual bleeding?: No Do you have any muscle aches/pain?: No Do you have any abdominal pain?: No Are you experiencing loss of taste or smell?: No Other Medical History Have you received the Flu Vaccine for this season: Yes Have you received the Pneumonia Vaccine: Yes ROS Obtained: Yes All systems reviewed & no additional complaints except as documented Physical Exam General General appearance: alert and in no apparent distress Head Head exam: atraumatic and normocephalic Eye Eye exam: Present normal appearance, PERRL and EOMI ENT ENT exam: Present normal exam and normal external ear exam Neck Neck exam: Present normal inspection, full ROM and trachea midline Chest Chest inspection: Present normal inspection and symmetric chest wall rise; Absent tenderness Respiratory Respiratory exam: Absent respiratory distress Cardiovascular Cardiovascular exam: Present regular rate, normal rhythm and other (appears warm and well perfused) Abdominal Exam Abdominal exam: Absent distention or tenderness Extremities Exam Extremities exam: Present normal inspection and other (Patient is able to move both lower extremities, reduced strength present and right lower extremity consistent with radicular symptoms) Neurological Exam Neurological exam: Present alert and oriented X3 Psychiatric Psychiatric exam: Present normal affect Skin Skin exam: Present warm and dry Medical Decision Making Medical Records Medical records reviewed: Yes I reviewed the patient's medical records. Screening: Per USPSTF and CDC recommendations, given the prevalence of disease in our region, it is our hospital?s policy to screen for HIV and viral Hepatitis for all patients aged 18 and over and those with ongoing risk factors. Greg Inquiry Pt receiving controlled substance: No Greg was queried for this patient: No Vital Signs: 07/05/25 11:30 07/05/25 11:37 07/05/25 12:00 Temperature 98.0 F Temperature Source Temporal Artery Scan Pulse Rate 77 71 Pulse Rate [Right] 78 Respiratory Rate 24 Blood Pressure 137/105 H 152/108 H Blood Pressure [Right Arm] 152/103 H Blood Pressure Mean [Right Arm] 119 Blood Pressure Source [Right Arm] Automatic Cuff Blood Pressure Position [Right Arm] Sitting 02 Sat by Pulse Oximetry 97 96 98 Oxygen Delivery Method Room Air Room Air Room Air 07/05/25 12:30 07/05/25 13:00 Temperature Temperature Source Pulse Rate 68 68 Pulse Rate [Right] Respiratory Rate Blood Pressure 174/100 H 194/121 H Blood Pressure [Right Arm] Blood Pressure Mean [Right Arm] Blood Pressure Source [Right Arm] Blood Pressure Position [Right Arm] 02 Sat by Pulse Oximetry 95 95 Oxygen Delivery Method Room Air Room Air Lab Data Lab results reviewed: Yes I reviewed the patient's lab results. Orders (Tests/Meds): ED MEDICATIONS Discontinued Medications Generic Name Dose Route Start Last Admin Trade Name Jose PRN Reason Stop Dose Admin Acetaminophen 1,000 mg 07/05/25 11:45 07/05/25 12:04 Acetaminophen 500mg Tab PO 07/05/25 11:46 1,000 mg ONCE ONE Administration Ketorolac Tromethamine 30 mg 07/05/25 11:45 07/05/25 12:04 Ketorolac 30mg/Ml Vial IM 07/05/25 11:46 30 mg ONCE ONE Administration Lidocaine 1 each 07/05/25 11:45 07/05/25 12:03 Lidocaine 5% Transdermal Patch TD 07/05/25 11:46 1 each ONCE ONE Administration Methocarbamol 1,500 mg 07/05/25 11:46 07/05/25 12:03 Methocarbamol 500mg Tablet PO 07/05/25 11:47 1,500 mg ONCE ONE Administration Oxycodone HCl 10 mg 07/05/25 11:45 07/05/25 12:03 Oxycodone 5mg Immediate Release Tablet PO 07/05/25 11:46 10 mg ONCE ONE Administration Prednisone 50 mg 07/05/25 11:45 07/05/25 12:04 Prednisone 20mg Tab 0.5 mg/kg (50 mg) 07/05/25 11:46 50 mg PO Administration ONCE ONE Medical Decision Narrative: MDM In summary, this 59-year-old female presents to the emergency department today with lower back pain. Initial evaluation the patient hemodynamically stable but uncomfortable. Differential diagnosis includes but is not limited to sciatica, lumbar radiculopathy, spinal cord compression, cauda equina, spinal epidural abscess. Based on a careful physical exam and clinical history I think it is most likely the patient is suffering from chronic lower back pain leading to lumbar radiculopathy. The patient has a known history of degenerative disc disease. She has no sensory deficits in the lower extremities, no saddle anesthesia, no incontinence and so I feel the likelihood of true spinal cord compression is very low. She has no history of IV drug use and so my concern for spinal epidural abscess is low additionally she has no infectious signs. Her symptoms and exam are very consistent with lumbar radiculopathy and she has had previous episodes of this and reports feeling the same way. Imaging has little to no utility in diagnosis of lumbar radiculopathy and so I made the decision to treat the patient clinically, assess for any improvement, and if improved to discharge the patient with conservative medications with plans to follow-up with her primary care provider. I did make the decision to discharge the patient with 3 oxycodone for breakthrough pain. The patient does have a history of long-term hydrocodone use but has not had access to medication at home for the last 3 months. In addition to these three 5 mg oxycodone I prescribed the patient Narcan. The patient was comfortable with this plan. Critical Care Critical Care Time Critical Care Time: No
[2025-07-05 12:00] VITALS: BP 152/108; PULSE 71; O2SAT 98
[2025-07-05] MEDS: OXYCODONE 5MG IMMEDIATE RELEASE TABLET 10 MG PO (12:03)
[2025-07-05] MEDS: LIDOCAINE 5% TRANSDERMAL PATCH 1 EACH TD (12:03)
[2025-07-05] MEDS: METHOCARBAMOL 500MG TABLET 1500 MG PO (12:03)
[2025-07-05] MEDS: KETOROLAC 30MG/ML VIAL 30 MG IM (12:04)
[2025-07-05] MEDS: ACETAMINOPHEN 500MG TAB 1000 MG PO (12:04)
[2025-07-05 12:30] VITALS: BP 174/100; PULSE 68; O2SAT 95
[2025-07-05 13:00] VITALS: BP 194/121; PULSE 68; O2SAT 95
[2025-07-05 13:25] VITALS: BP 194/121; PULSE 64; RESP 16; TEMP 36.7; O2SAT 97
== END 2025-07-05 13:26 | disposition home or self-care (01) ==
PROVIDERS: Emergency Provider Student in an Organized Health Care Education/Training Program; PCP Nurse Practitioner Family
DX: M54.16 Radiculopathy, lumbar region (principal); M54.50 Low back pain, unspecified
CPT/HCPCS: 96372; 99283; 99284; J1885

== ENCOUNTER 2025-08-20 13:35 | Emergency (ER) | payer MEDICAID, SELFPAY ==
[2025-08-20 13:41] VITALS: BP 119/88; PULSE 96; RESP 16; TEMP 36.8; O2SAT 98; BMI 32.8
--- NOTE | 2025-08-20 13:42 | HMH.EDGENADL ---
Discharge Plan Disposition Patient Disposition: Home, Self-Care Condition: Good Prescriptions Prescriptions: New oxycodone 5 mg tablet 5 mg PO DAILY Qty: 8 0RF methocarbamol 500 mg tablet 500 mg PO Q8H Qty: 20 0RF lidocaine 5 % adhesive patch,medicated 1 patch topical DAILY Qty: 15 0RF Rx Instructions: leave on most painful area for up to 12 hrs No Action nitroglycerin 0.4 mg tablet, sublingual 0.4 mg sublingual Q5-15M PRN (Reason: chest pain) Qty: 30 1RF Rx Instructions: do not exceed 3 doses per episode dicyclomine 10 mg capsule 10 mg PO QID PRN (Reason: abdominal pain) 90 Days Qty: 120 3RF aspirin [Adult Aspirin Regimen] 81 mg tablet,delayed release (DR/EC) 81 mg PO DAILY Qty: 30 5RF duloxetine 60 mg capsule,delayed release(DR/EC) See Rx Instructions .ROUTE .COMPLEX Qty: 90 2RF Dose Instruction: TAKE ONE CAPSULE BY MOUTH 2 TIMES A DAY FOR DEPRESSION Rx Instructions: TAKE ONE CAPSULE BY MOUTH 2 TIMES A DAY FOR DEPRESSION ropinirole 2 mg tablet 2 mg PO BID Qty: 180 2RF Rx Instructions: administer 1-3 hours before bedtime ketorolac 10 mg tablet 10 mg PO Q8H PRN (Reason: pain) 1 Days Qty: 14 0RF methocarbamol 500 mg tablet 500 mg PO Q8H Qty: 90 0RF acetaminophen [Tylenol 8 Hour] 650 mg tablet extended release 650 mg PO Q8H PRN (Reason: fever or pain) Qty: 60 0RF lidocaine 5 % adhesive patch,medicated 3 patch topical Q24H Qty: 15 0RF Rx Instructions: leave on most painful area for up to 12 hrs oxycodone 5 mg tablet 5 mg PO DAILY PRN (Reason: pain) Qty: 3 0RF naloxone [Narcan] 4 mg/actuation spray,non-aerosol 4 mg intranasal Q2M PRN (Reason: opioid overdose) Qty: 2 0RF Rx Instructions: spray 1 dose into ONE nostril; alternate nostrils w each dose until help arrives Referrals Follow up/Referrals: Junior Fischer APRN [Primary Care Provider, Family Practice] - See instructions Activity Restrictions/Add. Instructions Additional Instructions/Restrictions: Take Tylenol and ibuprofen [id number] for the next 2 days. Use the muscle relaxers and lidocaine patches and only use oxycodone for severe pain do not do any heavy lifting twisting or significant bending for the next 6 weeks. You will need to follow-up with your primary care provider. They can give you referral to spine if you have worsening symptoms. If you have any numbness weakness inability to ambulate please return sooner. Clinical Impressions Clinical Impression: Back pain, Fracture of lumbar spine Instructions Patient Instructions: DI for Low Back Pain Print Language Print Language: Malay Discharge ED Provider: Millie Amaya General Adult HPI <Lenka Gaxiola MD - Last Filed: 08/20/25 15:47> General Chief complaint: Back Pain/Injury Stated complaint: AO-08/19/25-back pain Time Seen by Provider: 08/20/25 13:42 History of Present Illness HPI narrative: Patient is a 60-year-old with past medical history significant for chronic back pain COPD hypertension tobacco use disorder presents emergency department after a fall. Patient was in her bed when the bed collapsed and she fell on her bed a few inches from the ground. Patient fell yesterday and since then has had increased pain from her baseline. Notes intermittent pain that goes down her right leg. Denies bowel or bladder incontinence. Did not hit head or lose consciousness from the fall denies blood thinner use Related Data Previous Rx's ?Medication ?Instructions ?Recorded nitroglycerin 0.4 mg sublingual 0.4 mg sublingual Q5-15M PRN chest 10/02/24 tablet pain #30 tabs dicyclomine 10 mg capsule 10 mg PO QID PRN abdominal pain 90 11/10/24 days #120 caps aspirin 81 mg tablet,delayed 81 mg PO DAILY #30 tabs 01/12/25 release (Adult Aspirin Regimen) duloxetine 60 mg capsule,delayed See Rx Instructions .Route 04/14/25 release .COMPLEX #90 caps acetaminophen 650 mg 650 mg PO Q8H PRN fever or pain 07/05/25 tablet,extended release (Tylenol 8 #60 tabs Hour) ketorolac 10 mg tablet 10 mg PO Q8H PRN pain 1 day #14 07/05/25 tabs lidocaine 5 % topical patch 3 patch topical Q24H #15 ea 07/05/25 methocarbamol 500 mg tablet 500 mg PO Q8H #90 tabs 07/05/25 naloxone 4 mg/actuation nasal 4 mg intranasal Q2M PRN opioid 07/05/25 spray (Narcan) overdose #2 ea oxycodone 5 mg tablet 5 mg PO DAILY PRN pain #3 tabs 07/05/25 ropinirole 2 mg tablet 2 mg PO BID #180 tabs 08/13/25 lidocaine 5 % topical patch 1 patch topical DAILY #15 ea 08/20/25 methocarbamol 500 mg tablet 500 mg PO Q8H #20 tabs 08/20/25 oxycodone 5 mg tablet 5 mg PO DAILY #8 tabs 08/20/25 Allergies Allergy/AdvReac Type Severity Reaction Status Date / Time bupropion (From Wellbutrin) AdvReac Nightmare Verified 04/21/25 13:48 PFS <Lenka Gaxiola MD - Last Filed: 08/20/25 15:47> PFS Disclaimer: The information contained in this section may have been updated after the patient was seen, as this information can be updated by other users. Medical History (Updated 08/20/25 @ 17:12 by Millie Amaya DO) Abnormal findings on diagnostic imaging of heart and coronary circulation skilled nursing use of drug delivery delivered B12 deficiency Surgical History H/O dilation and curettage H/O: hysterectomy Family History Other Coronary artery disease Diabetes Heart attack Kidney disease Thyroid disorder Social History Smoking Status: Current every day smoker tobacco type: e-cigarettes alcohol intake: never substance use type: marijuana current occupational status: unemployed Travel in the last 8 weeks?: None household members: spouse and children housing: house current occupational exposures/hazards: No caffeine: Yes Have you lived/traveled outside US in past 30 days?: No Contact w/someone who lives/traveled outside US past 30 days?: No Exposure to someone with infectious disease in past 14 days?: No Do you have a fever (greater than 100.4 F or 38 C)?: No Have you tested positive for COVID-19?: No Exposed to someone with COVID-19 in past 14 days?: No Do you have a sore throat?: No Do you have a cough?: No Do you have any weakness?: No Do you have any diarrhea?: No Are you experiencing any unusual bleeding?: No Do you have any muscle aches/pain?: No Do you have any abdominal pain?: No Are you experiencing loss of taste or smell?: No Other Medical History Have you received the Flu Vaccine for this season: Yes Have you received the Pneumonia Vaccine: Yes <Lenka Gaxiola MD - Last Filed: 08/20/25 15:47> ROS Obtained: Yes All systems reviewed & no additional complaints except as documented Physical Exam <Lenka Gaxiola MD - Last Filed: 08/20/25 15:47> General General appearance: alert and in no apparent distress Head Head exam: atraumatic Eye Eye exam: Present PERRL Neck Neck exam: Absent tenderness Chest Chest inspection: Present normal inspection Respiratory Respiratory exam: Absent respiratory distress Cardiovascular Cardiovascular exam: Present regular rate and normal rhythm Abdominal Exam Abdominal exam: Present soft; Absent distention or tenderness Back Exam Back exam: Present normal inspection, vertebral tenderness (l spine) and straight leg raise (R); Absent paraspinal tenderness Neurological Exam Neurological exam: Present alert Skin Skin exam: Present warm and other (no bruising) Medical Decision Making <Lenka Gaxiola MD - Last Filed: 08/20/25 15:47> Medical Records Screening: Per USPSTF and CDC recommendations, given the prevalence of disease in our region, it is our hospital?s policy to screen for HIV and viral Hepatitis for all patients aged 18 and over and those with ongoing risk factors. Greg Inquiry Pt receiving controlled substance: No Vital Signs: 08/20/25 13:41 08/20/25 15:44 08/20/25 17:25 Temperature 98.3 F 98.3 F Temperature Source Oral Oral Pulse Rate 75 74 Pulse Rate [Left Brachial] 96 H Respiratory Rate 16 16 18 Blood Pressure 128/72 110/78 Blood Pressure [Left Arm] 119/88 Blood Pressure Mean [Left Arm] 98 Blood Pressure Source Automatic Cuff Automatic Cuff Blood Pressure Source [Left Arm] Automatic Cuff Blood Pressure Position Sitting Sitting Blood Pressure Position [Left Arm] Sitting 02 Sat by Pulse Oximetry 98 98 Oxygen Delivery Method Room Air Room Air Room Air Orders (Tests/Meds): ED MEDICATIONS Discontinued Medications Generic Name Dose Route Start Last Admin Trade Name Jose PRN Reason Stop Dose Admin Acetaminophen 1,000 mg 08/20/25 13:45 08/20/25 13:58 Acetaminophen 500mg Tab PO 08/20/25 13:46 1,000 mg ONCE ONE Administration Ketorolac Tromethamine 15 mg 08/20/25 13:45 08/20/25 13:59 Ketorolac 15mg/Ml Vial IM 08/20/25 13:46 15 mg ONCE ONE Administration Lidocaine 1 each 08/20/25 14:00 08/20/25 13:59 Lidocaine 5% Transdermal Patch TD 09/19/25 13:59 1 each Q24H CHANDRA Administration Methocarbamol 1,500 mg 08/20/25 13:47 08/20/25 13:59 Methocarbamol 500mg Tablet PO 08/20/25 13:48 1,500 mg ONCE ONE Administration Oxycodone HCl 5 mg 08/20/25 13:46 08/20/25 14:00 Oxycodone 5mg Immediate Release Tablet PO 08/20/25 13:47 5 mg ONCE ONE Administration ORDERS Category Date Time Status CT lumbar spine wo con Stat Cat Scan 08/20/25 13:45 Completed Medical Decision Narrative: In summary, this 52-year-old female presents to the emergency department today with back. On initial evaluation patient is hemodynamically stable saturating appropriately on room air afebrile in no acute distress. Differential diagnosis includes but is not limited to acute fracture, sciatica, degenerative disc disease. Patient has intact groin sensation no neurological deficits no bowel or bladder incontinence low suspicion for acute spinal cord syndrome based on these concerns, I ordered CT L-spine. Patient received Toradol Robaxin Tylenol lidocaine patch for treatment. CT imaging personally interpreted demonstrate height loss vertebral body L3. RISHI given to oncoming physician pending formal radiology read of CT. Of note, social determinants of health include daily tobacco use <Millie Amaya DO - Last Filed: 08/20/25 17:51> Vital Signs: 08/20/25 13:41 08/20/25 15:44 08/20/25 17:25 Temperature 98.3 F 98.3 F Temperature Source Oral Oral Pulse Rate 75 74 Pulse Rate [Left Brachial] 96 H Respiratory Rate 16 16 18 Blood Pressure 128/72 110/78 Blood Pressure [Left Arm] 119/88 Blood Pressure Mean [Left Arm] 98 Blood Pressure Source Automatic Cuff Automatic Cuff Blood Pressure Source [Left Arm] Automatic Cuff Blood Pressure Position Sitting Sitting Blood Pressure Position [Left Arm] Sitting 02 Sat by Pulse Oximetry 98 98 Oxygen Delivery Method Room Air Room Air Room Air Lab Data Lab results reviewed: Yes I reviewed the patient's lab results. Orders (Tests/Meds): ED MEDICATIONS Discontinued Medications Generic Name Dose Route Start Last Admin Trade Name Jose PRN Reason Stop Dose Admin Acetaminophen 1,000 mg 08/20/25 13:45 08/20/25 13:58 Acetaminophen 500mg Tab PO 08/20/25 13:46 1,000 mg ONCE ONE Administration Ketorolac Tromethamine 15 mg 08/20/25 13:45 08/20/25 13:59 Ketorolac 15mg/Ml Vial IM 08/20/25 13:46 15 mg ONCE ONE Administration Lidocaine 1 each 08/20/25 14:00 08/20/25 13:59 Lidocaine 5% Transdermal Patch TD 09/19/25 13:59 1 each Q24H CHANDRA Administration Methocarbamol 1,500 mg 08/20/25 13:47 08/20/25 13:59 Methocarbamol 500mg Tablet PO 08/20/25 13:48 1,500 mg ONCE ONE Administration Oxycodone HCl 5 mg 08/20/25 13:46 08/20/25 14:00 Oxycodone 5mg Immediate Release Tablet PO 08/20/25 13:47 5 mg ONCE ONE Administration ORDERS Category Date Time Status CT lumbar spine wo con Stat Cat Scan 08/20/25 13:45 Completed Medical Decision Narrative: In summary, this 52-year-old female presents to the emergency department today with back. On initial evaluation patient is hemodynamically stable saturating appropriately on room air afebrile in no acute distress. Differential diagnosis includes but is not limited to acute fracture, sciatica, degenerative disc disease. Patient has intact groin sensation no neurological deficits no bowel or bladder incontinence low suspicion for acute spinal cord syndrome based on these concerns, I ordered CT L-spine. Patient received Toradol Robaxin Tylenol lidocaine patch for treatment. CT imaging personally interpreted demonstrate height loss vertebral body L3. RISHI given to oncoming physician pending formal radiology read of CT. Of note, social determinants of health include daily tobacco use Millie Amaya DO I assumed care of the patient at 1500. Patient CT scan was read and an acute superior endplate fracture of L3. Patient did have acute tenderness on exam therefore I suspect that this is an acute fracture. I did discuss the case with Dr. Eddie padilla at [facility] with spine. They did not recommend any acute bracing, or any acute interventions at this time given the patient was neurovascularly intact with appropriate pain management at this time. Patient reported significant improvement in her pain with oral medications. Patient was sent with Robaxin, lidocaine patches advised to use Tylenol and ibuprofen patient was sent with oxycodone for breakthrough pain. Patient was vies to not participate in any significant twisting bending or heavy lifting for the next 6 weeks and to follow-up with her primary care provider and return to the emergency department for any worsening neurologic symptoms. Patient was otherwise discharged home in stable condition return precautions were discussed. Critical Care <Lenka Gaxiola MD - Last Filed: 08/20/25 15:47> Critical Care Time Critical Care Time: No
--- NOTE | 2025-08-20 13:45 | CT_ITS ---
FINAL REPORT TECHNIQUE: Thin section axial images were obtained through the lumbar spine without contrast. Multiplanar reconstruction images were obtained from the axial data. Exam was performed using dose reduction technique per the ALARA principle. CLINICAL HISTORY: back pain fall COMPARISON: MRI of the lumbar spine 10/26/2015 FINDINGS: There is a fracture of the superior endplate of L3 on the left side. This was not seen on the prior MRI of 2016, and is age-indeterminate. No other fractures are identified. There is mild anterolisthesis of L4 on L5. Multilevel degenerative disc disease is present. No significant central canal stenosis or neural foraminal narrowing. Evaluation of the soft tissues is limited due to technique. No gross paraspinal abnormality. IMPRESSION: Fracture of the superior left endplate of L3, not seen on the prior MRI of 2016, age indeterminant. Reviewed, Interpreted and Dictated by Ann Conde MD Transcribed by Rosemarie Perkins Authenticated and [facility]
--- NOTE | 2025-08-20 13:50 | PC.NURSE ---
pt to CT via wheelchair with audio/video technician
[2025-08-20] MEDS: ACETAMINOPHEN 500MG TAB 1000 MG PO (13:58)
[2025-08-20] MEDS: LIDOCAINE 5% TRANSDERMAL PATCH 1 EACH TD (13:59)
[2025-08-20] MEDS: METHOCARBAMOL 500MG TABLET 1500 MG PO (13:59)
[2025-08-20] MEDS: KETOROLAC 15MG/ML VIAL 15 MG IM (13:59)
[2025-08-20] MEDS: OXYCODONE 5MG IMMEDIATE RELEASE TABLET 5 MG PO (14:00)
--- OUTSIDE RECORDS SUMMARY | 2025-08-20 14:00 | XMS_ITS | Referral Summary ---
Author Organization [employer] ([place], [place], [place], [place], [place]) Address [address] [place] [address] Care Team Providers Care Rolling Down Machine Operator Name Role Phone Amado Junior GONZALES Primary Care Provider [phone] Allergies Active Allergy Reactions Criticality Noted Date Comments Bupropion Hcl Other (See Comments) 12/03/2024 Medications aspirin 81 MG EC tablet Take 1 tablet (81 mg total) by mouth daily. 10/14/2024 Active dicyclomine (BENTYL) 10 MG capsule Take 1 capsule (10 mg total) by mouth every 6 (six) hours as needed. 11/10/2024 Active DULoxetine (CYMBALTA) 60 MG capsule Take 1 capsule (60 mg total) by mouth 2 (two) times daily. 09/26/2024 Active HYDROcodone-chpais taminophen (NORCO) 7.5-325 mg per tablet Take 1 tablet by mouth 4 (four) times daily as needed. 11/25/2024 Active metoprolol succinate (TOPROL-XL) 25 MG 24 hr tablet Take 1 tablet (25 mg total) by mouth daily. 10/14/2024 Active nitroglycerin (NITROSTAT) 0.[address] 1 tablet (0.4 mg total) under the tongue every 5 (five) minutes as needed for chest pain. 10/02/2024 Active rOPINIRole (REQUIP) 2 MG tablet Take 1 tablet (2 mg total) by mouth 2 (two) times daily. 11/10/2024 Active rosuvastatin (CRESTOR) 40 MG tablet Take 1 tablet (40 mg total) by mouth daily. 10/02/2024 Active valsartan-hydro CHLOROthiazide (DIOVAN-HCT) 80-12.5 mg per tablet Take 1 tablet by mouth daily. 10/14/2024 Active zolpidem (AMBIEN) 5 MG tablet Take 1 tablet (5 mg total) by mouth every night as needed for insomnia. 11/24/2024 Active Active Problems Problem Noted Date Diagnosed Date Vitamin D deficiency 02/23/2016 Overview (12/03/2024): From Automated Load;Provider: Josselyn Wade;Status: Active Fibromyalgia 05/13/2015 Overview (12/03/2024): From Automated Load;Provider: Eryn Reese;Status: Active Wrist joint pain 05/13/2015 Overview (12/03/2024): From Automated Load;Provider: Eryn Reese;Status: Active Resolved Problems Problem Noted Date Diagnosed Date Resolved Date Abnormal C-reactive protein 12/13/2015 12/03/2024 Overview (12/03/2024): From Automated Load;Provider: Josselyn Wade;Status: Active Hip pain 12/13/2015 12/03/2024 Overview (12/03/2024): From Automated Load;Provider: Josselyn Wade;Status: Active Social History Tobacco Use Types Packs/Day Years Used Date Smoking Tobacco: Former Cigarettes 2.5 30 S tarted: 1985 Passive Smoke Exposure: Current Smokeless Tobacco: Never Tobacco Cessation:Counseling Given: Yes Alcohol Use Standard Drinks/Week Comments Yes 0 (1 standard drink = 0.6 oz pur e alcohol) occasionally Comments No Sex and Gender Information Value Date Recorded Sex Assigned at Not on file Legal Sex Female 12:26 PM CDT Gender Identity Not on file Sexual Orientation Not on file Last Filed Vital Signs Vital Sign Reading Time Taken Comments Blood Pressure 110/66 12/29/2024 2:20 PM EDT Pulse 54 12/29/2024 2:20 PM EDT Temperature 36.1 C (97 F) 12/29/2024 10:46 AM EDT Respiratory Rate 20 12/29/2024 12:50 PM EDT Oxygen Saturation 93% 12/29/2024 2:20 PM EDT Inhaled Oxygen Concentration - - Weight 101.6 kg (224 lb) 12/29/2024 10:46 AM EDT Height 170.2 cm (5' 7 ) 12/29/2024 10:46 AM EDT Body Mass Index 35.08 12/29/2024 10:46 AM EDT Plan of Treatment Not on file Insurance [facility] MEDICAID Advance Directives For more information, please contact: [phone] * Full Code (Latest Code Status on File) Date Activated Date Inactivated Comments 12/29/2024 9:38 AM 12/30/2024 4:28 AM Care Teams Rolling Down Machine Operator Relationship Specialty Start Date End Date Junior Fischer APRN [address] [place] [address] PCP - General Nurse Practitioner 12/29/24
--- OUTSIDE RECORDS SUMMARY | 2025-08-20 14:00 | XMS_ITS | Clinical Summary ---
Author Organization Healthcare Address [address] [place] [address] Care Team Providers Care Manager Integration Name Role Phone Trinidad Johnson [employer] PH[employer]GR[employer]HER Primary Care Provider [phone] Family History Medical History Relation Name Comments [...] [facility]-HIV Screening 1967 [facility]-Hepatitis C Screening 1967 [facility]-Infant/Child/Adol SDOH Screenings 1967 [facility]-Obesity Intervention 1973 [facility]- [...] (2 - Td or Tdap) 07/23/2022 07/23/2012 [id number] Vaccine ( 25-26 season) 2025 [facility]-Influenza Vaccine (#1) 2025 [facility]-Hepatitis A Vaccines Aged Out 01/14/2019 No longer eligible based on patient's age to complete this topic HPV Vaccines (No Doses Required) Completed [facility]-HIB Vaccines Aged Out No longer e ligible based on patient's age to complete this topic [facility]-IPV Vaccines Aged Out No longer e ligible based on patient's age to complete this topic [facility]-Rotavirus Vaccines Aged Out No lo nger eligible based on patient's age to complete this topic Insurance [employer] Care Teams Manager Integration Relationship Specialty Start Date End Date Trinidad Johnson APRN [address] [facility] [place], [place] [id number] PCP - General 01/14/21
--- OUTSIDE RECORDS SUMMARY | 2025-08-20 14:00 | XMS_ITS | Clinical Summary ---
Author Organization [facility] Address [address] [place] [id number] Care Team Providers Care Block Tester Name Role Phone Unavailable Primary Care Provider [...] Care Team (Late st Contact Info) Description 08/24/2025 12:30 PM EST Office Visit [facility] [address] [place] [address] Barry Douglas MD [address] [facility] [place] [address] Health Maintenance Due Date Last Done Comments [...]
--- OUTSIDE RECORDS SUMMARY | 2025-08-20 14:00 | XMS_ITS | Clinical Summary ---
Author Organization [employer] ([place], [place], [place], [place], [place]) Address [address] [place] [address] Care Team Providers Care Business Process Consultant Name Role Phone Amado Junior GONZALES Primary Care Provider Allergies Active Allergy Reactions Criticality Noted Date [...] mouth 2 (two) times daily. 09/26/2024 Active HYDROcodone-chapis taminophen (NORCO) 7.5-325 mg per tablet Take [...] (12/03/2024): From Automated Load;Provider: Josselyn Wade;Status: Active Family History Medical History Relation Name Comments Heart disease Brother Heart attack Father Heart disease Father Heart failure Father Hypertension Father Stroke Father Diabetes Mother Heart attack Mother Hypertension Mother Relation Name Status Comments Brother Father Mother Social History Tobacco Use Types Packs/Day Years Used Date Smoking Tobacco: Former Cigarettes 2.5 30 S tarted: 1984 Passive Smoke Exposure: Current Smokeless Tobacco: Never [...] 12/29/2024 10:46 AM EDT Plan of Treatment Health Maintenance Due Date Last Done Comments CT Colonography 1967 Colonoscopy 1967 Colorectal Cancer Screening 1967 FOBT/FIT 1967 Fit-DNA (Cologuard) 1967 Sigmoidoscopy 1967 Depression Screening (12+) 1979 HIV Screening 1982 Hepatitis C Screening 1985 Pneumococcal 50+ years (1 of 2 - PCV) 1986 Pap Smear 1988 Breast Cancer Screening 2007 Lipid Panel 2012 Shingles Vaccine (Zoster) (1 of 2) 2017 DTAP/TDAP/TD VACCINES (2 - Td or Tdap) 07/23/2022 COVID-19 VACCINE (1 - season) 2025 Influenza Vaccine (#1) 2025 Tobacco Cessation Counseling and Screening (12+) 12/2912/29/2024 Insurance [facility] MEDICAID Advance Directives For more information, please contact: [phone] * Full Code (Latest Code Status on File) Date Activated Date Inactivated Comments 12/29/2024 9:38 AM 12/30/2024 4:28 AM Care Teams Business Process Consultant Relationship Specialty Start Date End Date Junior Fischer APRN [address] [place] [address] PCP - General Nurse Practitioner 12/29/24
[2025-08-20 15:44] VITALS: BP 128/72; PULSE 75; RESP 16; O2SAT 98
--- NOTE | 2025-08-20 15:45 | PC.NURSE ---
rounded on patient; pt aware that we are waiting on xray results at this time. Pt given a warm blanket, no other needs. Call العراقي within reach
--- NOTE | 2025-08-20 16:08 | PC.NURSE ---
called [facility] for consult at this time
[2025-08-20 17:25] VITALS: BP 110/78; PULSE 74; RESP 18; TEMP 36.8; O2SAT 98
== END 2025-08-20 17:26 | disposition home or self-care (01) ==
PROVIDERS: Emergency Provider Student in an Organized Health Care Education/Training Program; PCP Nurse Practitioner Family
DX: S32.039A Unspecified fracture of third lumbar vertebra, initial encounter for closed fracture (principal); M54.59 Other low back pain; W06.XXXA Fall from bed, initial encounter
CPT/HCPCS: 72131; 96372; 99284; J1885

== ENCOUNTER 2025-08-25 12:06 | Outpatient (CLI) | payer MEDICAID, SELFPAY ==
--- OUTSIDE RECORDS SUMMARY | 2025-08-20 16:48 | XMS_ITS | Encounter Summary ---
Author Organization Healthcare Address [address] [place] [address] Care Team Providers Care Analytical Data Miner Name Role Phone Trinidad Johnson APRN Primary Care Provider Encounter Details Date Type Department Care Team (Latest Contact Info) Description 08/20/2025 4:48 PM EST - 08/20/2025 11:59 PM EST Hospital Encounter [facility] [address] [place] [address] Examination Discharge Disposition: Home or Self Care Social History Tobacco Use Types Packs/Day Years Used Date Smoking Tobacco: Every Day Alcohol Use Standard Drinks/Week Comments Yes 0 (1 standard drink = 0.6 oz pur e alcohol) Comments Unknown Sex and Gender Information Value Date Recorded Sex Assigned at Not on file Legal Sex Female 8:26 PM EDT Gender Identity Not on file Sexual Orientation Not on file documented as of this encounter Plan of Treatment Not on file documented as of this encounter Procedures Procedure Name Priority Date/Time Associated Diagnosis Comments CT LUMBAR SPINE WO IV CONTRAST Routine 08/20/2025 4:48 PM EST Examination documented in this encounter Results * CT Lumbar Spine wo IV Contrast (08/20/2025 4:48 PM EST) Narrative IMAGING - 08/20/2025 4:48 PM EST This study was performed at an outside facility and has been loaded into the PACS system for reference only. This order has been auto-finalized and does not contain a result. us Imaging Upload Radiant IMG CT PROCEDURES Final R esult IMAGING documented in this encounter Visit Diagnoses Diagnosis Examination Unspecified examination documented in this encounter Care Teams Analytical Data Miner Relationship Specialty Start Date End Date Trinidad Johnson APRN [id number] PCP - General 01/14/21 documented as of this encounter
--- OUTSIDE RECORDS SUMMARY | 2025-08-24 12:30 | XMS_ITS | Encounter Summary ---
Author Organization [facility] Address [address] [place] [address] Care Team Providers Care Photo Stylist Name Role Phone Barry Douglas MD Primary Care Provider + Reason for Referral * Diagnostic Imaging (Routine) - Authorized Specialty Diagnoses / Procedures Referred By Contac t Referred To Contact Diagnoses Anterolisthesis of lumbar spine Chronic midline low back pain with right-sided sciatica Procedures XR Spine Lumbar Complete With Flex & Ext Barry Douglas MD [address] [place] [address] Phone: tel: fax: Referral ID Status Reason Start Date Expiration Date V isits Requested Visits Authorized [id number] Authorized 08/24/2025 11/23/2026 1 1 Reason for Visit * Reason Comments 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, buttock & leg pain Seen at [facility] ER on 08-20-25 Hypertension Doesn't take her BP med because she does not trust her last doctor Encounter Details Date Type Department Care Team (Late st Contact Info) Description 08/24/2025 12:30 PM EST Office Visit [facility] [address] [place] [phone] Barry Douglas MD [address] [place] [address] Chronic midline low back pain with right-sided sciatica (Primary Dx); Anterolisthesis of lumbar spine; Fibromyalgia; Restless leg syndrome; Insomnia due to medical condition; Hypercholesterolemia; Primary hypertension; Cigarette smoker Social History Tobacco Use Types Packs/Day Years Used Date Smoking Tobacco: Former Cigarettes Tobacco Cessation:Counseling Given: Not Answered Comments Unknown Sex and Gender Information Value Date Recorded Sex Assigned at Not on file Legal Sex Female 2:11 PM EDT Gender Identity Not on file Sexual Orientation Not on file documented as of this encounter Last Filed Vital Signs Vital Sign Reading Time Taken Comments Blood Pressure 130/90 08/24/2025 12:51 PM EST Pulse 94 08/24/2025 12:51 PM EST Temperature 36.2 C (97.1 F) 08/24/2025 12:51 PM EST Respiratory Rate 20 08/24/2025 12:51 PM EST Oxygen Saturation 97% 08/24/2025 12:51 PM EST Inhaled Oxygen Concentration - - Weight 97.5 kg (215 lb) 08/24/2025 12:51 PM EST Height 170.2 cm (5' 7 ) 08/24/2025 12:51 PM EST Body Mass Index 33.67 08/24/2025 12:51 PM EST documented in this encounter Progress Notes * Barry Douglas MD - 08/24/2025 12:30 PM EST Chief Complaint 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 who presents for chronic back pain. Back pain has been present for 3 years. Back pain is located in the lumbar spine in the midline and radiates to the right hip, buttock and down to the right foot. There was no specific injury. Patient was caring for her elderly parents and performing a lot of lifting and pulling. Patient's back pain has been treated with medications including NSAIDs, gabapentin, hydrocodone/acetaminophen, oxycodone. She has Co. diagnosis of fibromyalgia for which she is on duloxetine. Patient's previous primary care provider discontinued her opiates. Gabapentin was never effective. She believes she may have also been prescribed amitriptyline which caused oversedation. She recalls seeing pain management at [facility] and describes SI joint injections which incapacitated her for 2 weeks. MRI of the lumbar spine report is available for review and is significant for multilevel degenerative disc disease, L4-5 anterolisthesis of 4mm, bulging disc disease at multiple levels with L5-S1 potentially abutting the nerve root. Patient's pain is most problematic at night. She has also participated in physical therapy. Currently she will sit in her bed and lean forward on a desk chair to get sleep. Her preferred sleeping position is on her right side but when laying this way will be awakened after a couple of hourswith pain in her back that shoots down her right leg. She has tried to change sleeping positions and is unable to sleep on her back or her left side. More recently she was at a local emergency room and told she had a lumbar fracture . Patient also has hypertension and hypercholesterolemia. She is a cigarette smoker. Earlier in the year she had an abnormal stress test and underwent left heart catheterization showing mild luminal irregularities but no significant obstructive coronary disease. Patient has stopped taking any antihypertensive or statin. The following portions of the patient's history were reviewed and updated as appropriate: allergies, current medications, past family history, past medical history, past social history, past surgicalhistory, and problem list. Review of Systems Objective Vital Signs: BP 130/90 Pulse 94 Temp 97.1 ??F (36.2 ??C) Resp 20 Ht 170.2 cm (67 ) Wt 97.5 kg (215 lb) SpO2 97% BMI 33.67 kg/m?? Physical Exam Vitals reviewed. Constitutional: Appearance: Normal appearance. Musculoskeletal: Lumbar back: No swelling, deformity, lacerations or spasms. Decreased range of motion. Comments: Pain with lumbar flexion to 80 degrees. Pain with lumbar extension. Neurological: Mental Status: She is alert. Result Review Assessment and Plan Diagnoses and all orders for this visit: 1. Chronic midline low back pain with right-sided sciatica (Primary) - DULoxetine (CYMBALTA) 60 MG capsule; Take 1 capsule by mouth 2 (Two) Times a Day. Dispense: 60 capsule; Refill: 1 - XR Spine Lumbar Complete With Flex & Ext; Future 2. Anterolisthesis of lumbar spine - XR Spine Lumbar Complete With Flex & Ext; Future 3. Fibromyalgia - DULoxetine (CYMBALTA) 60 MG capsule; Take 1 capsule by mouth 2 (Two) Times a Day. Dispense: 60 capsule; Refill: 1 4. Restless leg syndrome 5. Insomnia due to medical condition - zolpidem (AMBIEN) 5 MG tablet; Take 1 tablet by mouth At Night As Needed for Sleep. Dispense: 30 tablet; Refill: 1 6. Hypercholesterolemia 7. Primary hypertension 8. Cigarette smoker Plan 1. Chronic back pain. Due to presence of anterolisthesis patient will obtain updated x-rays with flexion and extension films. Recent CT scan performed at [facility] will be obtained along with previous pain management records if available. 2. Duloxetine will be increased to 60 mg twice daily for her chronic pain 3. Patient claimed to be able to sleep through the night with use of zolpidem which will be prescribed. Effectiveness will be reassessed in 1 month 4. Regarding the use of opiates, these will not be used to treat the patient's chronic pain. I do believe pain management will be able to assist her. Should instability be present on flexion-extension films of the lumbar spine patient would be referred to a spinal surgeon 5. RLS. Stable. Continue ropinirole 6. Patient has multiple risk factors for coronary artery disease. I did recommend she take her statin 7. Cigarette use will be addressed in further detail at follow-up visit. Follow Up Return in about 1 month (around 09/24/2025). Patient was given instructions and counseling regarding her condition or for health maintenance advice. Please see specific information pulled into the AVS if appropriate. documented in this encounter Plan of Treatment Upcoming Encounters Date Type Department Care Team (Late st Contact Info) Description 09/24/2025 11:00 AM EST Office Visit [facility] [address] [place] [phone] Barry Douglas MD [address] [place] [address] Scheduled Orders Name Type Priority Associated Diagnoses Orde r Schedule XR Spine Lumbar Complete With Flex & Ext Imaging Routine Anterolisthesis of lumbar spine Chronic midline low back pain with right-sided sciatica Expected: 08/24/2025 (Approximate), Expires: 11/22/2026 documented as of this encounter Visit Diagnoses Diagnosis Chronic midline low back pain with right-sided sciatica- Primary Anterolisthesis of lumbar spine Fibromyalgia Unspecified myalgia and myositis Restless leg syndrome Restless legs syndrome (RLS) Insomnia due to medical condition Organic insomnia, unspecified Hypercholesterolemia Pure hypercholesterolemia Primary hypertension Unspecified essential hypertension Cigarette smoker Tobacco use disorder documented in this encounter Care Teams Photo Stylist Relationship Specialty Start Date End Date Barry Douglas MD [address] [place] [address] PCP - General Family Medicine 08/24/25 documented as of this encounter
--- OUTSIDE RECORDS SUMMARY | 2025-08-25 12:10 | XMS_ITS | Clinical Summary ---
Author Organization [facility] Address [address] [place] [address] Care Team Providers Care Tube Inspector Name Role Phone Trinidad Johnson APRN Primary Care Provider Encounters Date Type Department Care Team Description 08/20/2025 4:48 PM EST - 08/20/2025 11:59 PM EST Hospital Encounter [facility] [address] [place] [address] Examination Discharge Disposition: Home or Self Care from Last 3 Months Family History Medical History Relation Name Comments [...] Sign Reading Time Taken Comments Blood Pressure 128/72 08/20/2025 4:16 PM EST Pulse 75 08/20/2025 4:16 PM EST Temperature 36.8 C (98.3 F) 08/20/2025 4:16 PM EST Respiratory Rate 16 08/20/2025 4:16 PM EST Oxygen Saturation 98% 08/20/2025 4:16 PM EST RA Inhaled Oxygen Concentration - - Weight 85.7 [...] (2 - Td or Tdap) 07/23/2022 07/23/2012 [id number] Vaccine ( - 20 25-26 season) 2025 [facility]-Influenza Vaccine (#1) 2025 08/21/2023 [facility]-Hepatitis A Vaccines Aged Out 01/14/2019 No [...] on patient's age to complete this topic Procedures Procedure Name Priority Date/Time Associated Diagnosis Comments CT LUMBAR SPINE WO IV CONTRAST Routine 08/20/2025 4:48 PM EST Examination from Last 3 Months Results * CT Lumbar Spine wo IV Contrast (08/20/2025 4:48 PM EST) Narrative IMAGING - 08/20/2025 4:48 PM EST This study was performed at an outside facility and has been loaded into the PACS system for reference only. This order has been auto-finalized and does not contain a result. us Imaging Upload Radiant IMG CT PROCEDURES Final R esult IMAGING from Last 3 Months Insurance CIG Care Teams Tube Inspector Relationship Specialty Start Date End Date Trinidad Johnson APRN [id number] PCP - General 01/14/21
--- OUTSIDE RECORDS SUMMARY | 2025-08-25 12:10 | XMS_ITS | Encounter Summary ---
Author Organization [facility] Address [address] [place] [id number] Care Team Providers Care External Relations Director Name Role Phone Barry Douglas MD Primary Care Provider + Encounter Details Date Type Department Care Team (Latest Contact Info) Description 08/24/2025 Travel Social History Tobacco Use Types Packs/Day Years Used Date Smoking Tobacco: Former Cigarettes Comments Unknown Sex and Gender Information Value Date Recorded Sex Assigned at Not on file Legal Sex Female 2:11 PM EDT Gender Identity Not on file Sexual Orientation Not on file documented as of this encounter Plan of Treatment Upcoming Encounters Date Type Department Care Team (Late st Contact Info) Description 09/24/2025 11:00 AM EST Office Visit [facility] [address] [address] Barry Douglas MD [address] [address] documented as of this encounter Visit Diagnoses Not on filedocumented in this encounter Care Teams External Relations Director Relationship Specialty Start Date End Date Barry Douglas MD [address] [place] [address] PCP - General Family Medicine 08/24/25 documented as of this encounter
--- OUTSIDE RECORDS SUMMARY | 2025-08-25 12:10 | XMS_ITS | Clinical Summary ---
Author Organization [facility] Address [address] [place] [address] Care Team Providers Care Appeals Examiner Name Role Phone Barry Douglas MD Primary Care Provider + Allergies Active Allergy Reactions Criticality Noted Date Comments Bupropion Other (See Comments) 12/03/2024 nightmares Medications rOPINIRole (REQUIP) 2 MG tablet Take 1 tablet by mouth 2 (Two) Times a Day. 08/12/20 25 Active methocarbamol (ROBAXIN) 500 MG tablet 08/20/20 25 Active lidocaine (LIDODERM) 5 % APPLY 1 PATCH TOPICALLY TO MOST PAINFUL AREA AND LEAVE ON FOR 12 HOURS THEN REMOVE AND LEAVE OFF FOR 12 HOURS 07/06/20 25 Active DULoxetine (CYMBALTA) 60 MG capsuleIndicat ions:Fibromyal elvira,Chronic midline low back pain with right-sided sciatica Take 1 capsule by mouth 2 (Two) Times a Day. 60 capsule 1 08/24/20 25 Active zolpidem (AMBIEN) 5 MG tabletIndicati ons:Insomnia due to medical condition Take 1 tablet by mouth At Night As Needed for Sleep. 30 tablet 1 08/24/20 25 Active oxyCODONE (ROXICODONE) 5 MG immediate release tablet take 1 tablet by mouth once a day as needed for pain 07/06/20 025 Discontinued DULoxetine (CYMBALTA) 60 MG capsule Take 1 capsule by mouth Daily. 04/14/20 25 025 Discontinued(Re order) Active Problems Problem Noted Date Diagnosed Date Primary hypertension 08/24/2025 Hypercholesterolemia 08/24/2025 Fibromyalgia 08/24/2025 Cigarette smoker 08/24/2025 Restless leg syndrome 08/24/2025 Chronic midline low back pain with right-sided s ciatica 08/24/2025 Anterolisthesis of lumbar spine 08/24/2025 Encounters Date Type Department Care Team Description 08/24/2025 12:30 PM EST Office Visit [facility] [address] [phone] Barry Douglas MD Chronic midline low back pain with right-sided sciatica (Primary Dx); Anterolisthesis of lumbar spine; Fibromyalgia; Restless leg syndrome; Insomnia due to medical condition; Hypercholesterolemia; Primary hypertension; Cigarette smoker 08/24/2025 Travel from Last 3 Months Immunizations Immunization Administration Dates Next Due Fluzone (or Fluarix & Flulaval for VFC) >6mos Hepatitis A 01/14/2019 Tdap 07/23/2012 Social History Tobacco Use Types Packs/Day Years [...] Mass Index 33.67 08/24/2025 12:51 PM EST Plan of Treatment Upcoming Encounters Date Type Department Care Team (Late st Contact Info) Description 09/24/2025 11:00 AM EST Office Visit [facility] [address] [place] [phone] Barry Douglas MD [address] [address] Health Maintenance Due Date Last Done Comments Annual Gynecologic Pelvic an d Breast Exam 1967 LIPID PANEL 1967 Pneumococcal Vaccine 50+ (1 of 2 - PCV) 1986 PAP SMEAR 1988 MAMMOGRAM 2007 COLOGUARD 2012 COLON CANCER SCREENING 5 YEA R SIGMOIDOSCOPY 2012 COLONOSCOPY [address] CANCER SCREENING 2012 CT COLONOGRAPHY 2012 FECAL OCCULT BLOOD TEST 2012 FIT Testing (1 year) 2012 ZOSTER VACCINE (1 of 2) 2017 TDAP/TD VACCINES (2 - Td or Tdap) 07/23/2022 012 ANNUAL PHYSICAL 08/24/2025 HEPATITIS C SCREENING 08/24/2025 INFLUENZA VACCINE 09/07/2025 08/21/2023 Postponed from 04/03/2025 (Product Unavailable) Insurance [employer] MEDICAID [place] Care Teams Appeals Examiner Relationship Specialty Start Date End Date Barry Douglas MD [address] [place] [address] PCP - General Family Medicine 08/24/25
--- OUTSIDE RECORDS SUMMARY | 2025-08-25 12:10 | XMS_ITS | Clinical Summary ---
Author Organization [employer] ([place], [place], [place], [place], [place]) Address [address] [place] [address] Care Team Providers Care Forest Patrolman Name Role Phone Amado Junior GONZALES Primary Care Provider [phone] Allergies Active Allergy Reactions Criticality Noted Date [...] Cessation Counseling and Screening (12+) 12/2912/29/[address] [facility] MEDICAID Advance Directives For more information, please contact: [phone] * Full Code (Latest Code Status on File) Date Activated Date Inactivated Comments 12/29/2024 9:38 AM 12/30/2024 4:28 AM Care Teams Forest Patrolman Relationship Specialty Start Date End Date Junior Fischer APRN [address] [place] [address] PCP - General Nurse Practitioner 12/29/24
--- OUTSIDE RECORDS SUMMARY | 2025-08-25 12:10 | XMS_ITS | Referral Summary ---
Author Organization [employer] ([place], [place], [place], [place], [place]) Address [address] [place] [address] Care Team Providers Care Aluminum Pool Installer Name Role Phone Amado Junior GONZALES Primary Care Provider [phone] Allergies Active Allergy Reactions Criticality Noted Date [...] Plan of Treatment Not on file Insurance [facility] MEDICAID Advance Directives For more information, please contact: [phone] * Full Code (Latest Code Status on File) Date Activated Date Inactivated Comments 12/29/2024 9:38 AM 12/30/2024 4:28 AM Care Teams Aluminum Pool Installer Relationship Specialty Start Date End Date Junior Fischer APRN [address] [place] [address] PCP - General Nurse Practitioner 12/29/24
--- OUTSIDE RECORDS SUMMARY | 2025-08-25 12:10 | XMS_ITS | Data Portability ---
Author Organization [facility] DOMINIC Slaughter [place] CLOSED Address [address] [facility] [address] [place] [address] Care Team Providers Care Restaurant Supervisor Name Role Phone OLIVIA VICK Primary Care Provider Assessment No assessment recorded. Plan of Treatment Reminders Order Date Submit Date Provider Last Modified By Organization Details Last Modified Time Details Appointments None recorded. Lab None recorded. Referral None recorded. Procedures None recorded. Surgeries None recorded. Imaging XR, cervical spine, 2 or 3 view 2022 023 [facility], [address] [place], [address], 3 16:40:14 XR, thoracic spine, 2 view 2022 023 [facility], [address] [place], [address], 3 16:40:33 XR, chest, 2 view 2022 023 [email or web address] [facility], [address] [place], [address], 3 08:45:41 Medication Orders duloxetine 60 mg capsule,del ayed release 2022 023 [facility] #[id number], [address] [address] [place], [id number], 3 15:16:33 tramadol 50 mg tablet 2022 023 [facility] #, [address] [facility] [address], [place], [id number], 3 15:16:36 pregabalin 150 mg capsule 2022 023 [facility] #, [address] [facility] [address], [place], [id number], 3 15:16:44 ropinirole 3 mg tablet 2022 023 [facility] #, [address] [facility] [address], [place], [id number], 3 15:16:44 potassium chloride ER 10 mEq tablet,exte nded release 2022 023 [facility] #, [address] [facility] [address], [place], [id number], 3 15:16:06 magnesium 400 mg (as magnesium oxide) tablet 2022 023 [facility] #, [address] [facility] [address], [place], [id number], 3 15:16:01 duloxetine 60 mg capsule,del ayed release 2022 023 [facility] #, [address] [facility] [address], [place], [id number], 3 16:04:29 tramadol 50 mg tablet 2022 023 [facility], [address] [facility] [address], [place], [id number], 3 16:04:25 pregabalin 150 mg capsule 2022 023 [facility]14[facility], [address] [facility] [address], [place], [id number], 3 16:04:24 ropinirole 3 mg tablet 2022 023 [facility] #43573, [address] [facility] [address], [place], [id number], 3 16:04:19 Medrol (Chris) 4 mg tablets in a dose pack 2022 023 [facility] #93200, [address] [facility] [address], [place], [id number], 3 16:07:06 Augmentin 875 mg-125 mg tablet 2022 023 [facility] #54780, [address] [facility] [address], [place], [id number], 3 15:17:01 duloxetine 60 mg capsule,del ayed release 2021 022 [facility] #94382, [address] [facility] [address], [place], [id number], 2 14:35:39 tramadol 50 mg tablet 2021 022 [facility]59097, [address] [facility] [address], [place], [id number], 2 14:35:50 pregabalin 150 mg capsule 2021 022 [facility]540[facility], [address] [facility] [address], [place], [id number], 2 14:35:42 ropinirole 3 mg tablet 2021 [facility] #49588, [address] [facility] [address], [place], [id number], 14:35:40 lidocaine 5 % topical patch 2021 [facility] #20502, [address] [facility] [address], [place], [id number], 14:56:20 Depo-Medrol 80 mg/mL suspension for injection 2021 [email or web address] Not available 15:13:05 duloxetine 60 mg capsule,del ayed release 2021 [facility]62042, [address] [facility] [address], [place], [id number], 14:56:20 tramadol 50 mg tablet 2021 [facility] #42287, [address] [facility] [address], [place], [id number], 14:56:23 pregabalin 150 mg capsule 2021 [place] [facility] #55835, [address] [facility] [address], [place], [id number], 14:56:22 ropinirole 3 mg tablet 2021 [facility] #27043, [address] [facility] [address], [place], [id number], 14:56:19 lidocaine 5 % topical patch 2021 [facility] #96707, [address] [facility] [address], [place], [id number], 2 12:02:14 gabapentin 600 mg tablet [email or web address] [place] [address] [facility] #55943, [address] [facility] [address], [place], [id number], 2 14:32:53 ropinirole 2 mg tablet 2021 [facility] #67595, [address] [facility] [address], [place], [id number], 2 14:57:01 duloxetine 60 mg capsule,del ayed release 2021 [facility] #51764, [address] [facility] [address], [place], [id number], 12:02:18 tramadol 50 mg tablet 2021 [facility] #09439, [address] [facility] [address], [place], [id number], 2 12:02:20 Medrol (Chris) 4 mg tablets in a dose pack [email or web address] [place] [address] [facility] #78723, [address] [address] [address], [place], [id number], 14:33:05 Patient TargetsNo targets recorded. Patient InstructionsNo instructions recorded. Reason for Referral None Reported. Results Created Date Observation Date Name Description Value Unit Range Abnormal Flag Note LastModifiedBy Organization Detail LastModifiedTime 11/22/19 23 11/21/2022 XR, cervi rey spine , 2 or 3 view [place] [facility] [address] [facility] [place] [address] Paticole lerma Name: BIA lerma : 967 [...] Binta Hurtado MD on 023 4:35 PM [facility] [address] [place] [address], [address], 12/03/2022 19:14:40 11/22/19 23 11/21/2022 XR, thora cic spine , 2 view [facility] [address] [place] [address] Patien t Name: BIA lerma : 967 [...] Binta Hurtado MD on 023 4:35 PM [facility] [address] [place], [address], 12/03/2022 19:17:31 Result Notes Documentation Provider Name and Address Organization Details Recorded Time Xr, Cervical Spine, 2 Or 3 View : [place] [address] Patient Name: BIA JAMES Patient : 1965 [...] By: Enmanuel Hurtado MD ELYN KLEIN APRN [address] [place] [address], [address], [facility] 11/28/2022 10:02:34 Xr, Thoracic Spine, 2 View : [place] [id number] Patient Name: BIA JAMES Patient : 1965 [...] By: Enmanuel Hurtado MD ELYN KLEIN APRN [address] [place] [address], [address], [facility] 11/28/2022 10:02:34 Problems Name Problem SNOMED Code Status Onset Date Resolution Date Notes Provider Name and Address Organization Details Recorded Time Fibromyal elvira 051446747 Active 2014 From Automated Load;Provi luke: Reese, Eryn;Stat us: Active Not Available [facility] 3 19:07:53 Pain of joint 44917472 Active 2014 From Automated Load;Provi luke: Eryn Reese;Stat us: Active Not Available [facility] 3 19:07:53 C-reactiv e protein outside reference range 264699604 Active 2015 From Automated Load;Provi luke: Josselyn Klein;St atus: Active Not Available [facility] 3 19:07:53 Pain of joint of wrist 935682517 Active 2015 From Automated Load;Provi luke: Josselyn Klein;St atus: Active Not Available [facility] 3 19:07:53 Pain of hip region 56910259 Active 2015 From Automated Load;Provi luke: Josselyn Klein;St atus: Active Not Available [facility] 3 19:07:53 Vitamin D deficienc y 55175601 Active 2015 From Automated Load;Provi luke: Josselyn Klein;St atus: Active Not Available [facility] 3 19:07:53 Problem Notes Documentation Provider Name and Address Organization Details Recorded Time Rheumatology Note : [address] [address]MJNDW, Sharon (id #[id number], : 1965) [address] [address] Encounter Summary - Progress Note Date Printed: [...] received this fax in error, please visit [email or web address] to notify the sender and confirm that the information will be destroyed. If you do not have internet access, please call to notify the sender and confirm that the information will be destroyed. Thank you for your attention and cooperation. [ID:[id number]] Patient Bia James (57yo, F) #[id number] 1965 Patient Demographics: Address [address] [place] [address] Work Phone Encounter Notes: Encounter Reason/Date medication [...] days. Qty: (180) capsule Refills: 1 Pharmacy: [facility] #[id number] Note to Pharmacy: dose change tramadol 50 mg tablet - Take 1 tablet(s) twice a day by oral route. Qty: (180) tablet Refills: 0 Pharmacy: [facility] #[id number] pregabalin 150 mg capsule - Take 1 capsule(s) twice a day by oral route. Qty: (180) capsule Refills: 0 Pharmacy: [facility] #32965 ropinirole 3 mg tablet - Take 1 tablet(s) 3 times a day by oral route. Qty: (270) tablet Refills: 1 Pharmacy: [facility] #32958 2. Chronic low back pain-with recent injury [...] recorded Electronically Signed by: JOSSELYN KLEIN APRN, DRILLING MACHINE OPERATOR [place] Chun [facility] 08/22/2022 14:52:59 Rheumatology Note : [address] [address]CGBHD, Sharon (id #[id number], : 1965) [address] [address] Encounter Summary - Progress Note Date Printed: [...] received this fax in error, please visit [email or web address] to notify the sender and confirm that the information will be destroyed. If you do not have internet access, please call to notify the sender and confirm that the information will be destroyed. Thank you for your attention and cooperation. [ID:[id number]] Patient Bia James (57yo, F) #[id number] 1965 Patient Demographics: Address [address] [place] [address] Work Phone Encounter Notes: Encounter Reason/Date f/u [...] days. Qty: (180) capsule Refills: 1 Pharmacy: [facility] # Note to Pharmacy: dose change tramadol 50 mg tablet - Take 1 tablet(s) twice a day by oral route. Qty: (180) tablet Refills: 0 Pharmacy: [facility] # pregabalin 150 mg capsule - Take 1 capsule(s) twice a day by oral route. Qty: (180) capsule Refills: 0 Pharmacy: [facility] # ropinirole 3 mg tablet - Take 1 tablet(s) 3 times a day by oral route. Qty: (270) tablet Refills: 1 Pharmacy: [facility] # 2. Chronic low back pain-with recent injury feeling a pulling feeling and tightness will continue with lidocaine patches prnM54.50: Low back pain, unspecified 3. Neck painM54.2: Cervicalgia XR CERVICAL AP/LAT Weight (lbs): 189 Place of service: OFFICE Procedure code: 59032 Authorization: [employer] [place] [address] XR THORACIC AP/LAT Weight (lbs): 189 Place of service: OFFICE Procedure code: 34882 Authorization: [employer] [place] [address] 4. MwcpuQ85.9: Cough, unspecified XR CHEST PA/LAT Weight (lbs): 189 Place of service: OFFICE Procedure code: 56928 Authorization: [employer] [address] Medrol (Chris) 4 mg tablets in a dose pack - Take 1 dose pk(s) by oral route. Qty: (1) 21 tablet dispensing pack Refills: 0 Pharmacy: [facility] # Augmentin 875 mg-125 mg tablet - Take 1 tablet(s) every 12 hours by oral route for 7 days. Qty: (14) tablet Refills: 0 Pharmacy: [facility] # Return to Office JOSSELYN KLEIN APRN [...] recorded Electronically Signed by: JOSSELYN KLEIN APRN, DRILLING MACHINE OPERATOR [place] [facility] 11/23/2022 13:13:35 Progress Note : [address] [address]NBOHY, Sharon (id #[id number], : 1965) [address] [address] Encounter Summary - Progress Note Date Printed: [...] received this fax in error, please visit [email or web address] to notify the sender and confirm that the information will be destroyed. If you do not have internet access, please call to notify the sender and confirm that the information will be destroyed. Thank you for your attention and cooperation. [ID:[id number]] Patient Bia James (57yo, F) #[id number] 1965 Patient Demographics: Address [address] [facility] [place] [address] Work Phone Encounter Notes: Encounter Reason/Date f/u [...] days. Qty: (180) capsule Refills: 1 Pharmacy: [facility] #[id number] Note to Pharmacy: dose change tramadol 50 mg tablet - Take 1 tablet(s) twice a day by oral route. Qty: (180) tablet Refills: 0 Pharmacy: [facility] # pregabalin 150 mg capsule - Take 1 capsule(s) twice a day by oral route. Qty: (180) capsule Refills: 0 Pharmacy: [facility] # ropinirole 3 mg tablet - Take 1 tablet(s) 3 times a day by oral route. Qty: (270) tablet Refills: 1 Pharmacy: [facility] #[id number] 2. Chronic low back pain-with recent injury feeling a pulling feeling and tightness will continue with lidocaine patches prnM54.50: Low back pain, unspecified 3. Neck pain-with abnormal lordosis and with wkzffivgsS07.2: Cervicalgia 4. Smooth muscle uzbfqQ06.838: Other muscle spasm potassium chloride ER 10 mEq tablet,extended release - Take 1 tablet(s) every day by oral route. Qty: (10) tablet Refills: 0 Pharmacy: [facility] #97016 magnesium 400 mg (as magnesium oxide) tablet - Take 1 tablet(s) every day by oral route for 10 days. Qty: (10) tablet Refills: 0 Pharmacy: [facility] #31033 Return to Office Patient will return to [...] tablet(s) every day by oral route.02/26/23 prescribed JOSSELNY KLEIN APRN pregabalin 150 mg capsuleTake 1 [...] recorded Electronically Signed by: JOSSELYN KLEIN APRN, DRILLING MACHINE OPERATOR Samreen Bae [facility] 02/27/2023 07:59:43 Procedures Surgical History Date Name Laterality Status Provider Name and Address Organization Details Recorded Time Apron Operator Surgery completed [facility] 04/25/2017 11:24:50 delivery completed [facility] 04/25/2017 11:24:55 Imaging Results None recorded. [...] (BMI) Body weight Heart rate Oxygen saturation Systolic And Diastolic Provider Name and Address Organization Details Last Updated DateTime 3 170.18 cm 29.6 kg/m2 72008.9 6 g 70 /min 97 % 112/64 mm[Hg] Samreen [facility] 3 15:44:32 Date Recorded Body height Body mass index (BMI) Body weight Respiratory rate Heart rate Systolic And Diastolic Provider Name and Address Organization Details Last Updated DateTime 2 170.18 cm 31 kg/m2 48145.2 9 g 16 /min 67 /min 114/76 mm[Hg] Wisam linares [facility] 2 11:49:28 Date Recorded Body height Body mass index (BMI) Body weight Heart rate Oxygen saturation Systolic And Diastolic Provider Name and Address Organization Details Last Updated DateTime 3 170.18 cm 28.2 kg/m2 37778.6 3 g 88 /min 97 % 122/74 mm[Hg] Samreen [facility] 3 15:06:24 Date Recorded Body height Body mass index (BMI) Body weight Heart rate Systolic And Diastolic Provider Name and Address Organization Details Last Updated DateTime 05/23/2022 170.18 cm 29.1 kg/m2 62925.18 g 76 /min 118/78 mm[Hg] Samreen Bae [facility] 05/23/2022 14:35:29 Date Recorded Body height Body mass index (BMI) Body weight Heart rate Respiratory rate Oxygen saturation Systolic And Diastolic Provider Name and Address Organization Details Last Updated DateTime 2 170.18 cm 29.5 kg/m2 12158.4 7 g 74 /min 16 /min 95 % 110/60 mm[Hg] Fatmata Donaldson [facility] 2 13:51:37 Social History Question Answer Notes LastModified by Organizat ion Details LastModified Time Tobacco Smoking Status Never [facility]oker [facility] 01/22/2017 14:09:40 Accident Related Injury Yes [email or web address] Information not available 07/14/2020 What Is Your Level Of Caffeine Consumption? Moderate Soda Daily [email or web address] Information not available 07/14/2020 How Much Tobacco Do You Chew? None [email or web address] Information not available 12/24/2018 Which Of Your Hands Is Dominant? Right [email or web address] Information not available 07/14/2020 Rate The Severity Of Your Symptoms: (0-10 With 0=none And 10=worst Possible) 6 [email or web address] Information not available 07/14/2020 Date Of Injury: 06/20/2020 [email or web address] Informati on not available 07/14/2020 Have You Been Treated For This Problem Before? No Xrays Only [email or web address] Information not available 07/14/2020 How Long Have You Had These Symptoms? 06/20/2020 [email or web address] Information not available 07/14/2020 Will This Be Filed As Workers' Compensation? No Information not available 07/14/2020 Marital Status [email or web address] Informatio n not available 07/14/2020 What Was The Date Of Your Most Recent Tobacco Screening? 02/26/2023 [email or web address] Information not available 02/26/2023 How Much Tobacco Do You Smoke? No [email or web address] Information not available 12/24/2018 Has Tobacco Cessation Counseling Been Provided? No [email or web address] Information not available 12/24/2018 How Many Years Have You Smoked Tobacco? 0 [email or web address] Information not available 12/24/2018 Have You Recently Traveled Abroad? No [email or web address] Information not available 05/23/2022 Work Related Injury? No [email or web address] Information not available 07/14/2020 Sex: Unknown Functional Status Question Answer Note LastModified by Organizat ion Details LastModified Time Do you use any illicit or recreational drugs? Yes [email or web address] Information not available 05/23/2022 What is your level of alcohol consumption? Moderate [email or web address] Information not available 02/26/2023 Do you or have you ever used smokeless tobacco? Never used smokeless tobacco Information not available 07/14/2020 Are you currently employed? No [email or web address] Information not available 07/14/2020 What is your occupation? retired. [email or web address] Information not available 07/14/2020 Do you or have you ever used e-cigarettes or vape? Current user of electronic cigarettes [email or web address] Information not available 09/25/2019 Mental Status None recorded. Family History Relationship Description Onset Age of this Age Resolved Age Notes LastModified by Organization Details LastModified Time Mother Arthritis [email or web address] Not availa ble 04/25/2017 11:24:25 Father Arthritis [email or web address] Not availa ble 04/25/2017 11:24:32 Medical History [...] N Immune System Disorder N Heart Attack ([place]) N Mental Illness N Neurological Problems N Diabetes N Seizures/Epilepsy N Sleep Apnea N Heart Disease N Hypertension N Osteoporosis N Gynecological HistoryNo gynecological history recorded. Obstetrics History GPAL:G 0 P 0 0 0 0 Past Encounters Encounter ID Performer Location Encounter Start Date Encounter Closed Date Diagnosis/Indication Diagnosis SNOMED-CT Code Diagnosis ICD10 Code Diagnosis IMO Codes Diagnosis Note [id number] [place] [address] [place] [address] 1 01/22/2017 13:45:17 01/22/2017 15:11:38 Fibromyalgia 897646268 M79.7 labs are goodnormal systemic examinatio nrefills today Vitamin D deficiency 347 32899 E55.9 [id number] J[place] [address] [place] [address] 1 04/25/2017 10:33:12 04/25/2017 13:12:54 Fibromyalgia 088270405 M79.7 labs are goodnormal systemic examinatio nrefills today Long-term drug therapy 434370680 Z79.288 [id number] JOSSELYN KLEIN APRN [facility] [address] [place] [address] 1 07/23/2017 11:22:34 07/24/2017 11:57:48 Fibromyalgia 073233063 M79.7 stable systemic examinatio nwithout interval infections no major flaressome mild flares with weather changeslas t labs were good; none needed todayrefil ls today [id number] JOSSELYN KLEIN APRN [facility] [address] [place] [address] 1 11/01/2017 09:03:40 11/01/2017 10:01:09 Fibromyalgia 293249784 M79.7 stable systemic examinatio nwithout interval infections no major flaressome mild flares with weather changeslas t labs were good; none needed todayrefil ls today [id number] J[place]N [place] [address] [place] [address] 1 01/21/2018 13:11:47 01/21/2018 13:59:28 Fibromyalgia 896231888 M79.7 stable systemic examinatio nwithout interval infections no major flaressome mild flares with weather changes with joint painprefer s ibuprofen instead of diclofenac will refill todaylast labs were good; none needed today [id number] JOSSELYN KLEIN APRN [facility] [address] [place] [address] 1 04/22/2018 10:53:15 04/22/2018 12:03:46 Fibromyalgia 089929181 M79.7 stable systemic examinatio nwithout interval infections flared with weather changes with joint painprefer s ibuprofen instead of diclofenac will refill todaylabs today Fatigue 33457959 R53.83 worsening with increased pain and tenderness will obtain further labs today Dizziness 385971452 R42 increased with rising from a seated position too fast some dizziness with walking; worsening without recent change in the neurontin Low back pain 237452737 M54.5 limited rom pain in the low back recurring with burning and tingling radiating to the bilateral feet Increased frequency of urination 970052113 R35.0 will assess further today with back pain, tenderness and frequency [id number] FROY BRYANT MD [facility] [address] [place] [address] 07/22/2018 11:21:50 07/23/2018 07:41:24 Fibromyalgia 083213830 M79.7 she has features of chronic fibromyalg [...] and low salt diet. Generalize d osteoarthritis 515990786 M15.9 she has chronic degenerati ve joint disease. However no evidence of inflammato ry joint disease noted. No evidence of joint effusions or synovitis noted. Decide weight loss and regular exercises, she can continue with the ibuprofen 800 mg up to 3 times a day only as needed with food. Refills are given today. [id number] JOSSELYN KLEIN APRN [facility] [address] [place] [address] 12/24/2018 13:29:57 12/25/2018 10:59:10 Fibromyalgia 443162913 M79.7 she has features of chronic fibromyalg ia syndrome which seems to be under good control. No evidence of an associated inflammato ry joint disease noted. I suggested her to continue with gabapentin 400 mg 3 times a day along with duloxetine at 60 mg once a day. Generalize d osteoarthritis 765723814 M15.9 she has chronic degenerati ve joint disease. However no evidence of inflammato ry joint disease noted. No evidence of joint effusions or synovitis noted. Decide weight loss and regular exercises, she can continue with the ibuprofen 800 mg up to 3 times a day only as needed with food. Refills are given today. [id number] JOSSELYN RAMIREZJANET DAMON R[facility]OL [facility] [address] [place] [address] 06/26/2019 12:57:05 06/26/2019 13:45:04 Fibromyalgia 654773893 M79.7 she has features of chronic fibromyalg ia syndrome which seems to be under good control. No evidence of an associated inflammato ry joint disease noted. I suggested her to continue with gabapentin 400 mg 3 times a day along with duloxetine at 60 mg once a day. Generalize d osteoarthritis 981919362 M15.9 she has chronic degenerati ve joint disease. However no evidence of inflammato ry joint disease noted. No evidence of joint effusions or synovitis noted. Decide weight loss and regular exercises, she can continue with the ibuprofen 800 mg up to 3 times a day only as needed with food. Refills are given today. Pain of bi lateral hip joints 1281740043 7571992 M25.551 M25.967 [id number] JOSSELYNCHADWICK KLEIN APRN R[facility]OL [facility] [address] [place] [address] 09/12/2019 08:19:16 09/12/2019 08:51:18 Fibromyalgia 238845390 M79.7 she has features of chronic fibromyalg ia syndrome which seems to be under good control. No evidence of an associated inflammato ry joint disease noted. I suggested her to continue with gabapentin 400 mg 3 times a day along with duloxetine at 60 mg once a day. Generalize d osteoarthritis 675445844 M15.9 she has chronic degenerati ve joint [...] we will try to see if a mural painter can get her on a treatment regimen that can help her leg pain Chronic back pain 408081 002 M54.9 [id number] TOMMY ROSENBERG MD [facility] [address] [place] [address] 09/25/2019 14:05:05 09/29/2019 15:24:18 Long-term drug therapy 858524710 Z79.899 Chronic low back pain 27 2098922 M54.5 Pain of mu ltiple joints 76434538 M25.50 Osteoarthr itis of multiple joints 840692119 M15.9 Fibromyalgia 042921469 M 79.7 Lumbar fac et joint pain 198074145 M54.5 [id number] TOMMY ROSENBERG MD PAIN MEDICINE CLOSED [address] [place] [address] 10/01/2019 14:13:15 10/02/2019 09:26:30 Long-term drug therapy 847406628 Z79.899 Chronic low back pain 27 6681256 M54.5 Pain of mu ltiple joints 85507588 M25.50 Osteoarthr itis of multiple joints 657276947 M15.9 Fibromyalgia 707486377 M 79.7 Lumbar fac et joint pain 041619849 M54.5 [id number] TOMMY ROSENBERG MD PAIN MEDICINE CLOSED [address] [place] [address] 10/23/2019 09:43:31 10/23/2019 10:13:18 Long-term drug therapy 594959541 Z79.899 Chronic low back pain 27 8304404 M54.5 Pain of mu ltiple joints 00664084 M25.50 Osteoarthr itis of multiple joints 197985870 M15.9 Fibromyalgia 037777483 M 79.7 Lumbar fac et joint pain 498347221 M54.5 [id number] TOMMY ROSENBERG MD PAIN MEDICINE CLOSED [address] [place] [address] 12/22/2019 13:27:14 12/23/2019 12:21:59 Long-term drug therapy 593351621 Z79.899 Chronic low back pain 27 6617359 M54.5 Pain of mu ltiple joints 45227535 M25.50 Osteoarthr itis of multiple joints 454896640 M15.9 Fibromyalgia 072536587 M 79.7 Lumbar fac et joint pain 887487570 M54.5 [id number] FROY BRYANT MD RHEUMATOL [address] [address] 12/24/2019 07:59:07 12/24/2019 09:54:06 Fibromyalgia 010863064 M79.7 present 4-year-old female with chronic fibromyalg [...] follow-up in 6 months Generalize d osteoarthritis 111415003 M15.9 generalize d osteoarthr itis and mechanical back pain.chron ic and clinically stable on long-term pain management . [id number] TOMMY ROSENBERG MD PAIN MEDICINE CLOSED [address] [place] [address] 02/12/2020 11:11:40 02/12/2020 13:41:21 Long-term drug therapy 458597103 Z79.899 Chronic low back pain 27 0982346 M54.5 Pain of mu ltiple joints 06855461 M25.50 Osteoarthr itis of multiple joints 465392849 M15.9 Fibromyalgia 801967327 M 79.7 Lumbar fac et joint pain 495791702 M54.5 [id number] JOSSELYN KLEIN APRN RHEUMATOL [address] [address] 07/08/2020 15:11:49 07/08/2020 15:59:31 Fibromyalgia 254443544 M79.7 present 4-year-old female with chronic fibromyalg ia syndrome, clinically stable. She is now followed by Dr. Rosenberg for pain management . Continue with Cymbalta at 120 mg once a day. She is on low-dose hydrocodon e 2.5 mg a day along with gabapentin which are prescribed by Dr. Rosenberg. follow-up in 6 months Chronic low back pain 27 0857152 M54.5 Pain of le ft ankle joint [id number] 6407756 M25.572 fell on 06/20/2020 and had a lot of stiffness, swelling and bruising; left ankle is 3 x the size of the right ankle still; painful to touch, withdraws to pain unable to tolerate [id number] IVA LEVY MD [facility]TH[facility]EDI [facility] CLOSED [address] [place] [address] 07/14/2020 14:10:15 07/14/2020 14:50:43 Sprain of left ankle 0115969547 8757725 S93.492A Body mass index 30+ - obesity 324066899 Z68.34 [id number] TOMMY ROSENBERG MD PAIN MEDICINE CLOSED [address] [place] [address] 09/07/2020 10:07:25 09/07/2020 10:52:48 Long-term drug therapy 923425408 Z79.899 Chronic low back pain 27 8040684 M54.5 Pain of mu ltiple joints 07825693 M25.50 Osteoarthr itis of multiple joints 164546008 M15.9 Fibromyalgia 056944201 M 79.7 Lumbar fac et joint pain 892120198 M54.5 [id number] TOMMY ROSENBERG MD PAIN MEDICINE CLOSED [address] [place] [address] 11/10/2020 14:56:45 11/10/2020 15:57:04 Long-term drug therapy 097952754 Z79.899 Chronic low back pain 27 4662445 M54.5 Pain of mu ltiple joints 40716362 M25.50 Osteoarthr itis of multiple joints 709463129 M15.9 Fibromyalgia 894515211 M 79.7 Lumbar fac et joint pain 412073139 M54.5 [id number] TOMMY ROSENBERG MD PAIN MEDICINE CLOSED [address] [place] [address] 02/10/2021 09:48:45 02/10/2021 10:40:20 Long-term drug therapy 930428820 Z79.899 Chronic low back pain 27 0426615 M54.5 Pain of mu ltiple joints 50708044 M25.50 Osteoarthr itis of multiple joints 384055650 M15.9 Fibromyalgia 857024674 M 79.7 Lumbar fac et joint pain 121611316 M54.5 [id number] JOSSELYN KLEIN APRN RHEUMATOL [facility] [address] [place] [address] 06/28/2021 09:56:13 06/28/2021 10:45:02 Fibromyalgia 465975989 M79.7 present 4-year-old female with chronic fibromyalg ia syndrome, clinically stable. She is now followed by Dr. Rosenberg for pain management . Continue with Cymbalta at 120 mg once a day. She is on low-dose hydrocodon e 2.5 mg a day along with gabapentin which are prescribed by Dr. Rosenberg. follow-up in 6 months Pain of le ft ankle joint 5628412832 2185985 M25.572 fell on 06/20/2020 and had a lot of stiffness, swelling and bruising; left ankle is 3 x the size of the right ankle still; painful to touch, withdraws to painimprov ed overallxra ys were stable Chronic low back pain 27 5170636 M54.50 [id number] JOSSELYN KLEIN APRN RHEUMATOL OGY [address] [place] [address] 12/20/2021 11:04:29 12/20/2021 15:33:24 Fibromyalgia 507973986 M79.7 present 4-year-old female with chronic fibromyalg ia syndrome, clinically stable. She is now followed by Dr. Rosenberg for pain management . Continue with Cymbalta at 120 mg once a day. She is on low-dose hydrocodon e 2.5 mg a day along with gabapentin which are prescribed by Dr. Rosenberg. follow-up in 6 months Chronic low back pain 27 1400597 M54.50 Low back pain 133257106 M54.50 [id number] JOSSELYN KLEIN APRN RHEUMATOL OGY [address] [place] [address] 05/23/2022 14:03:21 05/29/2022 11:55:46 Fibromyalgia 656500820 M79.7 present 56-year-ol d female with chronic fibromyalg ia syndrome, clinically stable.shC ontinue with Cymbalta at 120 mg once a day.will restart tramadol 100 mg dailyfurth er start on pregabalin 150 mg bid instead of gabapentin which is no longer working for her Chronic low back pain 27 3161451 M54.50 with recent injury feeling a pulling feeling and tightnessw ill provide with 120 mg im depo medrol injection todaywill continue with lidocaine patches [id number] JOSSELYN KLEIN APRN RHEUMATOL OGY SB [address] [place] [address] 08/22/2022 13:27:22 08/24/2022 14:03:53 Fibromyalgia 162134624 M79.7 present 56-year-ol d female with chronic fibromyalg ia syndrome, clinically stable.shC ontinue with Cymbalta at 120 mg once a day.will restart tramadol 100 mg dailyfurth er start on pregabalin 150 mg bid instead of gabapentin which is no longer working for her Chronic low back pain 27 9519943 M54.50 with recent injury feeling a pulling feeling and tightness will continue with lidocaine patches prn [id number] JOSSELYN KLEIN APRN RHEUMATOL [place] [address] 11/21/2022 15:37:05 11/24/2022 10:49:57 Fibromyalgia 811490113 M79.7 present 57-year-ol d female with chronic fibromyalg ia syndrome, clinically stable. Continue with Cymbalta at 120 mg once a day.will restart tramadol 100 mg dailyshe pregabalin 150 mg bid instead of gabapentin which is no longer working for her Chronic low back pain 27 4292167 M54.50 with recent injury feeling a pulling feeling and tightness will continue with lidocaine patches prn Neck pain 48301041 M54.2 Cough 33052561 R05.9 [id number] JOSSELYN KLEIN APRN RHEUMATOL [facility] [address] [place] [address] 02/26/2023 14:58:11 02/27/2023 08:01:40 Fibromyalgia 695967279 M79.7 present 57-year-ol d female with chronic fibromyalg ia syndrome, clinically stable. Continue with Cymbalta at 120 mg once a day.will restart tramadol 100 mg dailyshe pregabalin 150 mg bid instead of gabapentin which is no longer working for her Chronic low back pain 27 4516150 M54.50 with recent injury feeling a pulling feeling and tightness will continue with lidocaine patches prn Neck pain 87264135 M54.2 with abnormal lordosis and with scoliosis Smooth muscle spasm 1285 [address]798 M62.838 Health Concerns Section Related Observation LastModified by Organization Detai ls LastModified Time None Recorded Concern Status LastModified by Organization Details LastModified Time None Recorded Advance Directives Directive None Recorded Payers Insurance Date Sequence Insurance Name Policy Number Policy Marquez Covered Member ID Marquez Member ID Guarantor Name 06/19/2025 1 [employer] [id number] Iva James [id number] Bia James 06/19/2025 1 [facility] (MEDICAID REPLACEMENT - HMO) Bia James [id number] Bia James 06/19/2025 1 [facility] (PPO) [id number] Iva James [id number] Bia James Notes Date Note Type Note [...] others are negative JOSSELYN KLEIN APRN [address] [place], [address], [facility] 05/23/2022 14:59:42 08/22/2022 text/html ROS as noted in the HPI f/u with fibromyalgia; doing fair with weather; acting up with weather changes left ankle is better now; without interval infection; no s/e from medications; currently denies bowel or bladder changes, chest pain, shortness of air, rashes, fevers and all others are negative JOSSELYN KLEIN APRN [address] [place], [address], [facility] 08/22/2022 14:36:07 11/21/2022 text/html ROS as noted in the HPI f/u with fibromyalgia; doing fair with weather; acting up with weather changes left ankle is better now; without interval infection; no s/e from medications; currently denies bowel or bladder changes, chest pain, shortness of air, rashes, fevers and all others are negative JOSSELYN KLEIN APRN [address] [place], [address], [facility] 11/21/2022 16:07:23 02/26/2023 text/html ROS as noted in the HPI f/u with fibromyalgia; doing fair with weather; acting up with weather changes having a lot of dale horses; without interval infection; no s/e from medications; currently denies bowel or bladder changes, chest pain, shortness of air, rashes, fevers and all others are negative JOSSELYN KLEIN APRN [address] [place], [address], [facility] 02/26/2023 15:17:56 OBGyn Episode No OBEpisode recorded.
--- NOTE | 2025-08-25 12:11 | XR_ITS ---
FINAL REPORT CLINICAL HISTORY: CHRONIC MIDLINE BACK PAIN W/SCIATICA COMPARISON: 11/28/2023 FINDINGS: The vertebrae are normal height. There is stable anterolisthesis of L4 on 5 measuring 5 mm. Mild diffuse degenerative disc changes is identified. There is very minimal movement with flexion and extension maneuvers. There is no gross instability although sensitivity for instability is markedly reduced. Prevertebral soft tissues are unremarkable. IMPRESSION: Degenerative changes as detailed above. Reviewed, Interpreted and Dictated by Savanna Schmid MD Transcribed by Ashlie Capellan Authenticated and [facility]
== END 2025-08-25 23:59 ==
LOC: RAD 12:07
PROVIDERS: PCP Family Medicine; Visit Provider Family Medicine
DX: M54.41 Lumbago with sciatica, right side (principal); G89.29 Other chronic pain; M43.16 Spondylolisthesis, lumbar region
CPT/HCPCS: 72114